=== PATIENT | male | born 1950 | race Caucasian/White ===

== ENCOUNTER 2018-10-04 13:05 | Inpatient (IN) | payer MEDICARE, OTHER, SELFPAY ==
[2018-10-04 13:18] VITALS: BP 129/78; PULSE 70; RESP 18; TEMP 36.4; O2SAT 97; BMI 30.9
[2018-10-04] MEDS: oxyCODONE 5 MG Tablet PO ×3 (14:32→23:51)
--- NOTE | 2018-10-04 14:48 | CON.PCM_ITS ---
Problem List (1) Closed right hip fracture Status: Acute (2) Hypertension Status: Chronic Reason for Consult Date of Consultation: 10/04/18 Reason for Consultation: Acute rehab after right hip fracture status post ORIF History of Present Illness: The patient is a 67 year old M with history of hypertension and back pain and history of fall is being admitted in acute rehab after closed right hip surgery status post right ORIF with IM nailing on 09/28 2018. The patient has history of hypertension and was taking losartan?HCTZ 50-12.5 mg 1 tablet daily at home but his blood pressure was low during hospital stay and medication was held. Patient also has mild constipation and small bowel movement yesterday. Patient had by and enlarge uneventful postoperative course except low blood pressure as mentioned above. Right hip is dressing has bloodstained. Patient was seen by orthopedic surgeon DR. MAC [facility] where surgery was done yesterday and was told to keep the dressing for 1 week even though it was blood stained. [] Past Medical History Past Medical History (Chronic Problems): Chronic Problems (Last Reviewed 09/11/18 @ 12:04 by Latha Hardy) Hypertension (Chronic) Medical History: Medical History (Last Reviewed 09/11/18 @ 12:04 by Latha Hardy) Back pain M54.9 Hayfever J30.1 HTN (hypertension) I10 Allergies No Known Allergies Allergy (Verified 09/11/18 12:03) Home Medications: Ambulatory Orders Medication Instructions Recorded Ascorbic Acid [C-1000] 1,000 mg PO DAILY 10/04/18 Cholecalciferol (VIT D3) [Vitamin 1,000 unit PO DAILY 10/04/18 D] Losartan/Hydrochlorothiazide 1 each PO DAILY 10/04/18 [Losartan-Hctz 50-12.5 mg Tab] Oxycodone [Oxyir] 5 - 10 mg PO Q4H PRN PRN 10/04/18 Smoking Status: Current every day smoker - *Family History Paternal History Items: No pertinent history Review of Systems Constitutional: Denies: Chills, Fever, Weight Change HEENT: Denies: Head Aches, Sinus Congestion, Sinus Drainage Cardiovascular: Denies: Chest Pain, Palpitations Respiratory: Denies: Cough, Shortness of breath at rest, Sputum production Gastrointestinal: Denies: Abdominal Pain, Nausea, Vomiting Genitourinary: Denies: Dysuria Musculoskeletal: Reports: Joint Pain, - - Right hip ORIF. Denies: Joint Tenderness Skin: Denies: Rash, Wounds Neurological: Reports: Balance problems, Incoordination. Denies: Focal weakness, Numbness, Tingling Psychiatric: Denies: Anxiety, Depression, Homicidal Ideations, Suicidal Ideations Hematologic/ Lymphatic: Denies: Easy Bruising, Easy Bleeding Patient Problems: Active and Suspected Problems (Last Reviewed 09/11/18 @ 12:04 by Latha Hardy) Closed right hip fracture (Acute) - Physical Exam General: Alert, Oriented x3, Cooperative HEENT: Atraumatic, PERRLA, EOMI, Normocephalic Neck: Supple, No JVD, Negative Carotid Bruits Lungs: Clear to auscultation, Normal air movement, No rhonchi, No wheeze, No rales Cardiovascular: Regular rate, Regular Rhythm, Normal S1, Normal S2, No murmurs Abdomen: Bowel Sounds Present, Soft, Non Tender, Non-Distended Extremities: No edema, Capillary Refill Less than 3 Seconds Skin: Ulcer/ Wound - Right ORIF surgical wound covered with dressing. Dry bloody stain is present, Rash Present - Mild bruise present at the operative site right hip Musculoskeletal: Arthritic Changes, Tenderness - Mild expected tenderness at the operative site on deep palpation Neurological: Cranial nerves II-XII grossly intact Psych/Mental Status: Normal Affect, Appropriate Vital Signs Temp Pulse Resp BP Pulse Ox 97.6 F L 70 18 129/78 H 97 10/04/18 13:18 10/04/18 13:18 10/04/18 13:18 10/04/18 13:18 10/04/18 13:18 Oxygen Delivery Method Room Air Weight: 209 lb 8 oz Body Mass Index (BMI) 30.9 Assessment/Plan All Active Problems (Last Reviewed 09/11/18 @ 12:04 by Latha Hardy) Closed right hip fracture (Acute) Acute bronchitis (Acute) The patient is a 67 year old M with history of hypertension and back pain and history of fall is being admitted in acute rehab after closed right hip surgery status post right ORIF with IM nailing on 09/28 2018. The patient has history of hypertension and was taking losartan?HCTZ 50-12.5 mg 1 tablet daily at home but his blood pressure was low during hospital stay and medication was held. Patient also has mild constipation and small bowel movement yesterday. Right hip is dressing has bloodstained. Patient was seen by orthopedic surgeon DR. MAC [facility] where surgery was done yesterday and was told to keep the dressing for 1 week even though it was blood stained. 1. Right hip closed fracture status post ORIF done at [facility]: PT and OT. Pain control as needed. Patient was discharged on OxyIR. 2. Hypertension: Patient losartan HCTZ 50?12.5 mg once daily. Hold it if systolic blood pressure is less than 120 mmHg. 3. Mild constipation: On MiraLAX and senna S as needed. DVT prophylaxis: Active ambulation. Code Visit Inpatient E&M: 98616 Init Hosp L2
--- NOTE | 2018-10-04 15:48 | PCM.HP.COS ---
<Pepito Angelo - Last Filed: 10/05/18 13:37> History of Present Illness The patient is a 67 year old M [] Past Medical History Past Medical History (Chronic Problems): Chronic Problems (Last Reviewed 09/11/18 @ 12:04 by Latha Hardy) Hypertension (Chronic) Medical History: Medical History (Last Reviewed 09/11/18 @ 12:04 by Latha Hardy) Back pain M54.9 Hayfever J30.1 HTN (hypertension) I10 Allergies No Known Allergies Allergy (Verified 09/11/18 12:03) Home Medications: Ambulatory Orders Medication Instructions Recorded Ascorbic Acid [C-1000] 1,000 mg PO DAILY 10/04/18 Cholecalciferol (VIT D3) [Vitamin 1,000 unit PO DAILY 10/04/18 D] Losartan/Hydrochlorothiazide 1 each PO DAILY 10/04/18 [Losartan-Hctz 50-12.5 mg Tab] Oxycodone [Oxyir] 5 - 10 mg PO Q4H PRN PRN 10/04/18 Patient Problems: Active and Suspected Problems (Last Reviewed 09/11/18 @ 12:04 by Latha Hardy) Closed right hip fracture (Acute) - Physical Exam Vital Signs Temp Pulse Resp BP Pulse Ox 36.6 C 63 12 108/60 94 10/05/18 07:10 10/05/18 09:49 10/05/18 06:39 10/05/18 09:49 10/05/18 06:39 Oxygen Flow Rate (L/min) 3 Oxygen Delivery Method Nasal Cannula Weight: 95 kg Body Mass Index (BMI) 30.9 Intake and Output for Last 24 Hours 10/03/18 10/04/18 10/05/18 23:59 23:59 23:59 Intake Total 240 / 240 400 / 400 Output Total 350 / 350 450 / 450 Balance -110 / -110 -50 / -50 Laboratory Tests Past 24 Hrs 10/05/18 10/05/18 10/05/18 06:24 06:24 06:24 WBC 8.8 RBC 3.47 L Hgb 10.2 L Hct 30.7 L MCV 88.5 MCH 29.4 MCHC 33.2 RDW 12.4 RDW Differential 40.3 Plt Count 187 MPV 9.2 Sodium 139 Potassium 4.1 Chloride 104 Carbon Dioxide 28.0 Anion Gap 7 BUN 28 H Creatinine 1.11 Estim Creat Clear Calc 66.35 Est GFR (MDRD) Af Amer 85 Est GFR (MDRD) Non-Af 71 BUN/Creatinine Ratio 25.2 H Glucose 110 H Calcium 8.1 L Phosphorus 3.0 Magnesium 2.3 Troponin I < 0.015 10/05/18 10/05/18 09:05 12:55 WBC RBC Hgb Hct MCV MCH MCHC RDW RDW Differential Plt Count MPV Sodium Potassium Chloride Carbon Dioxide Anion Gap BUN Creatinine Estim Creat Clear Calc Est GFR (MDRD) Af Amer Est GFR (MDRD) Non-Af BUN/Creatinine Ratio Glucose Calcium Phosphorus Magnesium Troponin I < 0.015 Pending Assessment/Plan All Active Problems (Last Reviewed 09/11/18 @ 12:04 by Latha Hardy) Closed right hip fracture (Acute) Acute bronchitis (Acute) Patient interviewed and examined. Agree with nurse practitioner notes. He appears to have suffered a right hip fracture which then subsequently led to a fall. He is now status post ORIF. He reports constipation but no other complaints. Describe what sounds like REM sleep behavior disorder as well although at this point he does not feel that this is a major issue and does not want this treated will monitor. Plan as above. <JuanCamila hoang - Last Filed: 10/05/18 15:37> History of Present Illness Date of Admission: 10/04/18 Chief Complaint: ORIF Right Hip The patient is a 67 year old right handed male, who was admitted to the rehab unit for rehabilitation after suffering a Mechanical fall from standing. He has a PMH of Hypertension and is on Losartan-HCTZ at home. He under went an ORIF of the right hip with IM nailing by Dr. Terry at [facility] on 09/28/18, postoperative course was uneventful except for low blood pressure during his hospital stay, his BP medication was held. On admission here, his blood pressure is 129/78. Weight bearing status is as tolerated with full range of motion, quad isometrics but no straight leg raises or active abduction. He lives with his girlfriend in a single story home with 3 steps to get into the house. He was previously completely functionally independent and is admitted to the rehab unit in order to restore his previous level of functional independence. Past Medical History Medical History: Medical History (Last Reviewed 09/11/18 @ 12:04 by Ltaha Hardy) Back pain M54.9 Hayfever J30.1 HTN (hypertension) I10 Allergies No Known Allergies Allergy (Verified 09/11/18 12:03) Surgical History: cataract, - - Cyst removed from gum-oral Lives: Spouse/ Significant Other Smoking Status: Current every day smoker Tobacco Use: Cigars, Chew Alcohol: Occasional Drugs: None - *Family History Paternal History Items: No pertinent history Review of Systems Constitutional: Denies: Chills, Fever, Weight Change HEENT: Denies: Head Aches, Sinus Congestion, Sinus Drainage Cardiovascular: Denies: Chest Pain, Palpitations Respiratory: Denies: Cough, Shortness of breath at rest, Sputum production Gastrointestinal: Denies: Abdominal Pain, Nausea, Vomiting Genitourinary: Denies: Dysuria Musculoskeletal: Denies: Joint Pain, Joint Tenderness Skin: Denies: Rash, Wounds Neurological: Denies: Numbness, Tingling, Focal weakness Psychiatric: Denies: Anxiety, Depression, Homicidal Ideations, Suicidal Ideations Hematologic/ Lymphatic: Denies: Easy Bruising, Easy Bleeding VTE Information - Inpt Only VTE Present on Admission: No VTE Mechan Device Prophylaxis: SCD's, Knee High ULICES Hose VTE Pharm Prophylaxis ordered?: Yes - Physical Exam General: Alert, Oriented x3, Cooperative HEENT: Atraumatic, PERRLA, EOMI, Normocephalic Neck: Supple, No JVD, Negative Carotid Bruits Lungs: Clear to auscultation, Normal air movement Cardiovascular: Regular rate, No murmurs Abdomen: Bowel Sounds Present, Soft, Non Tender Extremities: No edema, Capillary Refill Less than 3 Seconds, - - Right hip incision - optifoam Skin: No rashes, No breakdown Musculoskeletal: No Tenderness to Palpation of Joints or Extremities Neurological: Cranial nerves II-XII grossly intact Psych/Mental Status: Normal Affect, Appropriate, Alert and oriented to time, place, person, mood and affect Vital Signs Temp Pulse Resp BP Pulse Ox 97.6 F L 70 18 129/78 H 97 10/04/18 13:18 10/04/18 13:18 10/04/18 13:18 10/04/18 13:18 10/04/18 13:18 Oxygen Delivery Method Room Air Weight: 95.028 kg Body Mass Index (BMI) 30.9 Active Medications Acetaminophen (Tylenol) 1,000 mg PO TID [facility] Ascorbic Acid (Vitamin C) 1,000 mg PO DAILY [facility] Stop: 11/03/18 08:01 Bisacodyl (Dulcolax) 10 mg RECTAL .PRN X 1 PRN PRN Reason: Constipation Cholecalciferol (Vitamin D) 1,000 unit PO DAILY [facility] Hydrochlorothiazide (Hydrochlorothiazide) 12.5 mg PO DAILY [facility] Losartan Potassium (Cozaar) 50 mg PO DAILY [facility] Magnesium Hydroxide (Milk Of Magnesia) 30 ml PO .PRN X 1 PRN PRN Reason: Constipation Oxycodone HCl (Oxyir) 5 - 10 mg PO Q4H PRN PRN PRN Reason: PAIN Last Admin: 10/04/18 14:32 Dose: 10 mg Polyethylene Glycol (Miralax) 17 gm PO BID [facility] Senna/Docusate Sodium (Senokot-S, Angela-Colace) 2 tablet PO BID [facility] Assessment/Plan Debility status post Right ORIF with IM nailing. Goal of rehab is episcopalian of prior level of functional independence. Plan: - Physical therapy for gait and balance - Occupational Therapy for ADLs - Speech therapy - As needed analgesics - Bowel protocol - DVT prophylaxis: SCDs, ASA 81 mg BID x i month, per Orthopedics team, - Hypertension: Stable with good control, continue home dose of Losartan - HCTZ - Post op anemia, (did not require blood transfusion) - resolved Hgb on discharge from [facility] was 11.6. - B/L TKA Incision site C/D/I, => healing nicely, steri strips are beginning to fall off, no redness or warmth noted around incision area. - Tobacco dependence counseled on cessation, offered nicotine patch for tobacco cravings, patient refused - NICOLE with CR 1.5 - has resolved, continue to monitor renal panel - Hematuria - recheck urine on admission - Weight bearing status => WBAT with full range of motion, quad isometrics but no straight leg raises or active abduction - Wound care => leave dressing intact, may shower, may remove optifoam dressing in 7 - 10 days, leave prineo tape stripe for 2-3 weeks. - Incision site => The Dressing has small amount of bloody drainage, there is slight edema around the incision, with ecchymosis along the thigh and back of knee - Follow up appointment with Dr. Lima in 2-3 weeks, call to make an appointment
--- NOTE | 2018-10-04 16:07 | HP.PCM.COS_ITS ---
<Pepito Angelo - Last Filed: 10/05/18 13:37> History of Present Illness The patient is a 67 year old M [] Past Medical History Past Medical History (Chronic Problems): Chronic Problems (Last Reviewed 09/11/18 @ 12:04 by Latha Hardy) Hypertension (Chronic) Medical History: Medical History (Last Reviewed 09/11/18 @ 12:04 by Latha Hardy) Back pain M54.9 Hayfever J30.1 HTN (hypertension) I10 Allergies No Known Allergies Allergy (Verified 09/11/18 12:03) Home Medications: Ambulatory Orders Medication Instructions Recorded Ascorbic Acid [C-1000] 1,000 mg PO DAILY 10/04/18 Cholecalciferol (VIT D3) [Vitamin 1,000 unit PO DAILY 10/04/18 D] Losartan/Hydrochlorothiazide 1 each PO DAILY 10/04/18 [Losartan-Hctz 50-12.5 mg Tab] Oxycodone [Oxyir] 5 - 10 mg PO Q4H PRN PRN 10/04/18 Patient Problems: Active and Suspected Problems (Last Reviewed 09/11/18 @ 12:04 by Latha Hardy) Closed right hip fracture (Acute) - Physical Exam Vital Signs Temp Pulse Resp BP Pulse Ox 36.6 C 63 12 108/60 94 10/05/18 07:10 10/05/18 09:49 10/05/18 06:39 10/05/18 09:49 10/05/18 06:39 Oxygen Flow Rate (L/min) 3 Oxygen Delivery Method Nasal Cannula Weight: 95 kg Body Mass Index (BMI) 30.9 Intake and Output for Last 24 Hours 10/03/18 10/04/18 10/05/18 23:59 23:59 23:59 Intake Total 240 / 240 400 / 400 Output Total 350 / 350 450 / 450 Balance -110 / -110 -50 / -50 Laboratory Tests Past 24 Hrs 10/05/18 10/05/18 10/05/18 06:24 06:24 06:24 WBC 8.8 RBC 3.47 L Hgb 10.2 L Hct 30.7 L MCV 88.5 MCH 29.4 MCHC 33.2 RDW 12.4 RDW Differential 40.3 Plt Count 187 MPV 9.2 Sodium 139 Potassium 4.1 Chloride 104 Carbon Dioxide 28.0 Anion Gap 7 BUN 28 H Creatinine 1.11 Estim Creat Clear Calc 66.35 Est GFR (MDRD) Af Amer 85 Est GFR (MDRD) Non-Af 71 BUN/Creatinine Ratio 25.2 H Glucose 110 H Calcium 8.1 L Phosphorus 3.0 Magnesium 2.3 Troponin I < 0.015 10/05/18 10/05/18 09:05 12:55 WBC RBC Hgb Hct MCV MCH MCHC RDW RDW Differential Plt Count MPV Sodium Potassium Chloride Carbon Dioxide Anion Gap BUN Creatinine Estim Creat Clear Calc Est GFR (MDRD) Af Amer Est GFR (MDRD) Non-Af BUN/Creatinine Ratio Glucose Calcium Phosphorus Magnesium Troponin I < 0.015 Pending Assessment/Plan All Active Problems (Last Reviewed 09/11/18 @ 12:04 by Latha Hardy) Closed right hip fracture (Acute) Acute bronchitis (Acute) Patient interviewed and examined. Agree with nurse practitioner notes. He appears to have suffered a right hip fracture which then subsequently led to a fall. He is now status post ORIF. He reports constipation but no other complaints. Describe what sounds like REM sleep behavior disorder as well although at this point he does not feel that this is a major issue and does not want this treated will monitor. Plan as above. <JuanCamila hoang - Last Filed: 10/05/18 15:37> History of Present Illness Date of Admission: 10/04/18 Chief Complaint: ORIF Right Hip The patient is a 67 year old right handed male, who was admitted to the rehab unit for rehabilitation after suffering a Mechanical fall from standing. He has a PMH of Hypertension and is on Losartan-HCTZ at home. He under went an ORIF of the right hip with IM nailing by Dr. Terry at [facility] on 09/28/18, postoperative course was uneventful except for low blood pressure during his hospital stay, his BP medication was held. On admission here, his blood pressure is 129/78. Weight bearing status is as tolerated with full range of motion, quad isometrics but no straight leg raises or active abduction. He lives with his girlfriend in a single story home with 3 steps to get into the house. He was previously completely functionally independent and is admitted to the rehab unit in order to restore his previous level of functional independence. Past Medical History Medical History: Medical History (Last Reviewed 09/11/18 @ 12:04 by Latha Hardy) Back pain M54.9 Hayfever J30.1 HTN (hypertension) I10 Allergies No Known Allergies Allergy (Verified 09/11/18 12:03) Surgical History: cataract, - - Cyst removed from gum-oral Lives: Spouse/ Significant Other Smoking Status: Current every day smoker Tobacco Use: Cigars, Chew Alcohol: Occasional Drugs: None - *Family History Paternal History Items: No pertinent history Review of Systems Constitutional: Denies: Chills, Fever, Weight Change HEENT: Denies: Head Aches, Sinus Congestion, Sinus Drainage Cardiovascular: Denies: Chest Pain, Palpitations Respiratory: Denies: Cough, Shortness of breath at rest, Sputum production Gastrointestinal: Denies: Abdominal Pain, Nausea, Vomiting Genitourinary: Denies: Dysuria Musculoskeletal: Denies: Joint Pain, Joint Tenderness Skin: Denies: Rash, Wounds Neurological: Denies: Numbness, Tingling, Focal weakness Psychiatric: Denies: Anxiety, Depression, Homicidal Ideations, Suicidal Ideations Hematologic/ Lymphatic: Denies: Easy Bruising, Easy Bleeding VTE Information - Inpt Only VTE Present on Admission: No VTE Mechan Device Prophylaxis: SCD's, Knee High ULICES Hose VTE Pharm Prophylaxis ordered?: Yes - Physical Exam General: Alert, Oriented x3, Cooperative HEENT: Atraumatic, PERRLA, EOMI, Normocephalic Neck: Supple, No JVD, Negative Carotid Bruits Lungs: Clear to auscultation, Normal air movement Cardiovascular: Regular rate, No murmurs Abdomen: Bowel Sounds Present, Soft, Non Tender Extremities: No edema, Capillary Refill Less than 3 Seconds, - - Right hip incision - optifoam Skin: No rashes, No breakdown Musculoskeletal: No Tenderness to Palpation of Joints or Extremities Neurological: Cranial nerves II-XII grossly intact Psych/Mental Status: Normal Affect, Appropriate, Alert and oriented to time, place, person, mood and affect Vital Signs Temp Pulse Resp BP Pulse Ox 97.6 F L 70 18 129/78 H 97 10/04/18 13:18 10/04/18 13:18 10/04/18 13:18 10/04/18 13:18 10/04/18 13:18 Oxygen Delivery Method Room Air Weight: 95.028 kg Body Mass Index (BMI) 30.9 Active Medications Acetaminophen (Tylenol) 1,000 mg PO TID [facility] Ascorbic Acid (Vitamin C) 1,000 mg PO DAILY [facility]ir[facility] (Ecotrin) [facility] Stop: 11/03/18 08:01 Bisacodyl (Dulcolax) 10 mg RECTAL .PRN X 1 PRN PRN Reason: Constipation Cholecalciferol (Vitamin D) 1,000 unit PO DAILY [facility] Hydrochlorothiazide (Hydrochlorothiazide) 12.5 mg PO DAILY [facility] Losartan Potassium (Cozaar) 50 mg PO DAILY [facility] Magnesium Hydroxide (Milk Of Magnesia) 30 ml PO .PRN X 1 PRN PRN Reason: Constipation Oxycodone HCl (Oxyir) 5 - 10 mg PO Q4H PRN PRN PRN Reason: PAIN Last Admin: 10/04/18 14:32 Dose: 10 mg Polyethylene Glycol (Miralax) 17 gm PO BID [facility] Senna/Docusate Sodium (Senokot-S, Angela-Colace) 2 tablet PO BID [facility] Assessment/Plan Debility status post Right ORIF with IM nailing. Goal of rehab is sabianist of prior level of functional independence. Plan: - Physical therapy for gait and balance - Occupational Therapy for ADLs - Speech therapy - As needed analgesics - Bowel protocol - DVT prophylaxis: SCDs, ASA 81 mg BID x i month, per Orthopedics team, - Hypertension: Stable with good control, continue home dose of Losartan - HCTZ - Post op anemia, (did not require blood transfusion) - resolved Hgb on discharge from [facility] was 11.6. - B/L TKA Incision site C/D/I, => healing nicely, steri strips are beginning to fall off, no redness or warmth noted around incision area. - Tobacco dependence counseled on cessation, offered nicotine patch for tobacco cravings, patient refused - NICOLE with CR 1.5 - has resolved, continue to monitor renal panel - Hematuria - recheck urine on admission - Weight bearing status => WBAT with full range of motion, quad isometrics but no straight leg raises or active abduction - Wound care => leave dressing intact, may shower, may remove optifoam dressing in 7 - 10 days, leave prineo tape stripe for 2-3 weeks. - Incision site => The Dressing has small amount of bloody drainage, there is slight edema around the incision, with ecchymosis along the thigh and back of knee - Follow up appointment with Dr. iLma in 2-3 weeks, call to make an appointment
[2018-10-04] MEDS: Aspirin E.C. 81 MG Tablet PO (16:55)
[2018-10-04 19:37] VITALS: BP 131/65; PULSE 85; RESP 16; TEMP 36.6; O2SAT 97
[2018-10-04] MEDS: Acetaminophen 500 MG Tablet 1000 MG PO (21:58)
[2018-10-04] MEDS: Senna/Docusate Sodium 1 Tablet 2 TABLET PO (21:59)
[2018-10-04] MEDS: Polyethylene Glycol 3350 17 GM PACKET PO (21:59)
[2018-10-05] VITALS (7 sets, daily range): BP systolic 88–115; BP diastolic 50–62; PULSE 63–74; RESP 12–16; TEMP 36.4–36.6; O2SAT 91–97
[2018-10-05] MEDS: Acetaminophen 500 MG Tablet 1000 MG PO ×3 (05:00→21:06)
--- NOTE | 2018-10-05 06:02 | NURSING ---
PT REPORTS TO HAVE DISCOMFORT UNDER L BREAST AFTER RETURNING TO RECLINER AFTER SHOWER. DENIES NAUSEA, SHORTNESS OF BREATH. SKIN WARM AND DRY. VITAL SIGNS OBTAINED AND PT PLACED ON O2 PER N/C FOR PULSE OX OF 91% ON ROOM AIR. PAIN LASTS FEW MINUTES AND THEN IS GONE.
--- NOTE | 2018-10-05 06:10 | NURSING ---
PAGE PLACED TO HOSPITALIST PER [facility] GEAR TECHNICIAN.
--- NOTE | 2018-10-05 06:15 | NURSING ---
DR JOHNSON NOTIFIED OF PT'S BRIEF EPISODE OF L BREAST PAIN, CURRENT VITAL SIGNS. ORDERS GIVEN. TROPONIN #1 DRAWN PER LAB.
--- NOTE | 2018-10-05 06:17 | EKG12_ITS ---
Test Reason : CP Blood Pressure : / mmHG Vent. Rate : 066 BPM Atrial Rate : 066 BPM P-R Int : 180 ms QRS Dur : 100 ms QT Int : 414 ms P-R-T Axes : 024 005 027 degrees QTc Int : 434 ms Normal sinus rhythm Normal ECG No previous ECGs available Confirmed by VILMA ROCA, ANGELINE ([id number]), city editor ELIAZAR CUEVA ([id number] on 10/07/2018 2:14:32 PM Referred By: Pepito Angelo Confirmed By:ANGELINE ESPARZA MD
--- NOTE | 2018-10-05 06:28 | NURSING ---
EKG IN PROGRESS. PT REMAINS PAIN FREE.
--- NOTE | 2018-10-05 06:40 | NURSING ---
DR ANGEL NAVARRO NOTIFIED OF EKG RESULTS WHICH READ NORMAL. PT REMAINS PAIN FREE TO CHEST. OCC. LOOSE COUGH NOTED, PT STATES HE COUGHED UP A SMALL AMT OF YELLOW SPUTUM.
[2018-10-05 06:43] LABS: BUN 28 mg/dL (7-18); BUN/Creat Ratio 25.2 RATIO (10-20); Calcium,Total 8.1 mg/dL (8.5-10.1); Chloride 104 mmol/L (98-107); Creatinine, Serum 1.11 mg/dL (0.70-1.30); EST Glomerular Filtration Rate 71 mL/min (>60); Est Glom Filt Rate - Afr Amer 85 mL/min (>60); Estimated Creatinine Clearance 66.35 ml/min; Glucose 110 mg/dL (74-106); Magnesium 2.3 mg/dL (1.6-2.6); Potassium 4.1 mmol/L (3.5-5.1); Sodium Level 139 mmol/L (136-145)
[2018-10-05 06:44] LABS: Anion Gap 7 (5-15)
[2018-10-05 06:49] LABS: Hematocrit 30.7 % (40-54); Hemoglobin 10.2 g/dl (13.0-16.5); Mean Corp Hgb Conc 33.2 g/gl (32-36); Mean Corpuscular Hgb 29.4 pg (27.0-32.0); Mean Corpuscular Volume 88.5 fL (80-94); Mean Platelet Vol. 9.2 fl (6.2-12.0); Platelet Count 187 K/mm3 (150-450); RBC Distribution Width CV 12.4 % (11.6-14.6); RBC Distribution Width SD 40.3 fl (35.1-43.9); Red Blood Count 3.47 M/mm3 (4.6-6.2); White Blood Count 8.8 K/mm3 (4.4-11.0)
[2018-10-05 06:58] LABS: Scan Indicated on CBC? Y/N NO
[2018-10-05] MEDS: oxyCODONE 5 MG Tablet PO ×3 (08:42→19:32)
--- NOTE | 2018-10-05 09:15 | PCM.PN.NEU ---
Patient Problems: Active and Suspected Problems (Last Reviewed 09/11/18 @ 12:04 by Latha Hardy) Closed right hip fracture (Acute) Subjective: Patient seen and examined. During the night the staff stated the patient was screaming during his sleep. Patient does not recall this happening, it has happen in the pass according to the patient at least 2 other times, in the last 4 years, and once in the pass few weeks prior to his falling and hurting his hip. He also experienced some mild chest pain this morning, an EKG was done and showed a regular rate, and rhythm with no abnormal wave forms. Set of 3 Troponin was <0.015. pain has since resolved. - Physical Exam General: Alert, Oriented x3, Cooperative HEENT: Atraumatic, PERRLA, EOMI, Normocephalic Neck: Supple, No JVD, Negative Carotid Bruits Lungs: Clear to auscultation, Normal air movement Cardiovascular: Regular rate, No murmurs Abdomen: Bowel Sounds Present, Soft, Non Tender Extremities: No edema, Capillary Refill Less than 3 Seconds Skin: No rashes, No breakdown Musculoskeletal: No Tenderness to Palpation of Joints or Extremities Neurological: Cranial nerves II-XII grossly intact Psych/Mental Status: Alert and oriented to time, place, person, mood and affect Vital Signs Temp Pulse Resp BP Pulse Ox 97.8 F 74 12 99/60 94 10/05/18 07:10 10/05/18 06:39 10/05/18 06:39 10/05/18 07:10 10/05/18 06:39 Oxygen Flow Rate (L/min) 3 Oxygen Delivery Method Nasal Cannula Weight: 95.028 kg Body Mass Index (BMI) 30.9 Intake and Output for Last 24 Hours 10/03/18 10/04/18 10/05/18 23:59 23:59 23:59 Intake Total 240 / 240 400 / 400 Output Total 350 / 350 450 / 450 Balance -110 / -110 -50 / -50 Laboratory Tests Past 24 Hrs 10/05/18 10/05/18 10/05/18 06:24 06:24 06:24 WBC 8.8 RBC 3.47 L Hgb 10.2 L Hct 30.7 L MCV 88.5 MCH 29.4 MCHC 33.2 RDW 12.4 RDW Differential 40.3 Plt Count 187 MPV 9.2 Sodium 139 Potassium 4.1 Chloride 104 Carbon Dioxide 28.0 Anion Gap 7 BUN 28 H Creatinine 1.11 Estim Creat Clear Calc 66.35 Est GFR (MDRD) Af Amer 85 Est GFR (MDRD) Non-Af 71 BUN/Creatinine Ratio 25.2 H Glucose 110 H Calcium 8.1 L Phosphorus 3.0 Magnesium 2.3 Troponin I < 0.015 10/05/18 09:05 WBC RBC Hgb Hct MCV MCH MCHC RDW RDW Differential Plt Count MPV Sodium Potassium Chloride Carbon Dioxide Anion Gap BUN Creatinine Estim Creat Clear Calc Est GFR (MDRD) Af Amer Est GFR (MDRD) Non-Af BUN/Creatinine Ratio Glucose Calcium Phosphorus Magnesium Troponin I Pending Active Medications Acetaminophen (Tylenol) 1,000 mg PO TID [facility] Last Admin: 10/05/18 05:00 Dose: 1,000 mg Ascorbic Acid (Vitamin C) 1,000 mg PO DAILY [facility] Stop: 11/03/18 08:01 Last Admin: 10/04/18 16:55 Dose: 81 mg Bisacodyl (Dulcolax) 10 mg RECTAL .PRN X 1 PRN PRN Reason: Constipation Cholecalciferol (Vitamin D) 1,000 unit PO DAILY [facility] Hydrochlorothiazide (Hydrochlorothiazide) 12.5 mg PO DAILY [facility] Influenza Virus Vaccine Quadrival (Fluarix/Fluzone) 0.5 ml IM .ONCE ONE Stop: 10/05/18 10:01 Losartan Potassium (Cozaar) 50 mg PO DAILY [facility] Magnesium Hydroxide (Milk Of Magnesia) 30 ml PO .PRN X 1 PRN PRN Reason: Constipation Oxycodone HCl (Oxyir) 5 - 10 mg PO Q4H PRN PRN PRN Reason: PAIN Last Admin: 10/05/18 08:42 Dose: 10 mg Polyethylene Glycol (Miralax) 17 gm PO BID [facility] Last Admin: 10/04/18 21:59 Dose: 17 gm Senna/Docusate Sodium (Senokot-S, Angela-Colace) 2 tablet PO BID [facility] Last Admin: 10/04/18 21:59 Dose: 2 tablet Medical Necessity - Tobacco Use Smoking Status: Current every day smoker Tobacco Use: Cigars, Chew Assessment/Plan All Active Problems (Last Reviewed 09/11/18 @ 12:04 by Latha Hardy) Closed right hip fracture (Acute) Acute bronchitis (Acute) Debility status post Right ORIF with IM nailing. Goal of rehab is confucianist of prior level of functional independence. Plan: - Physical therapy for gait and balance - Occupational Therapy for ADLs - Speech therapy - As needed analgesics - Bowel protocol - DVT prophylaxis: SCDs, ASA 81 mg BID x i month, per Orthopedics team, - Hypertension: Stable with good control, continue home dose of Losartan - HCTZ - Post op anemia, (did not require blood transfusion) - resolved Hgb on discharge from [facility] was 11.6. - B/L TKA Incision site C/D/I, => healing nicely, steri strips are beginning to fall off, no redness or warmth noted around incision area. - Tobacco dependence counseled on cessation, offered nicotine patch for tobacco cravings, patient refused - NICOLE with CR 1.5 - has resolved, continue to monitor renal panel - Hematuria - recheck urine on admission - Weight bearing status => WBAT with full range of motion, quad isometrics but no straight leg raises or active abduction - Wound care => leave dressing intact, may shower, may remove optifoam dressing in 7 - 10 days, leave prineo tape stripe for 2-3 weeks. - Incision site => The Dressing has small amount of bloody drainage, there is slight edema around the incision, with ecchymosis along the thigh and back of knee - Follow up appointment with Dr. Lima in 2-3 weeks, call to make an appointment - Acute chest pain - Negative Troponin x 3 and EKG with a regular rate and rhythm, with no abnormal wave form
[2018-10-05] MEDS: Polyethylene Glycol 3350 17 GM PACKET PO ×2 (09:52→21:05)
[2018-10-05] MEDS: Ascorbic Acid 500 MG Tablet 1000 MG PO (09:52)
[2018-10-05] MEDS: Senna/Docusate Sodium 1 Tablet 2 TABLET PO ×2 (09:52→21:05)
[2018-10-05] MEDS: Aspirin E.C. 81 MG Tablet PO ×2 (09:54→17:17)
--- NOTE | 2018-10-05 13:39 | REHABEVAL_ITS ---
Admission Information Status Changes from Prescreening?: No changes Identified Actual Problem List:: Falls, Skin Intergrity, Pain, ALteration in Cmfrt, Bowel, Constipation, Alteration in Sleep, Mobility Impaired, Self Care Deficit, BP, Hypertension, Ineffect.D/C Plan r/t Psy Potential Problem List:: DVT, Bleeding, Infection, UTI, Aspiration, Falls, Skin Integrity, Depression Risk of Complications DVT: LMWH, ULICES Hose, Sequential Compression Device Bleeding: Monitor Lab Values, Nursing to Teach Precautions for anti-coagulation therapy., Wound, if applicable, to be assessed every shift., Stroke patients assessed for lethargy or change in status. Infection: Clinical Staff to Monitor for S/S of infection:, S/S of infection include fever, redness, warmth, etc. Urinary Tract Infection: Monitor for frequency, burning, discomfort, or incontinence., Nursing will obtain urine sample for urinalysis and C&S when ordered. Aspiration: Clinical staff will monitor for coughing, drooling, congestion., Speech will evaluate swallowing and dsyphasia., Nursing will monitor patient swallowing during meals. Falls: Patient will be evaluated for Fall Precautions, Patient will be placed on Fall Precautions as indicated per protocol. Skin Breakdown: Nursing will assess skin daily using assessment tool., Nursing will place on Skin Breakdown Precautions as indicated. Pain: Clinical staff will assess patient's pain level per protocol., Medications will be given, if needed, and the pain level reassessed., Other methods: Massage, distraction, decrease stimulus, etc. used PRN. Plan of Care Patient requires physician specializing in physical medicine and rehab oversight to provide close medical supervision of rehab issues including: Pain Management, Sleep Problems, Bowel and Bladder, Medical and co-morbidity Management, DVT prophylaxis, Rehabilitation Leadership, Coordination of treatment team Patient needs Physical Therapy: For a minimum of 1 hour, At least 5 out of 7 days Patient needs Physical Therapy to improve:: Mobility, Mobility, Mobility, Strengthening, Transfers, Stretching, ROM, Endurance, Stairs, Gait, Balance Patient needs Occupational Therapy: For a minimum of 1 hour, At least 5 out of 7 days Patient needs Occupational Therapy to improve ADL's incl.: Eating, Grooming, Bathing, Dressing, Toileting, Toilet transfers, Community Reintegration, Higher functioning activities, Household tasks, Adaptive Equipment, Splinting, Other activities as determined Patient requires 31/05 Rehabilitation Nursing for: Pain Issues, Identifying and preventing risk factors, Monitoring and reporting current medical conditions, Assisting with ambulation, transfer, and all ADL's, Teaching patients about disease process and medications, Family teaching, Providing safe environment, Bowel and Bladder Issues, Skin integrity, Medication Management Patient needs Ob/Gyn Physician/ Case Management for: Discharge Planning, Arranging Home Equipment or Services, Family Interventions Patient needs Dietary and Nutrition Services for: Adequate Nutrition, Nutritional Supplements, Nutritional Education Goals Patient will remain: free from falls, or injury at time of discharge. Patient will perform bed mobility at: MOD I level of assist. Patient will complete transfers from bed to chair at: MOD I level of assist. Patient will ambulate: 100 feet, with MOD I assist, with LRD Patient will complete upper body dressing at: MOD I level of assist. Patient will complete lower body dressing at: MOD I level of assist. Patient will complete toileting at: MOD I level of assist. Patient will perform bathing at: MOD I level of assist. Patient will complete grooming at: MOD I level of assist. Patient will complete home management skills at: MOD I level of assist. Patient will achieve: 12 stairs, at MOD I assist Patient will have pain level of: of 3 or less Patient's skin will: remain intact, free from infection. Patient will receive: adequate nutrition. Discharge Planning Pt Prognosis for Sig. Practical Improv. w/in Reasonable Time: Good Anticipated D/C Destination: Home with Outpt Therapy Was Preadmission Assessment Accurate?: Yes
[2018-10-05 15:04] LABS: Bacteria 0 SEEN /hpf (None Seen); Mucous, Urine 0 SEEN /hpf (<or=2+); Squamous Epithelial Cells - UA 0 SEEN /hpf (0-5)
[2018-10-05 15:14] LABS: Color, Urine Yellow (Yellow); Glucose, Dipstick Normal (Normal); Ketone-Dipstick Negative (Negative); Leukocyte Esterase-Dipstick Negative /ul (Negative); Nitrite-Dipstick Negative (Negative); Occult Blood-Urine 150 /ul (Negative); Protein-Dipstick Negative (Negative); Urine Bilirubin Dipstick Negative (Negative); Urine Clarity Clear (Clear); Urine Urobilinogen Normal (Normal)
--- NOTE | 2018-10-05 15:21 | NURSING ---
removed old bloody dressing, cleaned area with NS and reapplied abd pad to monitor for any new drainage. Pt tolerated well.
[2018-10-05 15:27] LABS: Red Blood Cells-Urine 0-5 SEEN /hpf (0-5); White Blood Cells 0-5 SEEN /hpf (0-5)
--- NOTE | 2018-10-05 16:18 | CHAPLAIN ---
Type of Pastoral Visit _x__ Initial Visit ___ Follow-up Visit ___ On-call Visit ___ General Patient Visit ___ Spiritual Assessment ___ Family Conference ___ Bereavement ___ Rapid Response ___ Code Blue ___ Other (describe below) Pastoral Care Referral From _x__ Patient ___ Family ___ Nurse ___ Physician ___ Automatic Bow Maker Machine Tender ___ Social Services Counselor ___ Other (describe below) Sacrament/Intervention ___ Active listening ___ Anointing ___ Lutheran ___ Bereavement ___ Communion ___ Mirian exploration ___ ___ Life review ___ Prayer ___ Reconciliation ___ Sacrament of Sick _x__ Supportive presence ___ Wedding ___ Other (describe below) Pastoral Comments this was a brief encounter as patient had a number of visitors; pt did give viscose department worker his first impressions of the care he is receiving and said that he is very pleased; pt would welcome a further visit at another time
--- NOTE | 2018-10-05 20:58 | NURSING ---
this nurse explained to pt that we could not use home medication of calcium, magnesium and zinc combo since we have all of those medications in our pharmacy here. pt states he does not need to take the medication while here. med was only for his skin and healing of scrapes and it does not need to be added to his mar at this time.
--- NOTE | 2018-10-05 21:12 | NURSING ---
warm prune juice given per pt request for bowels.
--- NOTE | 2018-10-06 01:12 | NURSING ---
Reviewed and agree with STATE AUDITOR documentation and FIMs charting.
[2018-10-06] MEDS: oxyCODONE 5 MG Tablet PO ×4 (03:15→17:27)
[2018-10-06 06:25] VITALS: O2SAT 94
[2018-10-06] MEDS: Acetaminophen 500 MG Tablet 1000 MG PO ×3 (06:25→22:22)
[2018-10-06 06:48] VITALS: BP 114/61; PULSE 94; RESP 18; TEMP 36.4; O2SAT 94
[2018-10-06] MEDS: Polyethylene Glycol 3350 17 GM PACKET PO ×2 (08:07→22:22)
[2018-10-06] MEDS: Senna/Docusate Sodium 1 Tablet 2 TABLET PO ×2 (08:09→22:22)
[2018-10-06] MEDS: Ascorbic Acid 500 MG Tablet 1000 MG PO (08:10)
[2018-10-06] MEDS: Aspirin E.C. 81 MG Tablet PO ×2 (08:10→17:24)
--- NOTE | 2018-10-06 11:22 | PN.NEURO_ITS ---
Patient Problems: Active and Suspected Problems (Last Reviewed 09/11/18 @ 12:04 by Latha Hardy) Closed right hip fracture (Acute) Subjective: Patient seen and examined. Having increased pain, start low dose Fentanyl patch. He is tolerating therapy. No issues with sleep last night. Tolerating regular diet. Denies any shortness of breath or chest pains. - Physical Exam General: Alert, Oriented x3, Cooperative HEENT: Atraumatic, PERRLA, EOMI, Normocephalic Neck: Supple, No JVD, Negative Carotid Bruits Lungs: Clear to auscultation, Normal air movement Cardiovascular: Regular rate, No murmurs Abdomen: Bowel Sounds Present, Soft, Non Tender Extremities: No edema, Capillary Refill Less than 3 Seconds Skin: No rashes, No breakdown Musculoskeletal: No Tenderness to Palpation of Joints or Extremities Neurological: Cranial nerves II-XII grossly intact Psych/Mental Status: Normal Affect, Appropriate, Alert and oriented to time, place, person, mood and affect Vital Signs Temp Pulse Resp BP Pulse Ox 97.6 F L 94 18 114/61 94 10/06/18 06:48 10/06/18 06:48 10/06/18 06:48 10/06/18 06:48 10/06/18 06:48 Oxygen Flow Rate (L/min) 3 Oxygen Delivery Method Room Air Weight: 95 kg Body Mass Index (BMI) 30.9 Intake and Output for Last 24 Hours 10/04/18 10/05/18 10/06/18 23:59 23:59 23:59 Intake Total 240 / 240 400 / 400 480 / 480 Output Total 350 / 350 775 / 775 Balance -110 / -110 -375 / -375 480 / 480 Laboratory Tests Past 24 Hrs 10/05/18 10/05/18 12:55 14:40 Troponin I < 0.015 Urine Color Yellow Urine Clarity Clear Urine pH 5.0 Ur Specific [place] 1.020 Urine Protein Negative Urine Glucose (UA) Normal Urine Ketones Negative Urine Occult Blood 150 H Urine Nitrite Negative Urine Bilirubin Negative Urine Urobilinogen Normal Ur Leukocyte Esterase Negative Urine RBC 0-5 SEEN Urine WBC 0-5 SEEN Ur Squamous Epith Cells 0 SEEN Urine Bacteria 0 SEEN Urine Mucus 0 SEEN Active Medications Acetaminophen (Tylenol) 1,000 mg PO TID [facility] Last Admin: 10/06/18 06:25 Dose: 1,000 mg Ascorbic Acid (Vitamin C) 1,000 mg PO DAILY [facility] Last Admin: 10/06/18 08:10 Dose: 1,000 mg [facility] Stop: 11/03/18 08:01 Last Admin: 10/06/18 08:10 Dose: 81 mg Bacitracin (Bacitracin Ointment) 1 applic TOPICAL BID PRN; Protocol PRN Reason: If blister break apply Bisacodyl (Dulcolax) 10 mg RECTAL .PRN X 1 PRN PRN Reason: Constipation Cholecalciferol (Vitamin D) 1,000 unit PO DAILY [facility] Last Admin: 10/06/18 08:10 Dose: 1,000 unit Hydrochlorothiazide (Hydrochlorothiazide) 12.5 mg PO DAILY [facility] Last Admin: 10/06/18 08:21 Dose: Not Given Losartan Potassium (Cozaar) 50 mg PO DAILY [facility] Last Admin: 10/06/18 08:21 Dose: Not Given Magnesium Hydroxide (Milk Of Magnesia) 30 ml PO .PRN X 1 PRN PRN Reason: Constipation Oxycodone HCl (Oxyir) 5 - 10 mg PO Q4H PRN PRN PRN Reason: PAIN Last Admin: 10/06/18 07:11 Dose: 10 mg Polyethylene Glycol (Miralax) 17 gm PO BID [facility] Last Admin: 10/06/18 08:07 Dose: 17 gm Senna/Docusate Sodium (Senokot-S, Angela-Colace) 2 tablet PO BID [facility] Last Admin: 10/06/18 08:09 Dose: 2 tablet Medical Necessity - Tobacco Use Smoking Status: Current every day smoker Tobacco Use: Cigars, Chew Assessment/Plan All Active Problems (Last Reviewed 09/11/18 @ 12:04 by Latha Hardy) Closed right hip fracture (Acute) Acute bronchitis (Acute) Debility status post Right ORIF with IM nailing. Goal of rehab is synagogue of prior level of functional independence. Plan: - Physical therapy for gait and balance - Occupational Therapy for ADLs - Speech therapy - As needed analgesics - Bowel protocol - DVT prophylaxis: SCDs, ASA 81 mg BID x i month, per Orthopedics team, - Hypertension: Stable with good control, continue home dose of Losartan - HCTZ - Post op anemia, (did not require blood transfusion) - resolved Hgb on discharge from [facility] was 11.6. - B/L TKA Incision site C/D/I, => healing nicely, steri strips are beginning to fall off, no redness or warmth noted around incision area. - Tobacco dependence counseled on cessation, offered nicotine patch for tobacco cravings, patient refused - NICOLE with CR 1.5 - has resolved, continue to monitor renal panel - Hematuria - recheck urine on admission - Weight bearing status => WBAT with full range of motion, quad isometrics but no straight leg raises or active abduction - Wound care => leave dressing intact, may shower, may remove optifoam dressing in 7 - 10 days, leave prineo tape stripe for 2-3 weeks. - Incision site => The Dressing has small amount of bloody drainage, there is slight edema around the incision, with ecchymosis along the thigh and back of knee - Follow up appointment with Dr. Lima in 2-3 weeks, call to make an appointment - Acute chest pain - Negative Troponin x 3 and EKG with a regular rate and rhythm, with no abnormal wave form
--- NOTE | 2018-10-06 16:34 | CHAPLAIN ---
Type of Pastoral Visit _x__ Initial Visit ___ Follow-up Visit ___ On-call Visit ___ General Patient Visit ___ Spiritual Assessment ___ Family Conference ___ Bereavement ___ Rapid Response ___ Code Blue ___ Other (describe below) Pastoral Care Referral From _x__ Patient ___ Family ___ Nurse ___ Physician ___ Drawing In Machine Tender Helper ___ Director Of Business Systems ___ Other (describe below) Sacrament/Intervention _x__ Active listening ___ Anointing ___ Cheondoism ___ Bereavement ___ Communion ___ Mirian exploration ___ ___ Life review ___ Prayer ___ Reconciliation ___ Sacrament of Sick _x__ Supportive presence ___ Wedding ___ Other (describe below) Pastoral Comments
[2018-10-06 21:14] VITALS: BP 129/67; PULSE 82; RESP 16; TEMP 36.7; O2SAT 97
[2018-10-06 22:00] VITALS: PULSE 82; RESP 16; O2SAT 97
--- NOTE | 2018-10-07 02:48 | NURSING ---
Reviewed and agree with ELECTRICAL AND INSTRUMENT TECHNICIAN documentation and FIMS charting.
[2018-10-07] MEDS: Acetaminophen 500 MG Tablet 1000 MG PO ×3 (05:32→20:29)
[2018-10-07 06:56] VITALS: BP 120/70; PULSE 72; RESP 18; TEMP 36.4; O2SAT 93
[2018-10-07 07:00] VITALS: BP 120/70; PULSE 72; RESP 18; TEMP 36.4; O2SAT 93
[2018-10-07] MEDS: Aspirin E.C. 81 MG Tablet PO (08:34)
[2018-10-07] MEDS: oxyCODONE 5 MG Tablet PO ×4 (08:35→22:55)
[2018-10-07 11:20] VITALS: BP 119/72; PULSE 69
[2018-10-07] MEDS: Polyethylene Glycol 3350 17 GM PACKET PO ×2 (11:21→20:28)
[2018-10-07] MEDS: Ascorbic Acid 500 MG Tablet 1000 MG PO (11:21)
[2018-10-07] MEDS: Senna/Docusate Sodium 1 Tablet 2 TABLET PO ×2 (11:21→20:28)
[2018-10-07] MEDS: BACITRACIN 15 GM Tube 1 APPLIC TOPICAL ×2 (11:26→20:30)
--- NOTE | 2018-10-07 11:58 | VDLE_ITS ---
Reason For Study: LEG SWELLING RIGHT LEFT GSV is normal. GSV is normal. CFV is compressible, spontaneous, phasic, CFV is compressible, spontaneous, phasic, competent and demonstrates normal competent, and demonstrates normal augmentation. augmentation. FV is compressible, spontaneous, phasic, FV is compressible, spontaneous, phasic, competent and demonstrates normal competent and demonstrates normal augmentation. augmentation. Acute deep vein thrombosis is noted in the POP V is compressible, spontaneous, phasic, right popliteal vein. competent and demonstrates normal Acute deep vein thrombosis is noted in the augmentation. right peroneal vein. T/P Trunk is compressible. Acute deep vein thrombosis is noted in the PTV is compressible. right posterior tibial vein. LT PerV is compressible. Acute deep vein thrombosis noted in the Acute deep vein thrombosis noted in the Gastroc veins. Gastroc veins. Procedure Exam performed portable in patient room. A preliminary report was called and/or faxed to RU nurse. <> Interpretation Summary Acute deep vein thrombosis is noted in the right popliteal vein. Acute deep vein thrombosis is noted in the right tibio-peroneal trunk. Acute deep vein thrombosis is noted in the right peroneal vein. Acute deep vein thrombosis is noted in the right posterior tibial vein. Acute deep vein thrombosis is noted in the right gastrocnemius vein. The right common femoral vein and femoral vein are patent, compressible, and competent. Acute deep vein thrombosis is noted in the left gastrocnemius vein. The remainder of the left lower extremity deep venous system is patent and compressible. The proximal left lower extremity deep venous system is competent. The great saphenous veins are patent and compressible bilaterally. Ordering Physician: Martín Cagle Referring Physician: Pepito Angelo Performed By: Lisa Fernandes RVT
--- NOTE | 2018-10-07 11:59 | PCM.PROGNOTE ---
Patient Problems: Active and Suspected Problems (Last Reviewed 09/11/18 @ 12:04 by Latha Hardy) Closed right hip fracture (Acute) Subjective: Chief complaint: Follow-up of the consultation for medical management after admission to inpatient rehab. Patient seen and examined. No acute events overnight. Nursing staff reports that he has been having increasing bilateral leg swelling, more on the right leg. Patient reported mild right calf pain upon ambulation. Right hip pain is well managed and controlled. He does have 2 large blisters with serous fluid on the right foot. He denies chest pain or shortness of breath. His vital signs are stable. - Physical Exam General: Alert, Oriented x3, Cooperative, No apparent distress HEENT: Atraumatic, PERRLA, EOMI, Normocephalic Oral: Moist Mucosa, No Gingival or Mucosal Lesions/ Ulcerations Neck: Supple, No JVD, Negative Carotid Bruits, Trachea Midline, Thyroid Normal Size and Texture Lungs: Clear to auscultation, No rhonchi, No wheeze, No rales, Diminished Cardiovascular: Regular rate, Regular Rhythm, Normal S1, Normal S2, PMI Normal Abdomen: Bowel Sounds Present, Soft, Non Tender, Non-Distended, No Hepato-splenomegaly Extremities: No clubbing, No cyanosis, Edema - ++ Edema. 2 blisters on the right foot. Skin: No rashes, No breakdown Lymphatic: No Cervical, Supraclavicular, or Inguinal Adenopathy Neurological: Cranial nerves II-XII grossly intact, Motor Exam 5/5 strength throughout Psych/Mental Status: Normal Affect, Appropriate Vital Signs Temp Pulse Resp BP Pulse Ox 97.6 F L 69 18 119/72 93 10/07/18 07:00 10/07/18 11:20 10/07/18 07:00 10/07/18 11:20 10/07/18 07:00 Oxygen Flow Rate (L/min) 3 Oxygen Delivery Method Room Air Weight: 209 lb 7.026 oz Body Mass Index (BMI) 30.9 Intake and Output for Last 24 Hours 10/05/18 10/06/18 10/07/18 23:59 23:59 23:59 Intake Total 400 / 400 840 / 840 360 / 360 Output Total 775 / 775 Balance -375 / -375 840 / 840 360 / 360 Medical Necessity - Tobacco Use Smoking Status: Current every day smoker Tobacco Use: Cigars, Chew Assessment/Plan All Active Problems (Last Reviewed 09/11/18 @ 12:04 by Latha Hardy) Closed right hip fracture (Acute) This is a 67 years old male patient admitted to inpatient rehab unit after he suffered a closed right hip fracture due to mechanical fall and I am seeing this patient for follow-up after consultation for medical management. #1 acute traumatic closed right hip fracture: Status post open reduction internal fixation. Right hip pain is well managed. Patient is doing well with physical therapy. His vital signs are stable. His routine blood work from October 05, 2018 reviewed, was remarkable for hemoglobin of 10.2 g/dL, otherwise normal. He is on fentanyl patch and OxyIR as needed for pain. Plan to continue PT OT according to rehab team. #2 anemia: With unknown baseline hemoglobin. Probably due to blood loss during surgery. Hemoglobin is 10.2 g/dL. No evidence of active bleeding. No indication for transfusion. He is asymptomatic. #3 bilateral leg swelling: Both legs are swollen, more on the right leg. Acute DVT is in the differential diagnosis. Patient was on HCTZ because held for the last week. Plan: Resume HCTZ, bilateral venous Doppler of both legs. #4 hypertension: Blood pressure stable, will resume HCTZ, continue losartan, change holding parameters to if systolic blood pressure less than 100. #5 DVT prophylaxis: He is on aspirin twice daily. This note was generated with [employer] dictation software. It may contain incorrect words, spelling, and punctuation that were not noted in checking the note before signing. Code Visit Inpatient E&M: 27288 Subs Hosp L2
[2018-10-07] MEDS: hydroCHLOROthiazide 12.5mg 12.5 MG PO (12:22)
--- NOTE | 2018-10-07 16:06 | CHAPLAIN ---
patient was sleeping but talked with his fiancee; pt had requested address of local agency and I gave information to the francinee;
[2018-10-07] MEDS: Enoxaparin 100 MG/ML Syringe 90 MG SC (16:26)
[2018-10-07 20:23] VITALS: BP 124/64; PULSE 70; RESP 16; TEMP 36.8; O2SAT 98
[2018-10-07] MEDS: APIXABAN 5 MG TABLET 10 MG PO (20:27)
--- NOTE | 2018-10-07 23:22 | NURSING ---
dressing to R foot changed x2 this pm. ABD noted to have moderate to large amount of serous drainage. cleansed and new dressing applied. pt tolerated well. PRN bacitracin used.
--- NOTE | 2018-10-08 05:26 | NURSING ---
Reviewed and agree with LPNs fims and handoff
[2018-10-08] MEDS: Acetaminophen 500 MG Tablet 1000 MG PO ×3 (06:37→20:19)
[2018-10-08 06:38] VITALS: O2SAT 98
[2018-10-08 07:00] VITALS: PULSE 93; RESP 18; TEMP 36.8; O2SAT 94
[2018-10-08] MEDS: oxyCODONE 5 MG Tablet PO ×2 (08:08→12:49)
[2018-10-08] MEDS: Polyethylene Glycol 3350 17 GM PACKET PO ×2 (08:08→20:19)
[2018-10-08] MEDS: Ascorbic Acid 500 MG Tablet 1000 MG PO (08:09)
[2018-10-08] MEDS: APIXABAN 5 MG TABLET 10 MG PO ×2 (08:10→20:19)
[2018-10-08] MEDS: Senna/Docusate Sodium 1 Tablet 2 TABLET PO ×2 (08:11→20:19)
[2018-10-08] MEDS: BACITRACIN 15 GM Tube 1 APPLIC TOPICAL (08:33)
[2018-10-08 10:55] VITALS: BP 113/73; PULSE 69
[2018-10-08] MEDS: hydroCHLOROthiazide 12.5mg 12.5 MG PO (10:58)
[2018-10-08 20:37] VITALS: BP 138/77; PULSE 76; RESP 18; TEMP 36.7; O2SAT 95
--- NOTE | 2018-10-08 20:50 | NURSING ---
upon doing hs assessment, this nurse noted redness to medial aspect of pts right chung and redness noted medial to rt hip incision. skin was warm to the touch. increased edema noted to rt leg over the past 2 days. less edema noted at this hs. edema graded at 2+. pt states his skin feels tight and he is going back and forth between hot and cold. temp taken again at this time. oral temp noted to be 98.5 degrees. will continue to monitor for signs and symptoms of infection.
--- NOTE | 2018-10-08 21:00 | NURSING ---
FIM score of 6 Modified Independent given with comment of uses urinal, staff to empty. FIM meant to be 5 Supervision/Set Up with the comment of uses urinal, staff to empty.
[2018-10-09] MEDS: oxyCODONE 5 MG Tablet PO ×3 (02:56→17:58)
--- NOTE | 2018-10-09 04:08 | NURSING ---
Reviewed and agree with LPNs fims and handoff
[2018-10-09] MEDS: Acetaminophen 500 MG Tablet 1000 MG PO ×3 (05:56→21:53)
[2018-10-09 07:59] VITALS: BP 118/67; PULSE 75; RESP 16; TEMP 36.8; O2SAT 95
[2018-10-09] MEDS: Senna/Docusate Sodium 1 Tablet 2 TABLET PO (08:50)
[2018-10-09] MEDS: Ascorbic Acid 500 MG Tablet 1000 MG PO (08:50)
[2018-10-09] MEDS: hydroCHLOROthiazide 12.5mg 12.5 MG PO (08:50)
[2018-10-09] MEDS: APIXABAN 5 MG TABLET 10 MG PO ×2 (08:50→21:59)
--- NOTE | 2018-10-09 12:07 | NURSING ---
Staff walked pt 1 lap in hallway, pt tolerated well
[2018-10-09 21:50] VITALS: PULSE 70; RESP 16; O2SAT 93
[2018-10-09 22:00] VITALS: BP 118/79; PULSE 70; RESP 18; TEMP 36.9; O2SAT 93
[2018-10-10] MEDS: oxyCODONE 5 MG Tablet PO ×5 (00:04→23:06)
--- NOTE | 2018-10-10 03:30 | NURSING ---
Reviewed and agree with LPNs fims and handoff
[2018-10-10] MEDS: Acetaminophen 500 MG Tablet 1000 MG PO ×3 (05:36→22:47)
[2018-10-10 08:49] VITALS: BP 102/58; PULSE 71; RESP 18; TEMP 36.8; O2SAT 94
--- NOTE | 2018-10-10 12:10 | CASEMGMT ---
Team meeting held today with pt and significant other present. Pt is continuing to progress in therapy. No d/c date set at this time. Pt made aware that Medicare has approved 16 days with d/c on or before 10/19/18. Pt expresses understanding. Will continue with treatment plan at this time and reteam next week. ZION Hirsch
[2018-10-10] MEDS: APIXABAN 5 MG TABLET 10 MG PO ×2 (12:22→22:47)
[2018-10-10] MEDS: Ascorbic Acid 500 MG Tablet 1000 MG PO (12:22)
[2018-10-10] MEDS: Pantoprazole Sodium 20 MG Tablet PO (12:24)
[2018-10-10] MEDS: Furosemide 20 MG Tablet PO (12:25)
--- NOTE | 2018-10-10 14:29 | PCM.PN.NEU ---
Patient Problems: Active and Suspected Problems (Last Reviewed 09/11/18 @ 12:04 by Latha Hardy) Closed right hip fracture (Acute) Subjective: Staffed in team meeting. Family is at bedside, questions answered. With Physical therapy, he is contact guard for transfers, to get in and out of the bed he is minimal assist to moderate assist. He has gone up 3 steps using 2 hand rails, with a light hand to assist him. He has walked greater [id number] feet using a walker. With Occupational therapy he is able to do his own personal care, he is stand by assist for going into the bath room and a light hand for getting into the shower. He does need help with putting his socks on his feet 2/2 swelling in his feet. With Nursing, blood pressure has been low and his BP medication has been held for the last week causing retention of fluid, will start on low dose of Lasix and change hold parameters on BP meds to hold for less than 90 SBP. Doppler of bilateral lower extremity showed extents DVTs, started on Eliquis 10mg BID x 7 days then 5mg BID for the next 3 to 6 months, consult Hematology, Vascular surgery and obtain anticoagulation studies. Will re-team again next week if he is still in the unit. - Physical Exam General: Alert, Oriented x3, Cooperative HEENT: Atraumatic, PERRLA, EOMI, Normocephalic Neck: Supple, No JVD, Negative Carotid Bruits Lungs: Clear to auscultation, Normal air movement Cardiovascular: Regular rate, No murmurs Abdomen: Bowel Sounds Present, Soft, Non Tender Extremities: No edema, Capillary Refill Less than 3 Seconds Skin: No rashes, No breakdown Musculoskeletal: No Tenderness to Palpation of Joints or Extremities Neurological: Cranial nerves II-XII grossly intact Psych/Mental Status: Normal Affect, Appropriate, Alert and oriented to time, place, person, mood and affect Vital Signs Temp Pulse Resp BP Pulse Ox 98.2 F 71 18 102/58 L 94 10/10/18 08:49 10/10/18 08:49 10/10/18 08:49 10/10/18 08:49 10/10/18 08:49 Oxygen Flow Rate (L/min) 3 Oxygen Delivery Method Room Air Weight: 95 kg Body Mass Index (BMI) 30.9 Intake and Output for Last 24 Hours 10/08/18 10/09/18 10/10/18 23:59 23:59 23:59 Intake Total 720 / 720 240 / 240 720 / 720 Balance 720 / 720 240 / 240 720 / 720 Laboratory Tests Past 24 Hrs 10/10/18 10:00 Factor VIII Activity Pending von Willebrand Comment Pending Intrinsic Factor Ab Pending Factor II DNA Analysis Pending Active Medications Acetaminophen (Tylenol) 1,000 mg PO TID [facility] Last Admin: 10/10/18 05:36 Dose: 1,000 mg Apixaban (Eliquis) 10 mg PO BID [facility] Stop: 10/14/18 22:01 Last Admin: 10/10/18 12:22 Dose: 10 mg Apixaban (Eliquis) 5 mg PO BID [facility] Ascorbic Acid (Vitamin C) 1,000 mg PO DAILY [facility] Last Admin: 10/10/18 12:22 Dose: 1,000 mg Bacitracin (Bacitracin Ointment) 1 applic TOPICAL BID PRN; Protocol PRN Reason: If blister break apply Last Admin: 10/08/18 08:33 Dose: 1 applicatio Bisacodyl (Dulcolax) 10 mg RECTAL .PRN X 1 PRN PRN Reason: Constipation Calcium Carbonate (Tums) 1,000 mg PO Q4H PRN PRN PRN Reason: Gas Cholecalciferol (Vitamin D) 1,000 unit PO DAILY [facility] Last Admin: 10/10/18 12:22 Dose: 1,000 unit Fentanyl (Duragesic Patch) 12 mcg TRANSDERM. Q3D [facility] Last Admin: 10/09/18 13:06 Dose: 12 mcg Furosemide (Lasix) 20 mg PO DAILY [facility] Last Admin: 10/10/18 12:25 Dose: 20 mg Magnesium Hydroxide (Milk Of Magnesia) 30 ml PO .PRN X 1 PRN PRN Reason: Constipation Oxycodone HCl (Oxyir) 5 - 10 mg PO Q4H PRN PRN PRN Reason: PAIN Last Admin: 10/10/18 09:53 Dose: 10 mg Pantoprazole Sodium (Protonix) 20 mg PO DAILY [facility] Last Admin: 10/10/18 12:24 Dose: 20 mg Polyethylene Glycol (Miralax) 17 gm PO BID [facility] Last Admin: 10/10/18 12:23 Dose: Not Given Senna/Docusate Sodium (Senokot-S, Angela-Colace) 2 tablet PO BID [facility] Last Admin: 10/10/18 12:23 Dose: Not Given Medical Necessity - Tobacco Use Smoking Status: Current every day smoker Tobacco Use: Cigars, Chew Assessment/Plan All Active Problems (Last Reviewed 09/11/18 @ 12:04 by Latha Hardy) Closed right hip fracture (Acute) Debility status post Right ORIF with IM nailing. Goal of rehab is anabaptism of prior level of functional independence. Plan: - Physical therapy for gait and balance - Occupational Therapy for ADLs - Speech therapy - As needed analgesics - Bowel protocol - DVT prophylaxis: SCDs, ASA 81 mg BID x i month, per Orthopedics team, - Hypertension: Stable with good control, continue home dose of Losartan - HCTZ - Post op anemia, (did not require blood transfusion) - resolved Hgb on discharge from [facility] was 11.6. - B/L TKA Incision site C/D/I, => healing nicely, steri strips are beginning to fall off, no redness or warmth noted around incision area. - Tobacco dependence counseled on cessation, offered nicotine patch for tobacco cravings, patient refused - NICOLE with CR 1.5 - has resolved, continue to monitor renal panel - Hematuria - recheck urine on admission - Weight bearing status => WBAT with full range of motion, quad isometrics but no straight leg raises or active abduction - Wound care => leave dressing intact, may shower, may remove opti-foam dressing in 7 - 10 days, leave prineo tape stripe for 2-3 weeks. - Incision site => The Dressing has small amount of bloody drainage, there is slight edema around the incision, with ecchymosis along the thigh and back of knee - Follow up appointment with Dr. Lima in 2-3 weeks, call to make an appointment - Acute chest pain - Negative Troponin x 3 and EKG with a regular rate and rhythm, with no abnormal wave form - B/L Doppler of lower extremity show multiple DVTs started on Eliquis dvt dosing. - Consult out to Vascular surgery, Hematology and obtain anticoagulation studies. - Start Lasix 20mg, hold HCTZ for the next three days, will re-evaluate edema and re-start HCTZ.
[2018-10-10 14:36] LABS: Bacteria 0 SEEN /hpf (None Seen); Mucous, Urine 0 SEEN /hpf (<or=2+); Squamous Epithelial Cells - UA 0 SEEN /hpf (0-5)
--- NOTE | 2018-10-10 14:37 | PN.NEURO_ITS ---
Patient Problems: Active and Suspected Problems (Last Reviewed 09/11/18 @ 12:04 by Latha Hardy) Closed right hip fracture (Acute) Subjective: Staffed in team meeting. Family is at bedside, questions answered. With Physical therapy, he is contact guard for transfers, to get in and out of the bed he is minimal assist to moderate assist. He has gone up 3 steps using 2 hand rails, with a light hand to assist him. He has walked greater [id number] feet using a walker. With Occupational therapy he is able to do his own personal care, he is stand by assist for going into the bath room and a light hand for getting into the shower. He does need help with putting his socks on his feet 2/2 swelling in his feet. With Nursing, blood pressure has been low and his BP medication has been held for the last week causing retention of fluid, will start on low dose of Lasix and change hold parameters on BP meds to hold for less than 90 SBP. Doppler of bilateral lower extremity showed extents DVTs, started on Eliquis 10mg BID x 7 days then 5mg BID for the next 3 to 6 months, consult Hematology, Vascular surgery and obtain anticoagulation studies. Will re-team again next week if he is still in the unit. - Physical Exam General: Alert, Oriented x3, Cooperative HEENT: Atraumatic, PERRLA, EOMI, Normocephalic Neck: Supple, No JVD, Negative Carotid Bruits Lungs: Clear to auscultation, Normal air movement Cardiovascular: Regular rate, No murmurs Abdomen: Bowel Sounds Present, Soft, Non Tender Extremities: No edema, Capillary Refill Less than 3 Seconds Skin: No rashes, No breakdown Musculoskeletal: No Tenderness to Palpation of Joints or Extremities Neurological: Cranial nerves II-XII grossly intact Psych/Mental Status: Normal Affect, Appropriate, Alert and oriented to time, place, person, mood and affect Vital Signs Temp Pulse Resp BP Pulse Ox 98.2 F 71 18 102/58 L 94 10/10/18 08:49 10/10/18 08:49 10/10/18 08:49 10/10/18 08:49 10/10/18 08:49 Oxygen Flow Rate (L/min) 3 Oxygen Delivery Method Room Air Weight: 95 kg Body Mass Index (BMI) 30.9 Intake and Output for Last 24 Hours 10/08/18 10/09/18 10/10/18 23:59 23:59 23:59 Intake Total 720 / 720 240 / 240 720 / 720 Balance 720 / 720 240 / 240 720 / 720 Laboratory Tests Past 24 Hrs 10/10/18 10:00 Factor VIII Activity Pending von Willebrand Comment Pending Intrinsic Factor Ab Pending Factor II DNA Analysis Pending Active Medications Acetaminophen (Tylenol) 1,000 mg PO TID [facility] Last Admin: 10/10/18 05:36 Dose: 1,000 mg Apixaban (Eliquis) 10 mg PO BID [facility] Stop: 10/14/18 22:01 Last Admin: 10/10/18 12:22 Dose: 10 mg Apixaban (Eliquis) 5 mg PO BID [facility] Ascorbic Acid (Vitamin C) 1,000 mg PO DAILY [facility] Last Admin: 10/10/18 12:22 Dose: 1,000 mg Bacitracin (Bacitracin Ointment) 1 applic TOPICAL BID PRN; Protocol PRN Reason: If blister break apply Last Admin: 10/08/18 08:33 Dose: 1 applicatio Bisacodyl (Dulcolax) 10 mg RECTAL .PRN X 1 PRN PRN Reason: Constipation Calcium Carbonate (Tums) 1,000 mg PO Q4H PRN PRN PRN Reason: Gas Cholecalciferol (Vitamin D) 1,000 unit PO DAILY [facility] Last Admin: 10/10/18 12:22 Dose: 1,000 unit Fentanyl (Duragesic Patch) 12 mcg TRANSDERM. Q3D [facility] Last Admin: 10/09/18 13:06 Dose: 12 mcg Furosemide (Lasix) 20 mg PO DAILY [facility] Last Admin: 10/10/18 12:25 Dose: 20 mg Magnesium Hydroxide (Milk Of Magnesia) 30 ml PO .PRN X 1 PRN PRN Reason: Constipation Oxycodone HCl (Oxyir) 5 - 10 mg PO Q4H PRN PRN PRN Reason: PAIN Last Admin: 10/10/18 09:53 Dose: 10 mg Pantoprazole Sodium (Protonix) 20 mg PO DAILY [facility] Last Admin: 10/10/18 12:24 Dose: 20 mg Polyethylene Glycol (Miralax) 17 gm PO BID [facility] Last Admin: 10/10/18 12:23 Dose: Not Given Senna/Docusate Sodium (Senokot-S, Angela-Colace) 2 tablet PO BID [facility] Last Admin: 10/10/18 12:23 Dose: Not Given Medical Necessity - Tobacco Use Smoking Status: Current every day smoker Tobacco Use: Cigars, Chew Assessment/Plan All Active Problems (Last Reviewed 09/11/18 @ 12:04 by Latha Hardy) Closed right hip fracture (Acute) Debility status post Right ORIF with IM nailing. Goal of rehab is gnosticist of prior level of functional independence. Plan: - Physical therapy for gait and balance - Occupational Therapy for ADLs - Speech therapy - As needed analgesics - Bowel protocol - DVT prophylaxis: SCDs, ASA 81 mg BID x i month, per Orthopedics team, - Hypertension: Stable with good control, continue home dose of Losartan - HCTZ - Post op anemia, (did not require blood transfusion) - resolved Hgb on discharge from [facility] was 11.6. - B/L TKA Incision site C/D/I, => healing nicely, steri strips are beginning to fall off, no redness or warmth noted around incision area. - Tobacco dependence counseled on cessation, offered nicotine patch for tobacco cravings, patient refused - NICOLE with CR 1.5 - has resolved, continue to monitor renal panel - Hematuria - recheck urine on admission - Weight bearing status => WBAT with full range of motion, quad isometrics but no straight leg raises or active abduction - Wound care => leave dressing intact, may shower, may remove opti-foam dressing in 7 - 10 days, leave prineo tape stripe for 2-3 weeks. - Incision site => The Dressing has small amount of bloody drainage, there is slight edema around the incision, with ecchymosis along the thigh and back of knee - Follow up appointment with Dr. Lima in 2-3 weeks, call to make an appointment - Acute chest pain - Negative Troponin x 3 and EKG with a regular rate and rhythm, with no abnormal wave form - B/L Doppler of lower extremity show multiple DVTs started on Eliquis dvt dosing. - Consult out to Vascular surgery, Hematology and obtain anticoagulation studies. - Start Lasix 20mg, hold HCTZ for the next three days, will re-evaluate edema and re-start HCTZ.
[2018-10-10 14:38] LABS: Color, Urine Yellow (Yellow); Glucose, Dipstick Normal (Normal); Ketone-Dipstick Negative (Negative); Leukocyte Esterase-Dipstick Negative /ul (Negative); Nitrite-Dipstick Negative (Negative); Occult Blood-Urine 50 /ul (Negative); Protein-Dipstick Negative (Negative); Specific Gravity, Urine 1.015 (1.002-1.030); Urine Bilirubin Dipstick Negative (Negative); Urine Clarity Clear (Clear); Urine Urobilinogen 1 mg/dl (Normal)
[2018-10-10 14:48] LABS: Red Blood Cells-Urine 0-5 SEEN /hpf (0-5); White Blood Cells 0-5 SEEN /hpf (0-5)
--- NOTE | 2018-10-10 16:46 | CON.PCM_ITS ---
Subjective Date of Service:: 10/10/18 Chief Complaint: Bilateral DVTs History of Present Illness: Mr. Lennox Mayes is a 67 year old man with a PMH positive for colon polyps, seasonal allergies and hypertension, who experienced what he describes as a spontaneous right hip fracture. Subsequently he underwent right hip ORIF on 09/29/18 at an outside facility. Patient does not believe he received prophylactic Lovenox. Developed BLE edema, R>L and dopplers obtained 10/07/18 at [facility] which revealed DVT within the left gastroc vein and several DVTs in the RLE up to the level of the popliteal vein. It appears he received 1 dose of Lovenox on 10/07/18 and began Eliquis today. States all of his routine screenings are up to date. H/o colon polyps, undergoes cscope every [address] Valle. Per patient self report, he is due in 2019. He specifically denies CP, SOB, any changes in his bowel habits, abd pain, melena/hematochezia. Upon further assessment, shares he has received Kenolog injections every 6-8 weeks for the last 6 years in the management of his seasonal allergies. Never underwent bone density exam. Smokes 2 cigars/day x 30+ years. No family history of hematologic disorders or malignancies, although father with history positive for colon polyps as well. Past Medical History: Chronic Problems (Last Reviewed 09/11/18 @ 12:04 by Latha Hardy) Hypertension (Chronic) Past Medical/Surgical History: Past Medical History - Most Recent Inpatient Visit Past Medical History Start: 10/04/18 13:18 Text: Status: Complete Freq: ONCE Protocol: Document 10/04/18 13:18 BL (Rec: 10/04/18 16:47 [id number]) BMI Required to complete PMH What is Patient's BMI 30.9 Past Medical History Unable History Recalled No Query Text:Pt Unable/Family Not Present Neurologic Medical History Hx Stroke/TIA No Hx Dementia/Alzheimer's No Hx Parkinson's Disease No Hx Seizures No Hx Multiple Sclerosis No Hx Migraines No Cardiac Medical History VTE Present on Admission No Hx of Deep Vein Thrombosis/VTE/PE No Hx Hypertension Yes Hx Chest Pain/Angina No Hx Heart Attack No Hx Cardiac Surgery/Stents/Etc. No Hx Heart Failure No Hx Pacemaker/AICD No Hx Irregular Heartbeat and/or Afib No Hx Anticoagulant Therapy Yes Query Text:(Coumadin, Aspirin, Plavix, Xarelto, etc.) Hx Pain in Legs when Walking/Leg Cramps No Respiratory Medical History Hx COPD No Hx Emphysema No Smoking Status Current every day smoker Tobacco Use Cigars Chew Hx Tobacco Use in last 12 months Yes Sent to [facility] Yes Hx of Pipe Smoking No Hx of Cigar Smoking Yes Hx Sleep Apnea No Do you snore loudly (louder than talking No or can be heard through closed doors)? Do you often feel tired/ fatigued/ No sleepy during daytime? Has anyone observed you stop breathing No during sleep? STOP Results Negative GI Medical History Hx Ulcer No Hx Hepatitis No Hx Cirrhosis No Hx GI Bleed No Hx Unplanned Weight Loss No Genitourinary Medical History Indwelling Catheter in Place on Arrival/ No Admission Hx Renal Disease No Hx Dialysis No Musculoskeletal History Hx Arthritis No Hx Rheumatoid Arthritis No Endocrine Medical History Hx Diabetes No Hx Thyroid Disease No Hematologic Medical History Hx of Blood Transfusion No Hx of Transfusion in last 3 Months No Ever experience any problems with No transfusion(s)? Hx of Preganancy in last 3 Months N/A Nurse Filling Out Transfusion & BLINHOSS Questions: Date: 10/04/18 Time: 16:46 Psycho/Social Medical History Hx Depression No Hx Anxiety No Hx Behavior Disorder No Hx Alcohol Use No Hx Substance Use No Other Medical History Hx Blood Disorders No Hx Anemia No Hx Cancer No Hx Drug Resistant Organism No Wound/Pressure Injury Present on Arrival No /Admission Query Text:If yes, chart assessment in Shift/Clinical Findings Central Line/PICC/VAD Present on Arrival No /Admission Antibiotics within last 7 days? No Methicillin Resistant Staphylococcus aureus Screening Active MRSA No Past Medical History (Last Reviewed 09/11/18 @ 12:04 by Latha Hardy) Back pain (Acute) Hayfever (Acute) HTN (hypertension) (Chronic) Paternal Family History: No pertinent history - Social History Lives: Spouse/ Significant Other Smoking Status: Current every day smoker Tobacco Use: Cigars, Chew Alcohol: Occasional Drugs: None Allergies/Adverse Reactions: Allergy/AdvReac Type Severity Reaction Status Date / Time No Known Allergies Allergy Verified 09/11/18 12:03 Review of Systems Constitutional:: Denies: Fever, Sweats, Weight loss, Appetite change, Chills Cardiovascular:: Denies: Chest pain, Palpitations, Dyspnea on exertion, Orthopnea, PND, Shortness of breath Respiratory: Denies: Cough, Hemoptysis, Shortness of Breath, Wheezing Gastrointestinal:: Denies: Abdominal pain, Nausea, Vomiting, Diarrhea, Constipation, Melena, Hematochezia, Hemorrhoids, Gas/bloating Genitourinary: Denies: Dysuria, Hematuria, 15, Flank pain Musculoskeletal:: Denies: Back pain, Myalgia, Arthralgia Skin: Denies: Rash, Skin Changes, Wounds Neurological:: Denies: Headache, Dizziness, Visual changes, Tinnitus, Hearing loss Psychiatric: Denies: Anxiety, Depression, Homicidal Ideations, Suicidal Ideations Vital Signs Height 5 ft 9 in Weight: 209 lb 7.026 oz Weight in Pounds 209.4 lbs Pulse Ox 94 Temperature 98.2 F Pulse Rate 71 Respiratory Rate 18 Blood Pressure 102/58 Blood Pressure Position Sitting - Physical Exam General: Alert, Oriented x3, No apparent distress HEENT: Atraumatic, Normocephalic Oropharynx:: Negative for: Dry mucosa, Ulcerated lesions Neck:: Supple, Trachea midline. Negative for: JVD, bilateral Cardiac:: Regular rate, Regular rhythm, Normal S1, Normal S2. Negative for: Murmur Lungs: Clear to auscultation, Excusion symmetrical. Negative for: Rhonchi, Wheezes Abdomen:: Bowel sounds x 4, Soft, Non-tender, Non-distended. Negative for: Hepatosplenomegaly Extremities:: Edema - pitting BLE, R>L, tender to palpation, feet wrapped with gauze. Negative for: Cyanosis Neurological: Neuro grossly intact Skin:: Negative for: Lesions, Rash, Petechiae, Ecchymosis Psychiatric:: Appropriate affect, Euthymic Lymphatics:: Negative for: Cervical lymphadenopathy, Supraclavicular lymphadenopathy, Axillary lymphadenopathy Laboratory Data: Laboratory Tests 10/10/18 Range/Units 13:00 Urine Color Yellow (Yellow) Urine Clarity Clear (Clear) Urine pH 6.0 (5.0 - 8.0) Ur Specific [place] 1.015 (1.002-1.030) Urine Protein Negative (Negative) mg/dl Urine Glucose (UA) Normal (Normal) mg/dl Urine Ketones Negative (Negative) mg/dl Urine Occult Blood 50 H (Negative) /ul Urine Nitrite Negative (Negative) Urine Bilirubin Negative (Negative) mg/dL Urine Urobilinogen 1 H (Normal) mg/dl Ur Leukocyte Esterase Negative (Negative) /ul Urine RBC 0-5 SEEN (0-5) /hpf Urine WBC 0-5 SEEN (0-5) /hpf Ur Squamous Epith Cells 0 SEEN (0-5) /hpf Urine Bacteria 0 SEEN (None Seen) /hpf Urine Mucus 0 SEEN (<or=2+) /hpf Assessment and Plan 67 year old man with PMH positive for hypertension, colon polyps and seasonal allergies admitted to rehabilitation s/p right hip ORIF subsequent to spontaneous fracture. Found to have bilateral DVTs. 1. Bilateral DVTs- clearly provoked in the context of immediate post operative period, right hip fx repair. Began Eliquis today per primary team. It appears PT/PTT, CBC, Factor VIII and von Willebrand has already been drawn. Advise to continue DOAC, Eliquis for a minimum duration of 3 months. 2. Colon polyps- Strongly advised him to maintain close follow up with Dr. Valle for colonoscopies as recommended. 3. Anemia- as evidenced by Hgb 10.2 a result of recent blood loss associated with joint surgery. Asymptomatic. Would not add PO iron at this time, given his c/o severe constipation. 4. Tobacco use- Counseled against. Is disinterested in quitting at the present time. Does not meet criteria for lung ca screening CT. Follow up with Dr. Valenzuela at [facility] upon discharge. Leslie Gaitan, LISANDRA, DAIRY PROCESSING EQUIPMENT OPERATOR, AOCNP Medications: Prescriptions This Visit Medication Instructions Recorded Ascorbic Acid [C-1000] 1,000 mg PO DAILY 10/04/18 Cholecalciferol (VIT D3) [Vitamin 1,000 unit PO DAILY 10/04/18 D] Losartan/Hydrochlorothiazide 1 each PO DAILY 10/04/18 [Losartan-Hctz 50-12.5 mg Tab] Oxycodone [Oxyir] 5 - 10 mg PO Q4H PRN PRN 10/04/18 Medications Added to Medication List This Visit Category Date Time Status Apixaban [Eliquis] Med 10/14/18 22:00 Active 5 mg PO BID Calcium Carbonate [Tums] Med 10/10/18 10:24 Active 1,000 mg PO Q4H PRN PRN Furosemide [Lasix] Med 10/11/18 10:00 Active 20 mg PO DAILY Pantoprazole Sodium [Protonix] Med 10/10/18 11:00 Active 20 mg PO DAILY Primary Care Provider: Shun Estrella Referring Provider: Pepito Angelo MD - Problem List (1) DVT, bilateral lower limbs Status: Acute Qualifiers: Affected thrombotic vein of extremity: popliteal Chronicity: acute Qualified Code(s): I82.433 - Acute embolism and thrombosis of popliteal vein, bilateral (2) Anemia Status: Acute Qualifiers: Other causes of anemia: acute posthemorrhagic
[2018-10-10 19:16] VITALS: BP 132/68; PULSE 71; RESP 18; TEMP 36.6; O2SAT 94
[2018-10-10 22:00] VITALS: PULSE 71; RESP 16; O2SAT 94
--- NOTE | 2018-10-10 23:14 | NURSING ---
clinical findings completed at 2200, pt denied any pain at this time, but stated that he doesn't understand what was going on and that he felt odd, but could not describe what felt odd or elaborate the on the feeling. pt requested to ambulate in the room and reported that his pain increased with ambulation. pt refused stool softners and was given his tylenol and eliquis as ordered and pt kept on asking staff what he was taking, what were the pink pills and what were the white pills. pt encouraged to use the polar care for pain and help with the swelling and pt was agreeable for this. pt later called out for oxyir to be given d/t his pain was a 5 out 10 on pain scale and when pt questioned why he was only given one , staff explained that when rating his pain a 5 that he was only to receive one oxyir according to the pain scale on the order. pt had just received 2 tylenol es that is ordered routinely.
[2018-10-11] MEDS: BACITRACIN 15 GM Tube 1 APPLIC TOPICAL ×2 (02:59→19:03)
[2018-10-11] MEDS: Acetaminophen 500 MG Tablet 1000 MG PO ×3 (05:47→22:23)
--- NOTE | 2018-10-11 06:18 | NURSING ---
agree w fish and game warden's handoff
[2018-10-11 07:35] VITALS: BP 124/65; PULSE 64; RESP 16; TEMP 36.6; O2SAT 98
[2018-10-11] MEDS: Pantoprazole Sodium 20 MG Tablet PO (08:16)
[2018-10-11] MEDS: Ascorbic Acid 500 MG Tablet 1000 MG PO (08:16)
[2018-10-11] MEDS: Senna/Docusate Sodium 1 Tablet 2 TABLET PO ×2 (08:16→22:23)
[2018-10-11] MEDS: Furosemide 20 MG Tablet PO (08:16)
[2018-10-11] MEDS: APIXABAN 5 MG TABLET 10 MG PO ×2 (08:17→22:23)
[2018-10-11] MEDS: oxyCODONE 5 MG Tablet PO ×3 (08:17→18:19)
--- NOTE | 2018-10-11 08:58 | PCM.PN.NEU ---
Patient Problems: Active and Suspected Problems (Last Reviewed 09/11/18 @ 12:04 by Latha Hardy) DVT, bilateral lower limbs (Acute) Anemia (Acute) Closed right hip fracture (Acute) Subjective: Patient seen and examined. No new complaints, tolerating therapy. States he slept good last night. No issues with GI/. - Physical Exam General: Alert, Oriented x3, Cooperative HEENT: Atraumatic, PERRLA, EOMI, Normocephalic Neck: Supple, No JVD, Negative Carotid Bruits Lungs: Clear to auscultation, Normal air movement Cardiovascular: Regular rate, No murmurs Abdomen: Bowel Sounds Present, Soft, Non Tender Extremities: No edema, Capillary Refill Less than 3 Seconds Skin: No rashes, No breakdown Musculoskeletal: No Tenderness to Palpation of Joints or Extremities Neurological: Cranial nerves II-XII grossly intact Psych/Mental Status: Normal Affect, Appropriate, Alert and oriented to time, place, person, mood and affect Vital Signs Temp Pulse Resp BP Pulse Ox 97.8 F 64 16 124/65 H 98 10/11/18 07:35 10/11/18 07:35 10/11/18 07:35 10/11/18 07:35 10/11/18 07:35 Oxygen Flow Rate (L/min) 3 Oxygen Delivery Method Room Air Weight: 95 kg Body Mass Index (BMI) 30.9 Intake and Output for Last 24 Hours 10/09/18 10/10/18 10/11/18 23:59 23:59 23:59 Intake Total 240 / 240 720 / 720 240 / 240 Output Total 200 / 200 Balance 240 / 240 520 / 520 240 / 240 Laboratory Tests Past 24 Hrs 10/10/18 10/10/18 10:00 13:00 Factor VIII Activity Pending von Willebrand Comment Pending Urine Color Yellow Urine Clarity Clear Urine pH 6.0 Ur Specific [place] 1.015 Urine Protein Negative Urine Glucose (UA) Normal Urine Ketones Negative Urine Occult Blood 50 H Urine Nitrite Negative Urine Bilirubin Negative Urine Urobilinogen 1 H Ur Leukocyte Esterase Negative Urine RBC 0-5 SEEN Urine WBC 0-5 SEEN Ur Squamous Epith Cells 0 SEEN Urine Bacteria 0 SEEN Urine Mucus 0 SEEN Intrinsic Factor Ab Pending Factor II DNA Analysis Pending Active Medications Acetaminophen (Tylenol) 1,000 mg PO TID LION Last Admin: 10/11/18 05:47 Dose: 1,000 mg Apixaban (Eliquis) 10 mg PO BID REPLACED BY [facility] Stop: 10/14/18 22:01 Last Admin: 10/11/18 08:17 Dose: 10 mg Apixaban (Eliquis) 5 mg PO BID REPLACED BY [facility] Ascorbic Acid (Vitamin C) 1,000 mg PO DAILY REPLACED BY [facility] Last Admin: 10/11/18 08:16 Dose: 1,000 mg Bacitracin (Bacitracin Ointment) 1 applic TOPICAL BID PRN; Protocol PRN Reason: If blister break apply Last Admin: 10/11/18 02:59 Dose: 1 applicatio Bisacodyl (Dulcolax) 10 mg RECTAL .PRN X 1 PRN PRN Reason: Constipation Calcium Carbonate (Tums) 1,000 mg PO Q4H PRN PRN PRN Reason: Gas Cholecalciferol (Vitamin D) 1,000 unit PO DAILY REPLACED BY [facility] Last Admin: 10/11/18 08:16 Dose: 1,000 unit Fentanyl (Duragesic Patch) 12 mcg TRANSDERM. Q3D REPLACED BY [facility] Last Admin: 10/09/18 13:06 Dose: 12 mcg Furosemide (Lasix) 20 mg PO DAILY REPLACED BY [facility] Last Admin: 10/11/18 08:16 Dose: 20 mg Magnesium Hydroxide (Milk Of Magnesia) 30 ml PO .PRN X 1 PRN PRN Reason: Constipation Oxycodone HCl (Oxyir) 5 - 10 mg PO Q4H PRN PRN PRN Reason: PAIN Last Admin: 10/11/18 08:17 Dose: 10 mg Pantoprazole Sodium (Protonix) 20 mg PO DAILY REPLACED BY [facility] Last Admin: 10/11/18 08:16 Dose: 20 mg Polyethylene Glycol (Miralax) 17 gm PO BID REPLACED BY [facility] Last Admin: 10/11/18 08:19 Dose: Not Given Senna/Docusate Sodium (Senokot-S, Angela-Colace) 2 tablet PO BID REPLACED BY [facility] Last Admin: 10/11/18 08:16 Dose: 2 tablet Medical Necessity - Tobacco Use Smoking Status: Current every day smoker Tobacco Use: Cigars, Chew Assessment/Plan All Active Problems (Last Reviewed 09/11/18 @ 12:04 by Latha Hardy) DVT, bilateral lower limbs (Acute) Anemia (Acute) Closed right hip fracture (Acute) Debility status post Right ORIF with IM nailing. Goal of rehab is church of prior level of functional independence. Plan: - Physical therapy for gait and balance - Occupational Therapy for ADLs - Speech therapy - As needed analgesics - Bowel protocol - DVT prophylaxis: SCDs, ASA 81 mg BID x i month, per Orthopedics team, - Hypertension: Stable with good control, continue home dose of Losartan - HCTZ - Post op anemia, (did not require blood transfusion) - resolved Hgb on discharge from [facility] was 11.6. - B/L TKA Incision site C/D/I, => healing nicely, steri strips are beginning to fall off, no redness or warmth noted around incision area. - Tobacco dependence counseled on cessation, offered nicotine patch for tobacco cravings, patient refused - NIOCLE with CR 1.5 - has resolved, continue to monitor renal panel - Hematuria - recheck urine on admission - Weight bearing status => WBAT with full range of motion, quad isometrics but no straight leg raises or active abduction - Wound care => leave dressing intact, may shower, may remove opti-foam dressing in 7 - 10 days, leave prineo tape stripe for 2-3 weeks. - Incision site => The Dressing has small amount of bloody drainage, there is slight edema around the incision, with ecchymosis along the thigh and back of knee - Follow up appointment with Dr. Lima in 2-3 weeks, call to make an appointment - Acute chest pain - Negative Troponin x 3 and EKG with a regular rate and rhythm, with no abnormal wave form - B/L Doppler of lower extremity show multiple DVTs started on Eliquis dvt dosing. - Consult out to Vascular surgery, Hematology and obtain anticoagulation studies. - Start Lasix 20mg, hold HCTZ for the next three days, will re-evaluate edema and re-start HCTZ.
--- NOTE | 2018-10-11 09:02 | PN.NEURO_ITS ---
Patient Problems: Active and Suspected Problems (Last Reviewed 09/11/18 @ 12:04 by Latha Hardy) DVT, bilateral lower limbs (Acute) Anemia (Acute) Closed right hip fracture (Acute) Subjective: Patient seen and examined. No new complaints, tolerating therapy. States he slept good last night. No issues with GI/. - Physical Exam General: Alert, Oriented x3, Cooperative HEENT: Atraumatic, PERRLA, EOMI, Normocephalic Neck: Supple, No JVD, Negative Carotid Bruits Lungs: Clear to auscultation, Normal air movement Cardiovascular: Regular rate, No murmurs Abdomen: Bowel Sounds Present, Soft, Non Tender Extremities: No edema, Capillary Refill Less than 3 Seconds Skin: No rashes, No breakdown Musculoskeletal: No Tenderness to Palpation of Joints or Extremities Neurological: Cranial nerves II-XII grossly intact Psych/Mental Status: Normal Affect, Appropriate, Alert and oriented to time, place, person, mood and affect Vital Signs Temp Pulse Resp BP Pulse Ox 97.8 F 64 16 124/65 H 98 10/11/18 07:35 10/11/18 07:35 10/11/18 07:35 10/11/18 07:35 10/11/18 07:35 Oxygen Flow Rate (L/min) 3 Oxygen Delivery Method Room Air Weight: 95 kg Body Mass Index (BMI) 30.9 Intake and Output for Last 24 Hours 10/09/18 10/10/18 10/11/18 23:59 23:59 23:59 Intake Total 240 / 240 720 / 720 240 / 240 Output Total 200 / 200 Balance 240 / 240 520 / 520 240 / 240 Laboratory Tests Past 24 Hrs 10/10/18 10/10/18 10:00 13:00 Factor VIII Activity Pending von Willebrand Comment Pending Urine Color Yellow Urine Clarity Clear Urine pH 6.0 Ur Specific [place] 1.015 Urine Protein Negative Urine Glucose (UA) Normal Urine Ketones Negative Urine Occult Blood 50 H Urine Nitrite Negative Urine Bilirubin Negative Urine Urobilinogen 1 H Ur Leukocyte Esterase Negative Urine RBC 0-5 SEEN Urine WBC 0-5 SEEN Ur Squamous Epith Cells 0 SEEN Urine Bacteria 0 SEEN Urine Mucus 0 SEEN Intrinsic Factor Ab Pending Factor II DNA Analysis Pending Active Medications Acetaminophen (Tylenol) 1,000 mg PO TID [facility] Last Admin: 10/11/18 05:47 Dose: 1,000 mg Apixaban (Eliquis) 10 mg PO BID [facility] Stop: 10/14/18 22:01 Last Admin: 10/11/18 08:17 Dose: 10 mg Apixaban (Eliquis) 5 mg PO BID [facility] Ascorbic Acid (Vitamin C) 1,000 mg PO DAILY [facility] Last Admin: 10/11/18 08:16 Dose: 1,000 mg Bacitracin (Bacitracin Ointment) 1 applic TOPICAL BID PRN; Protocol PRN Reason: If blister break apply Last Admin: 10/11/18 02:59 Dose: 1 applicatio Bisacodyl (Dulcolax) 10 mg RECTAL .PRN X 1 PRN PRN Reason: Constipation Calcium Carbonate (Tums) 1,000 mg PO Q4H PRN PRN PRN Reason: Gas Cholecalciferol (Vitamin D) 1,000 unit PO DAILY [facility] Last Admin: 10/11/18 08:16 Dose: 1,000 unit Fentanyl (Duragesic Patch) 12 mcg TRANSDERM. Q3D [facility] Last Admin: 10/09/18 13:06 Dose: 12 mcg Furosemide (Lasix) 20 mg PO DAILY [facility] Last Admin: 10/11/18 08:16 Dose: 20 mg Magnesium Hydroxide (Milk Of Magnesia) 30 ml PO .PRN X 1 PRN PRN Reason: Constipation Oxycodone HCl (Oxyir) 5 - 10 mg PO Q4H PRN PRN PRN Reason: PAIN Last Admin: 10/11/18 08:17 Dose: 10 mg Pantoprazole Sodium (Protonix) 20 mg PO DAILY [facility] Last Admin: 10/11/18 08:16 Dose: 20 mg Polyethylene Glycol (Miralax) 17 gm PO BID [facility] Last Admin: 10/11/18 08:19 Dose: Not Given Senna/Docusate Sodium (Senokot-S, Nagela-Colace) 2 tablet PO BID [facility] Last Admin: 10/11/18 08:16 Dose: 2 tablet Medical Necessity - Tobacco Use Smoking Status: Current every day smoker Tobacco Use: Cigars, Chew Assessment/Plan All Active Problems (Last Reviewed 09/11/18 @ 12:04 by Latha Hardy) DVT, bilateral lower limbs (Acute) Anemia (Acute) Closed right hip fracture (Acute) Debility status post Right ORIF with IM nailing. Goal of rehab is [facility] of prior level of functional independence. Plan: - Physical therapy for gait and balance - Occupational Therapy for ADLs - Speech therapy - As needed analgesics - Bowel protocol - DVT prophylaxis: SCDs, ASA 81 mg BID x i month, per Orthopedics team, - Hypertension: Stable with good control, continue home dose of Losartan - HCTZ - Post op anemia, (did not require blood transfusion) - resolved Hgb on d ischarge from [facility] was 11.6. - B/L TKA Incision site C/D/I, => healing nicely, steri strips are beginning to fall off, no redness or warmth noted around incision area. - Tobacco dependence counseled on cessation, offered nicotine patch for tobacco cravings, patient refused - NICOLE with CR 1.5 - has resolved, continue to monitor renal panel - Hematuria - recheck urine on admission - Weight bearing status => WBAT with full range of motion, quad isometrics but no straight leg raises or active abduction - Wound care => leave dressing intact, may shower, may remove opti-foam dressing in 7 - 10 days, leave prineo tape stripe for 2-3 weeks. - Incision site => The Dressing has small amount of bloody drainage, there is slight edema around the incision, with ecchymosis along the thigh and back of kn ee - Follow up appointment with Dr. Lima in 2-3 weeks, call to make an appointment - Acute chest pain - Negative Troponin x 3 and EKG with a regular rate and rhythm, with no abnormal wave form - B/L Doppler of lower extremity show multiple DVTs started on Eliquis dvt dosing. - Consult out to Vascular surgery, Hematology and obtain anticoagulation studies. - Start Lasix 20mg, hold HCTZ for the next three days, will re-evaluate edema and re-start HCTZ.
--- NOTE | 2018-10-11 15:27 | CM.ED ---
Social Work Note Made aware that pt does not have prescription coverage and will be discharges on an anti-coagulant. Educated to and provided information on the Medicare enrollment period and that this needed to be submitted by 10/24/18 for him to have Part D (Rx coverage). States that his significant other will be in this date. This justowriter operator left work number in the room for significant other to contact if she had further questions. No further needs identified at this time. Yamila Dean, HVAC LEAD, WOOD TECHNOLOGIST
--- NOTE | 2018-10-11 16:40 | PN_ITS ---
Patient Problems: Active and Suspected Problems (Last Reviewed 09/11/18 @ 12:04 by Latha Hardy) DVT, bilateral lower limbs (Acute) Anemia (Acute) Closed right hip fracture (Acute) Subjective: Patient with currently evaluate per Oncology/Hematology ongoing secondary to severity of BL LE clots following recent hip fracture as well as s/p evaluation per Vascular with no interventions aside anticoagulation planned. There are labs pending for anticoagulation work-up which was discussed with patient. He notes ongoing BL LE edema, worse RLE still, notes blisters to RLE anterior ankle and lateral ankle, recently anterior popped and has started to drain serous fluid. Also notes bed uncomfortable and slept in chair the evening prior. Patient denies fevers, chills, nausea, emesis, abdominal pain, chest pain or dyspnea. Objective: Physical Examination: General: awake, alert, oriented x 3 and cooperative, seated upright in bedside chair, in no apparent distress. Skin: normal color, turgor, no icterus, cyanosis except notable RLE mild redness and large anterior ankle and lateral blisters, fluid filled, anterior ankle blister draining, s/p hip fracture w/ repair. HEENT: AT/NC, EOMI, PERRLA, MMM. Lungs: CTA bilaterally, moderate effort, mild decrease BL bases, no rales, ronchi or wheezing. Heart: Regular rate and rhythm; no gallop, rub audible. Abdomen: soft, obese, NTTP, ND, normal BS. Extremities: no cyanosis, clubbing, BL LE pedal to distal chung 2-3+ edema. Neurological: patient awake, alert, oriented x 3; cognitive function intact; pupils equally reactive to light and accomodation; cranial nerves II-XII grossly normal, moving all 4 extremities, no focal deficits, strength improving, moderately to severely globally decreased. Psychiatric: affect appears normal, no acute evidence of depressive or anxiety feelings. Vitals/I&O's: Vital Signs Temp Pulse Resp BP Pulse Ox 97.8 F 64 16 124/65 H 98 10/11/18 07:35 10/11/18 07:35 10/11/18 07:35 10/11/18 07:35 10/11/18 07:35 Oxygen Flow Rate (L/min) 3 Oxygen Delivery Method Room Air Weight: 209 lb 7.026 oz Body Mass Index (BMI) 30.9 Intake and Output for Last 24 Hours 10/09/18 10/10/18 10/11/18 23:59 23:59 23:59 Intake Total 240 / 240 720 / 720 480 / 480 Output Total 200 / 200 Balance 240 / 240 520 / 520 480 / 480 Current Medications Acetaminophen (Tylenol) 1,000 mg PO TID [facility] Last Admin: 10/11/18 13:28 Dose: 1,000 mg Apixaban (Eliquis) 10 mg PO BID [facility] Stop: 10/14/18 22:01 Last Admin: 10/11/18 08:17 Dose: 10 mg Apixaban (Eliquis) 5 mg PO BID [facility] Ascorbic Acid (Vitamin C) 1,000 mg PO DAILY [facility] Last Admin: 10/11/18 08:16 Dose: 1,000 mg Bacitracin (Bacitracin Ointment) 1 applic TOPICAL BID PRN; Protocol PRN Reason: If blister break apply Last Admin: 10/11/18 02:59 Dose: 1 applicatio Bisacodyl (Dulcolax) 10 mg RECTAL .PRN X 1 PRN PRN Reason: Constipation Calcium Carbonate (Tums) 1,000 mg PO Q4H PRN PRN PRN Reason: Gas Cholecalciferol (Vitamin D) 1,000 unit PO DAILY [facility] Last Admin: 10/11/18 08:16 Dose: 1,000 unit Fentanyl (Duragesic Patch) 12 mcg TRANSDERM. Q3D [facility] Last Admin: 10/09/18 13:06 Dose: 12 mcg Furosemide (Lasix) 20 mg PO DAILY [facility] Last Admin: 10/11/18 08:16 Dose: 20 mg Magnesium Hydroxide (Milk Of Magnesia) 30 ml PO .PRN X 1 PRN PRN Reason: Constipation Oxycodone HCl (Oxyir) 5 - 10 mg PO Q4H PRN PRN PRN Reason: PAIN Last Admin: 10/11/18 12:48 Dose: 10 mg Pantoprazole Sodium (Protonix) 20 mg PO DAILY [facility] Last Admin: 10/11/18 08:16 Dose: 20 mg Polyethylene Glycol (Miralax) 17 gm PO BID [facility] Last Admin: 10/11/18 08:19 Dose: Not Given Senna/Docusate Sodium (Senokot-S, Angela-Colace) 2 tablet PO BID [facility] Last Admin: 10/11/18 08:16 Dose: 2 tablet Medical Necessity - Tobacco Use Smoking Status: Current every day smoker Tobacco Use: Cigars, Chew Assessment/Plan All Active Problems (Last Reviewed 09/11/18 @ 12:04 by Latha Hardy) DVT, bilateral lower limbs (Acute) Anemia (Acute) Closed right hip fracture (Acute) The patient is a 67 y/o M w/ PMHx: HTN, Anemia, Chronic Back Pain, Tobacco use, Obesity, recent mechanical fall w/ 09/28/18 R ORIF w/ IM nailing who presents to the [facility] Facility on 10/04/18 for ongoing PT, OT therapies. (1) Recent Acute R Hip Fracture s/p Mechanical Fall w/ Continued Site bleedin09/28/18 OSH ([facility]) R ORIF w/ IM nailing, fall precautions, ASA BID per Orthopedic surgery for chemoprophylaxis, PRN pain regimen, continued PT and OT therapies. Bowel regimen for constipation. Upon transition to [facility] Orthopedic surgery had requested continued dressing in place x 1 week, since removed. WBAT. Will need follow-up with Orthopedic surgery per their discretion. Ongoing incisional oozing since transition to Acute rehabilitation, given this Rehabilitation physician has requested Hem/Onc as well as Vascular Surgery evaluation which are pending. Pending factor VIII and von Willebrand studies. (2) BL LE DVT, Post-operatively: Following transition to Acute Rehab facility onset BL LE discomfort, edema, DVT w/ + BL LE DVT, started and continued on Eliquis, pending anticoagulation work-up. (3) BL LE Edema, complicated by #2 and recent #1 w/ RLE Anterior and Lateral Ankle Serous Filled Blisters: Rehab physician held HCTZ and dosed low dose lasix x 3 doses. Given presentation may consider also SARAH wrap addition and elevation given anticoagulation active. Additionally recommend Wound RN consultation to follow as rather large blisters present. (4) Recent NICOLE, Resolved: Noted prior Cr 1.5, 10/05/18 BUN/Cr 28/1.11. (5) Recent Hematuria: Unclear if possibly associated w/ dewitt catheter, admission UA w/ 150 occult blood and repeat improved, 50. Given tobacco usage history would benefit from Urology referral outpatient. (6) Recent Atypical Chest Pain: EKG unremarkable, cardiac enzyme x 3 normal, suspect non-cardiac. (7) Anemia, normocytic: Unclear if chronic but suspect likely, admission hemoglobin 10.2, coagulation studies including factor VIII and von Willebrand pending. (8) Hypertension: Continue home regimen including losartan, hydrochlorothiazide, PRN hydralazine. (9) Tobacco Abuse: Encouraged cessation, inpatient consultation per RT, NR if desired. (10) DVT Prophylaxis: SCDs, ASA 81 mg BID x 1 month per Orthopedic surgery recommendation. Code Visit Inpatient E&M: 71338 Subs Hosp L2
[2018-10-11 19:17] VITALS: BP 117/67; PULSE 76; RESP 18; TEMP 36.6; O2SAT 98
[2018-10-11 21:50] VITALS: PULSE 76; RESP 18; O2SAT 98
--- NOTE | 2018-10-12 00:12 | NURSING ---
2300 staff completed changing dressing on pt foot d/t blister draining to the outter ankle on the rt. blister to the the top of the foot was also changed as well with no drainage noted , the blister is noted to be partially filled with serous fluid . pt asked earlier if he could have pain medication and tylenol had been given staff didn't realize the time and stated let me check and was able to given the oxyir, staff questions pt if he would like to have it and pt stated not right now but i do i will call you. after changing dressing to pt foot pt reports that his pain has increased and again pt offered pain medication and pt declined again stating that he would wait
[2018-10-12] MEDS: oxyCODONE 5 MG Tablet PO ×5 (03:40→23:28)
[2018-10-12] MEDS: Acetaminophen 500 MG Tablet 1000 MG PO ×3 (05:23→23:30)
--- NOTE | 2018-10-12 07:30 | NURSING ---
agree with scale agent's handoff
[2018-10-12] MEDS: APIXABAN 5 MG TABLET 10 MG PO ×2 (07:58→23:29)
[2018-10-12] MEDS: Pantoprazole Sodium 20 MG Tablet PO (07:58)
[2018-10-12] MEDS: Ascorbic Acid 500 MG Tablet 1000 MG PO (07:58)
[2018-10-12] MEDS: Furosemide 20 MG Tablet PO (07:58)
[2018-10-12] MEDS: Senna/Docusate Sodium 1 Tablet 2 TABLET PO ×2 (07:59→23:29)
[2018-10-12 09:18] VITALS: BP 141/78; PULSE 77; RESP 18; TEMP 36.6; O2SAT 95
--- NOTE | 2018-10-12 11:33 | PCM.CONS.GEN ---
Problem List (1) DVT, bilateral lower limbs Status: Acute Qualifiers: Affected thrombotic vein of extremity: popliteal Chronicity: acute Qualified Code(s): I82.433 - Acute embolism and thrombosis of popliteal vein, bilateral Reason for Consult Date of Consultation: 10/12/18 History of Present Illness: The patient is a 67 year old M that had fallen in September 29, 2018 had ORIF. He had some increasing swelling postoperatively was at [facility] and did an ultrasound that showed DVT of the right leg from the popliteal through the posterior tibial, peroneal and into the gastroc. Left leg had a DVT of the gastroc. No prior DVT. Patient is up-to-date on all his screening. Does smoke cigars daily. He has significant swelling in the right leg from the injury in the DVT. He has an Hiram wrap on the leg currently. He eventually will need long-term knee-high 20-30 mmHg compression stockings. He has been started on Eliquis at this point. Vascular surgery consulted for the DVT. [] Past Medical History Past Medical History (Chronic Problems): Chronic Problems (Last Reviewed 10/12/18 @ 11:35 by Carson Cm MD) Hypertension (Chronic) Medical History: Medical History (Last Reviewed 10/12/18 @ 11:35 by Carson Cm MD) Back pain M54.9 Hayfever J30.1 HTN (hypertension) I10 Allergies No Known Allergies Allergy (Verified 09/11/18 12:03) Home Medications: Ambulatory Orders Medication Instructions Recorded Ascorbic Acid [C-1000] 1,000 mg PO DAILY 10/04/18 Cholecalciferol (VIT D3) [Vitamin 1,000 unit PO DAILY 10/04/18 D] Losartan/Hydrochlorothiazide 1 each PO DAILY 10/04/18 [Losartan-Hctz 50-12.5 mg Tab] Oxycodone [Oxyir] 5 - 10 mg PO Q4H PRN PRN 10/04/18 Surgical History: cataract, - - Cyst removed from gum-oral Lives: Spouse/ Significant Other Smoking Status: Current every day smoker Tobacco Use: Cigars, Chew Alcohol: Occasional Drugs: None - *Family History Paternal History Items: No pertinent history Review of Systems Constitutional: Denies: Chills, Fever, Weight Change HEENT: Reports: Difficulty Hearing Cardiovascular: Denies: Chest Pain, Palpitations Respiratory: Denies: Cough, Shortness of breath at rest, Sputum production Gastrointestinal: Denies: Abdominal Pain, Nausea, Vomiting Genitourinary: Denies: Dysuria Musculoskeletal: Reports: Joint Pain, Joint Tenderness, - - Still some pain in right leg from the surgery also Skin: Reports: Rash, Wounds - Patient did have some blistering of the right leg that is improving. Patient Problems: Active and Suspected Problems (Last Reviewed 10/12/18 @ 11:35 by Carson Cm MD) DVT, bilateral lower limbs (Acute) Anemia (Acute) Closed right hip fracture (Acute) - Physical Exam General: Alert, Oriented x3, No apparent distress HEENT: PERRLA, EOMI Oral: Moist Mucosa Neck: Supple, No JVD Lungs: Clear to auscultation Cardiovascular: Regular rate Abdomen: Soft, Non Tender, Non-Distended Extremities: Edema - Right leg more edematous than the left. Hiram wrap is in place. Vital Signs Temp Pulse Resp BP Pulse Ox 97.8 F 77 18 141/78 H 95 10/12/18 09:18 10/12/18 09:18 10/12/18 09:18 10/12/18 09:18 10/12/18 09:18 Oxygen Flow Rate (L/min) 3 Oxygen Delivery Method Room Air Weight: 212 lb 8.41 oz Body Mass Index (BMI) 30.9 Intake and Output for Last 24 Hours 10/10/18 10/11/18 10/12/18 23:59 23:59 23:59 Intake Total 720 / 720 480 / 480 Output Total 200 / 200 Balance 520 / 520 480 / 480 Assessment/Plan All Active Problems (Last Reviewed 10/12/18 @ 11:35 by Carson Cm MD) DVT, bilateral lower limbs (Acute) Anemia (Acute) Closed right hip fracture (Acute) Patient with postoperative DVT left gastroc and the right popliteal and calf veins. DVT. He is currently on Eliquis. He has Hiram wrap for now. He eventually will need bilateral knee-high compression stockings. Continue to increase his rehab as able. We will see him back in 3-4 months with repeat venous ultrasound.
--- NOTE | 2018-10-12 12:12 | PCM.PN.NEU ---
Patient Problems: Active and Suspected Problems (Last Reviewed 10/12/18 @ 11:35 by Carson Cm MD) DVT, bilateral lower limbs (Acute) Anemia (Acute) Closed right hip fracture (Acute) Subjective: Patient seen and examined. No new complaints. The swelling in his legs have improved, the second blister on his right right has burst. He is Tolerating therapy, and has gained in strength and endurance. No issues with GI/. - Physical Exam General: Alert, Oriented x3, Cooperative HEENT: Atraumatic, PERRLA, EOMI, Normocephalic Neck: Supple, No JVD, Negative Carotid Bruits Lungs: Clear to auscultation, Normal air movement Cardiovascular: Regular rate, No murmurs Abdomen: Bowel Sounds Present, Soft, Non Tender Extremities: No edema, Capillary Refill Less than 3 Seconds Skin: No rashes, No breakdown Musculoskeletal: No Tenderness to Palpation of Joints or Extremities Neurological: Cranial nerves II-XII grossly intact Psych/Mental Status: Normal Affect, Appropriate, Alert and oriented to time, place, person, mood and affect Vital Signs Temp Pulse Resp BP Pulse Ox 97.8 F 77 18 141/78 H 95 10/12/18 09:18 10/12/18 09:18 10/12/18 09:18 10/12/18 09:18 10/12/18 09:18 Oxygen Flow Rate (L/min) 3 Oxygen Delivery Method Room Air Weight: 96.4 kg Body Mass Index (BMI) 30.9 Intake and Output for Last 24 Hours 10/10/18 10/11/18 10/12/18 23:59 23:59 23:59 Intake Total 720 / 720 480 / 480 Output Total 200 / 200 Balance 520 / 520 480 / 480 Active Medications Acetaminophen (Tylenol) 1,000 mg PO TID [facility] Last Admin: 10/12/18 05:23 Dose: 1,000 mg Apixaban (Eliquis) 10 mg PO BID [facility] Stop: 10/14/18 22:01 Last Admin: 10/12/18 07:58 Dose: 10 mg Apixaban (Eliquis) 5 mg PO BID [facility] Ascorbic Acid (Vitamin C) 1,000 mg PO DAILY [facility] Last Admin: 10/12/18 07:58 Dose: 1,000 mg Bacitracin (Bacitracin Ointment) 1 applic TOPICAL BID PRN; Protocol PRN Reason: If blister break apply Last Admin: 10/11/18 19:03 Dose: 1 applicatio Bisacodyl (Dulcolax) 10 mg RECTAL .PRN X 1 PRN PRN Reason: Constipation Calcium Carbonate (Tums) 1,000 mg PO Q4H PRN PRN PRN Reason: Gas Cholecalciferol (Vitamin D) 1,000 unit PO DAILY [facility] Last Admin: 10/12/18 07:58 Dose: 1,000 unit Fentanyl (Duragesic Patch) 12 mcg TRANSDERM. Q3D [facility] Last Admin: 10/09/18 13:06 Dose: 12 mcg Furosemide (Lasix) 20 mg PO DAILY [facility] Last Admin: 10/12/18 07:58 Dose: 20 mg Magnesium Hydroxide (Milk Of Magnesia) 30 ml PO .PRN X 1 PRN PRN Reason: Constipation Oxycodone HCl (Oxyir) 5 - 10 mg PO Q4H PRN PRN PRN Reason: PAIN Last Admin: 10/12/18 08:02 Dose: 10 mg Pantoprazole Sodium (Protonix) 20 mg PO DAILY [facility] Last Admin: 10/12/18 07:58 Dose: 20 mg Polyethylene Glycol (Miralax) 17 gm PO BID [facility] Last Admin: 10/12/18 08:03 Dose: Not Given Senna/Docusate Sodium (Senokot-S, Angela-Colace) 2 tablet PO BID [facility] Last Admin: 10/12/18 07:59 Dose: 1 tablet Medical Necessity - Tobacco Use Smoking Status: Current every day smoker Tobacco Use: Cigars, Chew Assessment/Plan All Active Problems (Last Reviewed 10/12/18 @ 11:35 by Carson Cm MD) DVT, bilateral lower limbs (Acute) Anemia (Acute) Closed right hip fracture (Acute) Debility status post Right ORIF with IM nailing. Goal of rehab is muslim of prior level of functional independence. Plan: - Physical therapy for gait and balance - Occupational Therapy for ADLs - Speech therapy - As needed analgesics - Bowel protocol - DVT prophylaxis: SCDs, ASA 81 mg BID x i month, per Orthopedics team, - Hypertension: Stable with good control, continue home dose of Losartan - HCTZ - Post op anemia, (did not require blood transfusion) - resolved Hgb on discharge from [facility] was 11.6. - B/L TKA Incision site C/D/I, => healing nicely, steri strips are beginning to fall off, no redness or warmth noted around incision area. - Tobacco dependence counseled on cessation, offered nicotine patch for tobacco cravings, patient refused - NICOLE with CR 1.5 - has resolved, continue to monitor renal panel - Hematuria - recheck urine on admission - Weight bearing status => WBAT with full range of motion, quad isometrics but no straight leg raises or active abduction - Wound care => leave dressing intact, may shower, may remove opti-foam dressing in 7 - 10 days, leave prineo tape stripe for 2-3 weeks. - Incision site => The Dressing has small amount of bloody drainage, there is slight edema around the incision, with ecchymosis along the thigh and back of knee - Follow up appointment with Dr. Lima in 2-3 weeks, call to make an appointment - Acute chest pain - Negative Troponin x 3 and EKG with a regular rate and rhythm, with no abnormal wave form - B/L Doppler of lower extremity show multiple DVTs started on Eliquis dvt dosing. - Consult out to Vascular surgery, Hematology and obtain anticoagulation studies. - Start Lasix 20mg, hold HCTZ for the next three days, will re-evaluate edema and re-start HCTZ. - Hematology has seen patient would like to follow up in 3 to 4 months with a repeated B/L Venous Ultra Sound study, prior to appointment. Will schedule appointment prior to discharge home.
--- NOTE | 2018-10-12 12:19 | PN.NEURO_ITS ---
Patient Problems: Active and Suspected Problems (Last Reviewed 10/12/18 @ 11:35 by Carson Cm MD) DVT, bilateral lower limbs (Acute) Anemia (Acute) Closed right hip fracture (Acute) Subjective: Patient seen and examined. No new complaints. The swelling in his legs have improved, the second blister on his right right has burst. He is Tolerating therapy, and has gained in strength and endurance. No issues with GI/. - Physical Exam General: Alert, Oriented x3, Cooperative HEENT: Atraumatic, PERRLA, EOMI, Normocephalic Neck: Supple, No JVD, Negative Carotid Bruits Lungs: Clear to auscultation, Normal air movement Cardiovascular: Regular rate, No murmurs Abdomen: Bowel Sounds Present, Soft, Non Tender Extremities: No edema, Capillary Refill Less than 3 Seconds Skin: No rashes, No breakdown Musculoskeletal: No Tenderness to Palpation of Joints or Extremities Neurological: Cranial nerves II-XII grossly intact Psych/Mental Status: Normal Affect, Appropriate, Alert and oriented to time, place, person, mood and affect Vital Signs Temp Pulse Resp BP Pulse Ox 97.8 F 77 18 141/78 H 95 10/12/18 09:18 10/12/18 09:18 10/12/18 09:18 10/12/18 09:18 10/12/18 09:18 Oxygen Flow Rate (L/min) 3 Oxygen Delivery Method Room Air Weight: 96.4 kg Body Mass Index (BMI) 30.9 Intake and Output for Last 24 Hours 10/10/18 10/11/18 10/12/18 23:59 23:59 23:59 Intake Total 720 / 720 480 / 480 Output Total 200 / 200 Balance 520 / 520 480 / 480 Active Medications Acetaminophen (Tylenol) 1,000 mg PO TID [facility] Last Admin: 10/12/18 05:23 Dose: 1,000 mg Apixaban (Eliquis) 10 mg PO BID [facility] Stop: 10/14/18 22:01 Last Admin: 10/12/18 07:58 Dose: 10 mg Apixaban (Eliquis) 5 mg PO BID [facility] Ascorbic Acid (Vitamin C) 1,000 mg PO DAILY [facility] Last Admin: 10/12/18 07:58 Dose: 1,000 mg Bacitracin (Bacitracin Ointment) 1 applic TOPICAL BID PRN; Protocol PRN Reason: If blister break apply Last Admin: 10/11/18 19:03 Dose: 1 applicatio Bisacodyl (Dulcolax) 10 mg RECTAL .PRN X 1 PRN PRN Reason: Constipation Calcium Carbonate (Tums) 1,000 mg PO Q4H PRN PRN PRN Reason: Gas Cholecalciferol (Vitamin D) 1,000 unit PO DAILY [facility] Last Admin: 10/12/18 07:58 Dose: 1,000 unit Fentanyl (Duragesic Patch) 12 mcg TRANSDERM. Q3D [facility] Last Admin: 10/09/18 13:06 Dose: 12 mcg Furosemide (Lasix) 20 mg PO DAILY [facility] Last Admin: 10/12/18 07:58 Dose: 20 mg Magnesium Hydroxide (Milk Of Magnesia) 30 ml PO .PRN X 1 PRN PRN Reason: Constipation Oxycodone HCl (Oxyir) 5 - 10 mg PO Q4H PRN PRN PRN Reason: PAIN Last Admin: 10/12/18 08:02 Dose: 10 mg Pantoprazole Sodium (Protonix) 20 mg PO DAILY [facility] Last Admin: 10/12/18 07:58 Dose: 20 mg Polyethylene Glycol (Miralax) 17 gm PO BID [facility] Last Admin: 10/12/18 08:03 Dose: Not Given Senna/Docusate Sodium (Senokot-S, Angela-Colace) 2 tablet PO BID [facility] Last Admin: 10/12/18 07:59 Dose: 1 tablet Medical Necessity - Tobacco Use Smoking Status: Current every day smoker Tobacco Use: Cigars, Chew Assessment/Plan All Active Problems (Last Reviewed 10/12/18 @ 11:35 by Carson Cm MD) DVT, bilateral lower limbs (Acute) Anemia (Acute) Closed right hip fracture (Acute) Debility status post Right ORIF with IM nailing. Goal of rehab is druze of prior level of functional independence. Plan: - Physical therapy for gait and balance - Occupational Therapy for ADLs - Speech therapy - As needed analgesics - Bowel protocol - DVT prophylaxis: SCDs, ASA 81 mg BID x i month, per Orthopedics team, - Hypertension: Stable with good control, continue home dose of Losartan - HCTZ - Post op anemia, (did not require blood transfusion) - resolved Hgb on discharge from [facility] was 11.6. - B/L TKA Incision site C/D/I, => healing nicely, steri strips are beginning to fall off, no redness or warmth noted around incision area. - Tobacco dependence counseled on cessation, offered nicotine patch for tobacco cravings, patient refused - NICOLE with CR 1.5 - has resolved, continue to monitor renal panel - Hematuria - recheck urine on admission - Weight bearing status => WBAT with full range of motion, quad isometrics but no straight leg raises or active abduction - Wound care => leave dressing intact, may shower, may remove opti-foam dressing in 7 - 10 days, leave prineo tape stripe for 2-3 weeks. - Incision site => The Dressing has small amount of bloody drainage, there is slight edema around the incision, with ecchymosis along the thigh and back of knee - Follow up appointment with Dr. Lima in 2-3 weeks, call to make an appointment - Acute chest pain - Negative Troponin x 3 and EKG with a regular rate and rhythm, with no abnormal wave form - B/L Doppler of lower extremity show multiple DVTs started on Eliquis dvt dosing. - Consult out to Vascular surgery, Hematology and obtain anticoagulation studies. - Start Lasix 20mg, hold HCTZ for the next three days, will re-evaluate edema and re-start HCTZ. - Hematology has seen patient would like to follow up in 3 to 4 months with a repeated B/L Venous Ultra Sound study, prior to appointment. Will schedule appointment prior to discharge home.
[2018-10-12] MEDS: BACITRACIN 15 GM Tube 1 APPLIC TOPICAL (18:32)
[2018-10-12 22:00] VITALS: BP 128/67; PULSE 72; RESP 18; TEMP 36.6; O2SAT 96
--- NOTE | 2018-10-13 04:28 | NURSING ---
REVIEWED AND AGREE WITH MANAGER TRANSITION FIM AND HANDOFF CHARTING.
[2018-10-13] MEDS: Acetaminophen 500 MG Tablet 1000 MG PO ×3 (05:57→21:15)
[2018-10-13] MEDS: oxyCODONE 5 MG Tablet PO ×3 (05:57→19:33)
[2018-10-13 08:13] VITALS: BP 105/62; PULSE 69; RESP 16; TEMP 36.9; O2SAT 95
[2018-10-13] MEDS: APIXABAN 5 MG TABLET 10 MG PO ×2 (08:13→21:15)
[2018-10-13] MEDS: Pantoprazole Sodium 20 MG Tablet PO (08:13)
[2018-10-13] MEDS: Furosemide 20 MG Tablet PO (08:13)
[2018-10-13] MEDS: Ascorbic Acid 500 MG Tablet 1000 MG PO (08:14)
[2018-10-13] MEDS: Senna/Docusate Sodium 1 Tablet 2 TABLET PO (08:14)
--- NOTE | 2018-10-13 10:43 | NURSING ---
0800- pt up in chair and asking for shower. reported feeling pretty good rt now pain a 2 rachel to come for eval on blisters.
--- NOTE | 2018-10-13 10:44 | NURSING ---
Angelina- sybil to assist with shower as part of therapy today. rachel here to assess blisters rt heel and foot
--- NOTE | 2018-10-13 11:54 | NURSING ---
wound photo: right dorsal foot
--- NOTE | 2018-10-13 11:55 | NURSING ---
wound photo: right lateral foot/ankle
--- NOTE | 2018-10-13 12:55 | PCM.PN.NEU ---
Patient Problems: Active and Suspected Problems (Last Reviewed 10/12/18 @ 11:35 by Carson Cm MD) DVT, bilateral lower limbs (Acute) Anemia (Acute) Closed right hip fracture (Acute) Subjective: Patient seen and examined. No new complaints, tolerating therapy. The blisters on his right dorsal foot and lateral foot/ankle was drained by the wound care nurse, then cover with adaptic. He denies any shortness of breath or chest pains. He is on Eliquis for Acute DVTs. No issues with GI/. - Physical Exam General: Alert, Oriented x3, Cooperative HEENT: Atraumatic, PERRLA, EOMI, Normocephalic Neck: Supple, No JVD, Negative Carotid Bruits Lungs: Clear to auscultation, Normal air movement Cardiovascular: Regular rate, No murmurs Abdomen: Bowel Sounds Present, Soft, Non Tender Extremities: No edema, Capillary Refill Less than 3 Seconds Skin: No rashes, No breakdown Musculoskeletal: No Tenderness to Palpation of Joints or Extremities Neurological: Cranial nerves II-XII grossly intact Psych/Mental Status: Normal Affect, Appropriate, Alert and oriented to time, place, person, mood and affect Vital Signs Temp Pulse Resp BP Pulse Ox 98.4 F 69 16 105/62 95 10/13/18 08:13 10/13/18 08:13 10/13/18 08:13 10/13/18 08:13 10/13/18 08:13 Oxygen Flow Rate (L/min) 3 Oxygen Delivery Method Room Air Weight: 96.4 kg Body Mass Index (BMI) 30.9 Intake and Output for Last 24 Hours 10/11/18 10/12/18 10/13/18 23:59 23:59 23:59 Intake Total 480 / 480 480 / 480 Balance 480 / 480 480 / 480 Active Medications Acetaminophen (Tylenol) 1,000 mg PO TID [facility] Last Admin: 10/13/18 05:57 Dose: 1,000 mg Apixaban (Eliquis) 10 mg PO BID [facility] Stop: 10/14/18 22:01 Last Admin: 10/13/18 08:13 Dose: 10 mg Apixaban (Eliquis) 5 mg PO BID [facility] Ascorbic Acid (Vitamin C) 1,000 mg PO DAILY [facility] Last Admin: 10/13/18 08:14 Dose: 1,000 mg Bisacodyl (Dulcolax) 10 mg RECTAL .PRN X 1 PRN PRN Reason: Constipation Calcium Carbonate (Tums) 1,000 mg PO Q4H PRN PRN PRN Reason: Gas Cholecalciferol (Vitamin D) 1,000 unit PO DAILY [facility] Last Admin: 10/13/18 08:14 Dose: 1,000 unit Fentanyl (Duragesic Patch) 12 mcg TRANSDERM. Q3D [facility] Last Admin: 10/12/18 13:20 Dose: 12 mcg Furosemide (Lasix) 20 mg PO DAILY [facility] Last Admin: 10/13/18 08:13 Dose: 20 mg Magnesium Hydroxide (Milk Of Magnesia) 30 ml PO .PRN X 1 PRN PRN Reason: Constipation Nutritional Formula (Sebastian - [place] Flavor) 1 packet PO BIDCM [facility] Last Admin: 10/13/18 08:12 Dose: 1 packet Oxycodone HCl (Oxyir) 5 - 10 mg PO Q4H PRN PRN PRN Reason: PAIN Last Admin: 10/13/18 11:02 Dose: 10 mg Pantoprazole Sodium (Protonix) 20 mg PO DAILY [facility] Last Admin: 10/13/18 08:13 Dose: 20 mg Polyethylene Glycol (Miralax) 17 gm PO BID [facility] Last Admin: 10/13/18 08:15 Dose: Not Given Senna/Docusate Sodium (Senokot-S, Angela-Colace) 2 tablet PO BID [facility] Last Admin: 10/13/18 08:14 Dose: 2 tablet Medical Necessity - Tobacco Use Smoking Status: Current every day smoker Tobacco Use: Cigars, Chew Assessment/Plan All Active Problems (Last Reviewed 10/12/18 @ 11:35 by Carson Cm MD) DVT, bilateral lower limbs (Acute) Anemia (Acute) Closed right hip fracture (Acute) Debility status post Right ORIF with IM nailing. Goal of rehab is hoahaoism of prior level of functional independence. Plan: - Physical therapy for gait and balance - Occupational Therapy for ADLs - Speech therapy - As needed analgesics - Bowel protocol - DVT prophylaxis: SCDs, ASA 81 mg BID x i month, per Orthopedics team, - Hypertension: Stable with good control, continue home dose of Losartan - HCTZ - Post op anemia, (did not require blood transfusion) - resolved Hgb on discharge from [facility] was 11.6. - B/L TKA Incision site C/D/I, => healing nicely, steri strips are beginning to fall off, no redness or warmth noted around incision area. - Tobacco dependence counseled on cessation, offered nicotine patch for tobacco cravings, patient refused - NICOLE with CR 1.5 - has resolved, continue to monitor renal panel - Hematuria - recheck urine on admission - Weight bearing status => WBAT with full range of motion, quad isometrics but no straight leg raises or active abduction - Wound care => leave dressing intact, may shower, may remove opti-foam dressing in 7 - 10 days, leave prineo tape stripe for 2-3 weeks. - Incision site => The Dressing has small amount of bloody drainage, there is slight edema around the incision, with ecchymosis along the thigh and back of knee - Follow up appointment with Dr. Lima in 2-3 weeks, call to make an appointment - Acute chest pain - Negative Troponin x 3 and EKG with a regular rate and rhythm, with no abnormal wave form - B/L Doppler of lower extremity show multiple DVTs started on Eliquis dvt dosing. - Consult out to Vascular surgery, Hematology and obtain anticoagulation studies. - Start Lasix 20mg, hold HCTZ for the next three days, will re-evaluate edema and re-start HCTZ. - Hematology has seen patient would like to follow up in 3 to 4 months with a repeated B/L Venous Ultra Sound study, prior to appointment. Will schedule appointment prior to discharge home. - Blister on the right dorsal foot and lateral foot/ankle - Wound care nurse saw patient and drained both areas, and applied adaptic to site.
--- NOTE | 2018-10-13 13:00 | PN.NEURO_ITS ---
Patient Problems: Active and Suspected Problems (Last Reviewed 10/12/18 @ 11:35 by Carson Cm MD) DVT, bilateral lower limbs (Acute) Anemia (Acute) Closed right hip fracture (Acute) Subjective: Patient seen and examined. No new complaints, tolerating therapy. The blisters on his right dorsal foot and lateral foot/ankle was drained by the wound care nurse, then cover with adaptic. He denies any shortness of breath or chest pains. He is on Eliquis for Acute DVTs. No issues with GI/. - Physical Exam General: Alert, Oriented x3, Cooperative HEENT: Atraumatic, PERRLA, EOMI, Normocephalic Neck: Supple, No JVD, Negative Carotid Bruits Lungs: Clear to auscultation, Normal air movement Cardiovascular: Regular rate, No murmurs Abdomen: Bowel Sounds Present, Soft, Non Tender Extremities: No edema, Capillary Refill Less than 3 Seconds Skin: No rashes, No breakdown Musculoskeletal: No Tenderness to Palpation of Joints or Extremities Neurological: Cranial nerves II-XII grossly intact Psych/Mental Status: Normal Affect, Appropriate, Alert and oriented to time, place, person, mood and affect Vital Signs Temp Pulse Resp BP Pulse Ox 98.4 F 69 16 105/62 95 10/13/18 08:13 10/13/18 08:13 10/13/18 08:13 10/13/18 08:13 10/13/18 08:13 Oxygen Flow Rate (L/min) 3 Oxygen Delivery Method Room Air Weight: 96.4 kg Body Mass Index (BMI) 30.9 Intake and Output for Last 24 Hours 10/11/18 10/12/18 10/13/18 23:59 23:59 23:59 Intake Total 480 / 480 480 / 480 Balance 480 / 480 480 / 480 Active Medications Acetaminophen (Tylenol) 1,000 mg PO TID [facility] Last Admin: 10/13/18 05:57 Dose: 1,000 mg Apixaban (Eliquis) 10 mg PO BID [facility] Stop: 10/14/18 22:01 Last Admin: 10/13/18 08:13 Dose: 10 mg Apixaban (Eliquis) 5 mg PO BID [facility] Ascorbic Acid (Vitamin C) 1,000 mg PO DAILY [facility] Last Admin: 10/13/18 08:14 Dose: 1,000 mg Bisacodyl (Dulcolax) 10 mg RECTAL .PRN X 1 PRN PRN Reason: Constipation Calcium Carbonate (Tums) 1,000 mg PO Q4H PRN PRN PRN Reason: Gas Cholecalciferol (Vitamin D) 1,000 unit PO DAILY [facility] Last Admin: 10/13/18 08:14 Dose: 1,000 unit Fentanyl (Duragesic Patch) 12 mcg TRANSDERM. Q3D [facility] Last Admin: 10/12/18 13:20 Dose: 12 mcg Furosemide (Lasix) 20 mg PO DAILY [facility] Last Admin: 10/13/18 08:13 Dose: 20 mg Magnesium Hydroxide (Milk Of Magnesia) 30 ml PO .PRN X 1 PRN PRN Reason: Constipation Nutritional Formula (Sebastian - [place] Flavor) 1 packet PO BIDCM [facility] Last Admin: 10/13/18 08:12 Dose: 1 packet Oxycodone HCl (Oxyir) 5 - 10 mg PO Q4H PRN PRN PRN Reason: PAIN Last Admin: 10/13/18 11:02 Dose: 10 mg Pantoprazole Sodium (Protonix) 20 mg PO DAILY [facility] Last Admin: 10/13/18 08:13 Dose: 20 mg Polyethylene Glycol (Miralax) 17 gm PO BID [facility] Last Admin: 10/13/18 08:15 Dose: Not Given Senna/Docusate Sodium (Senokot-S, Angela-Colace) 2 tablet PO BID [facility] Last Admin: 10/13/18 08:14 Dose: 2 tablet Medical Necessity - Tobacco Use Smoking Status: Current every day smoker Tobacco Use: Cigars, Chew Assessment/Plan All Active Problems (Last Reviewed 10/12/18 @ 11:35 by Carson Cm MD) DVT, bilateral lower limbs (Acute) Anemia (Acute) Closed right hip fracture (Acute) Debility status post Right ORIF with IM nailing. Goal of rehab is pentecostal of prior level of functional independence. Plan: - Physical therapy for gait and balance - Occupational Therapy for ADLs - Speech therapy - As needed analgesics - Bowel protocol - DVT prophylaxis: SCDs, ASA 81 mg BID x i month, per Orthopedics team, - Hypertension: Stable with good control, continue home dose of Losartan - HCTZ - Post op anemia, (did not require blood transfusion) - resolved Hgb on discharge from [facility] was 11.6. - B/L TKA Incision site C/D/I, => healing nicely, steri strips are beginning to fall off, no redness or warmth noted around incision area. - Tobacco dependence counseled on cessation, offered nicotine patch for tobacco cravings, patient refused - NICOLE with CR 1.5 - has resolved, continue to monitor renal panel - Hematuria - recheck urine on admission - Weight bearing status => WBAT with full range of motion, quad isometrics but no straight leg raises or active abduction - Wound care => leave dressing intact, may shower, may remove opti-foam dressing in 7 - 10 days, leave prineo tape stripe for 2-3 weeks. - Incision site => The Dressing has small amount of bloody drainage, there is slight edema around the incision, with ecchymosis along the thigh and back of knee - Follow up appointment with Dr. Lima in 2-3 weeks, call to make an appointment - Acute chest pain - Negative Troponin x 3 and EKG with a regular rate and rhythm, with no abnormal wave form - B/L Doppler of lower extremity show multiple DVTs started on Eliquis dvt dosing. - Consult out to Vascular surgery, Hematology and obtain anticoagulation studies. - Start Lasix 20mg, hold HCTZ for the next three days, will re-evaluate edema and re-start HCTZ. - Hematology has seen patient would like to follow up in 3 to 4 months with a repeated B/L Venous Ultra Sound study, prior to appointment. Will schedule appointment prior to discharge home. - Blister on the right dorsal foot and lateral foot/ankle - Wound care nurse saw patient and drained both areas, and applied adaptic to site.
--- NOTE | 2018-10-13 16:05 | CHAPLAIN ---
Type of Pastoral Visit ___ Initial Visit _x__ Follow-up Visit ___ On-call Visit ___ General Patient Visit ___ Spiritual Assessment ___ Family Conference ___ Bereavement ___ Rapid Response ___ Code Blue ___ Other (describe below) Pastoral Care Referral From _x__ Patient ___ Family ___ Nurse ___ Physician ___ Certified Drug Counselor ___ Lab Rep ___ Other (describe below) Sacrament/Intervention _x__ Active listening ___ Anointing ___ Oriental Orthodox ___ Bereavement ___ Communion ___ Mirian exploration ___ ___ Life review ___ Prayer ___ Reconciliation ___ Sacrament of Sick ___ Supportive presence ___ Wedding ___ Other (describe below) Pastoral Comments
--- NOTE | 2018-10-13 19:30 | NURSING ---
Patient pleasant, up to bathroom x 1 assist via walker. Patient reported when he lifts his arm he has some pain to right pec muscle. Patient reported he overworked himself in therapy. Will monitor.
[2018-10-13] MEDS: Senna/Docusate Sodium 1 Tablet PO (19:33)
[2018-10-13 19:55] VITALS: BP 132/55; PULSE 70; RESP 17; TEMP 36.7; O2SAT 97
[2018-10-14] MEDS: oxyCODONE 5 MG Tablet PO ×4 (01:40→17:17)
[2018-10-14] MEDS: Acetaminophen 500 MG Tablet 1000 MG PO ×3 (06:18→21:01)
[2018-10-14 07:00] VITALS: BP 119/66; PULSE 60; RESP 17; TEMP 36.7; O2SAT 93
[2018-10-14] MEDS: Senna/Docusate Sodium 1 Tablet PO ×2 (07:53→21:01)
[2018-10-14] MEDS: Pantoprazole Sodium 20 MG Tablet PO (07:54)
[2018-10-14] MEDS: APIXABAN 5 MG TABLET 10 MG PO ×2 (07:56→21:01)
[2018-10-14] MEDS: Furosemide 20 MG Tablet PO (07:56)
[2018-10-14] MEDS: Ascorbic Acid 500 MG Tablet 1000 MG PO (07:57)
--- NOTE | 2018-10-14 11:34 | NURSING ---
pt drsg changed to rt leg and pt in good spirits. waiting to see from [facility] nurse if ok to follow up with pcp in 1 week for incision check since pt stated, i was only visiting when i had surgery at that hospital and have no plans of going back there. per dc sheet pt could follow up with local ortho
--- NOTE | 2018-10-14 14:50 | PCM.PN.HOSP ---
Patient Problems: Active and Suspected Problems (Last Reviewed 10/12/18 @ 11:35 by Carson Cm MD) DVT, bilateral lower limbs (Acute) Anemia (Acute) Closed right hip fracture (Acute) Subjective: Patient notes bilateral lower extremities improved since recent interventions with wound care drainage of bilateral blisters and Adaptic placement dressing care in addition to decreased bilateral lower extremity edema with snug Hiram wrap placement. Discussed plan of care to continue with bilateral snug Hiram wraps in addition to elevation preferentially above heart for continued improvement. Patient continues on temporary Lasix to assist with improvement. Patient denies fevers, chills, nausea, emesis, abdominal pain, chest pain or dyspnea. Objective: Physical Examination: General: awake, alert, oriented x 3 and cooperative, walking in the halls initially, seated upright, in no apparent distress. Skin: normal color, turgor, no icterus, cyanosis, s/p R ankle anterior and lateral blister drainage, some reaccumulation, adaptic, decreased edema but still notable, s/p hip fracture w/ repair. HEENT: AT/NC, EOMI, PERRLA, MMM. Lungs: CTA bilaterally, moderate effort, mild decrease BL bases, no rales, ronchi or wheezing. Heart: Regular rate and rhythm; no gallop, rub audible. Abdomen: soft, obese, NTTP, ND, normal BS. Extremities: no cyanosis, clubbing, BL LE pedal to distal chung edema improving, 2+ edema, see skin. Neurological: patient awake, alert, oriented x 3; cognitive function intact; pupils equally reactive to light and accomodation; cranial nerves II-XII grossly normal, moving all 4 extremities, no focal deficits, strength improving, moderately globally decreased. Psychiatric: affect appears normal, no acute evidence of depressive or anxiety feelings. Vitals/I&O's: Vital Signs Temp Pulse Resp BP Pulse Ox 98.0 F 60 17 119/66 93 10/14/18 07:00 10/14/18 07:00 10/14/18 07:00 10/14/18 07:00 10/14/18 07:00 Oxygen Flow Rate (L/min) 3 Oxygen Delivery Method Room Air Weight: 212 lb 8.41 oz Body Mass Index (BMI) 30.9 Intake and Output for Last 24 Hours 10/12/18 10/13/18 10/14/18 23:59 23:59 23:59 Intake Total 1080 / 1080 480 / 480 Balance 1080 / 1080 480 / 480 Current Medications Acetaminophen (Tylenol) 1,000 mg PO TID [facility] Last Admin: 10/14/18 13:15 Dose: 1,000 mg Apixaban (Eliquis) 10 mg PO BID [facility] Stop: 10/14/18 22:01 Last Admin: 10/14/18 07:56 Dose: 10 mg Apixaban (Eliquis) 5 mg PO BID [facility] Ascorbic Acid (Vitamin C) 1,000 mg PO DAILY [facility] Last Admin: 10/14/18 07:57 Dose: 1,000 mg Bisacodyl (Dulcolax) 10 mg RECTAL .PRN X 1 PRN PRN Reason: Constipation Calcium Carbonate (Tums) 1,000 mg PO Q4H PRN PRN PRN Reason: Gas Cholecalciferol (Vitamin D) 1,000 unit PO DAILY [facility] Last Admin: 10/14/18 07:57 Dose: 1,000 unit Fentanyl (Duragesic Patch) 12 mcg TRANSDERM. Q3D [facility] Last Admin: 10/12/18 13:20 Dose: 12 mcg Furosemide (Lasix) 20 mg PO DAILY [facility] Last Admin: 10/14/18 07:56 Dose: 20 mg Magnesium Hydroxide (Milk Of Magnesia) 30 ml PO .PRN X 1 PRN PRN Reason: Constipation Nutritional Formula ([facility]astian - [place] [facility]) [facility] Last Admin: 10/14/18 07:56 Dose: 1 packet Oxycodone HCl (Oxyir) 5 - 10 mg PO Q4H PRN PRN PRN Reason: PAIN Last Admin: 10/14/18 13:15 Dose: 5 mg Pantoprazole Sodium (Protonix) 20 mg PO DAILY [facility] Last Admin: 10/14/18 07:54 Dose: 20 mg Polyethylene Glycol (Miralax) 17 gm PO BID [facility] Last Admin: 10/14/18 07:51 Dose: Not Given Senna/Docusate Sodium (Senokot-S, Angela-Colace) 1 tablet PO BID [facility] Last Admin: 10/14/18 07:53 Dose: 1 tablet Medical Necessity - Tobacco Use Smoking Status: Current every day smoker Tobacco Use: Cigars, Chew Assessment/Plan All Active Problems (Last Reviewed 12/05/18 @ 11:35 by Carson Cm MD) DVT, bilateral lower limbs (Acute) Anemia (Acute) Closed right hip fracture (Acute) The patient is a 67 y/o M w/ PMHx: HTN, Anemia, Chronic Back Pain, Tobacco use, Obesity, recent mechanical fall w/ 09/28/18 R ORIF w/ IM nailing who presents to the [facility] Acute Rehabilitation Facility on 10/04/18 for ongoing PT, OT therapies. (1) Recent Acute R Hip Fracture s/p Mechanical Fall w/ Continued Site bleedin09/28/18 OSH ([facility]) R ORIF w/ IM nailing, fall precautions, ASA BID per Orthopedic surgery for chemoprophylaxis, PRN pain regimen, continued PT and OT therapies. Bowel regimen for constipation. Upon transition to [facility] Orthopedic surgery had requested continued dressing in place x 1 week, since removed. WBAT. Will need follow-up with Orthopedic surgery per their discretion. Ongoing incisional oozing since transition to Acute rehabilitation, given this Rehabilitation physician has requested Hem/Onc as well as Vascular Surgery evaluation which are pending. Pending factor VIII and von Willebrand studies. (2) BL LE DVT, Post-operatively: Following transition to Acute Rehab facility onset BL LE discomfort, edema, DVT w/ + BL LE DVT, started and continued on Eliquis, pending anticoagulation work-up. (3) BL LE Edema, complicated by #2 and recent #1 w/ RLE Anterior and Lateral Ankle Serous Filled Blisters: Rehab physician held HCTZ and dosed low dose lasix x 3 doses. Given presentation had added HIRAM wrap addition and elevation given anticoagulation active. Additionally, had recommend Wound RN consultation to follow as rather large blisters present with since last evaluation drainage of blisters and adaptic application. Given recent lasix usage, will obtain BMP in AM. (4) Recent NICOLE, Resolved: Noted prior Cr 1.5, 10/05/18 BUN/Cr 05/12.11. 10/15/18 BMP requested given recent lasix usage. (5) Recent Hematuria: Unclear if possibly associated w/ dewitt catheter, admission UA w/ 150 occult blood and repeat improved, 50. Given tobacco usage history would benefit from Urology referral outpatient. (6) Recent Atypical Chest Pain: EKG unremarkable, cardiac enzyme x 3 normal, suspect non-cardiac. (7) Anemia, normocytic: Unclear if chronic but suspect likely, admission hemoglobin 10.2, coagulation studies including factor VIII and von Willebrand pending. (8) Hypertension: Continue home regimen including losartan, hydrochlorothiazide, PRN hydralazine. (9) Tobacco Abuse: Encouraged cessation, inpatient consultation per RT, NR if desired. (10) DVT Prophylaxis: SCDs, ASA 81 mg BID x 1 month per Orthopedic surgery recommendation. Code Visit Inpatient E&M: 85346 Subs Hosp L2
--- NOTE | 2018-10-14 18:09 | NURSING ---
pt teaching given to pt that needs to have legs elevated as much as possible. pt choosing to stay in chair and legs up on pillows.
--- NOTE | 2018-10-14 18:51 | NURSING ---
pt standing up with walker finishing using urinal without calling for assistance. pt stated, shhh i had to go in a hurry and couldnt wait fiance in observing pt and had given him the walker. teaching given that under no circumstance could he do so without staff in room d/t janie. polar care to rt thigh/hip for pain. pt reporting that not comfortable to hip now since legs are elevated
[2018-10-14 20:51] VITALS: BP 136/75; PULSE 69; RESP 16; TEMP 36.6; O2SAT 99
[2018-10-15] MEDS: oxyCODONE 5 MG Tablet PO ×4 (00:32→19:57)
[2018-10-15] MEDS: Acetaminophen 500 MG Tablet 1000 MG PO ×3 (06:19→21:36)
--- NOTE | 2018-10-15 07:01 | NURSING ---
Blood sugar 67 this am - OJ given
[2018-10-15 07:16] LABS: Anion Gap 6 (5-15); BUN 30 mg/dL (7-18); Calcium,Total 8.8 mg/dL (8.5-10.1); Chloride 107 mmol/L (98-107); Creatinine, Serum 1.07 mg/dL (0.70-1.30); EST Glomerular Filtration Rate 74 mL/min (>60); Est Glom Filt Rate - Afr Amer 89 mL/min (>60); Estimated Creatinine Clearance 68.83 ml/min; Glucose 95 mg/dL (74-106); Potassium 4.4 mmol/L (3.5-5.1); Sodium Level 143 mmol/L (136-145)
[2018-10-15] MEDS: APIXABAN 5 MG TABLET PO ×2 (07:47→21:37)
[2018-10-15] MEDS: Senna/Docusate Sodium 1 Tablet PO ×2 (07:47→21:37)
[2018-10-15] MEDS: Furosemide 20 MG Tablet PO (07:47)
[2018-10-15] MEDS: Ascorbic Acid 500 MG Tablet 1000 MG PO (07:47)
[2018-10-15] MEDS: Pantoprazole Sodium 20 MG Tablet PO (07:47)
[2018-10-15 07:55] VITALS: BP 117/69; PULSE 64; RESP 16; TEMP 36.8; O2SAT 96
[2018-10-15 19:59] VITALS: BP 119/65; PULSE 67; RESP 16; TEMP 36.9; O2SAT 96
[2018-10-16] MEDS: oxyCODONE 5 MG Tablet PO ×3 (02:30→19:55)
[2018-10-16] MEDS: Acetaminophen 500 MG Tablet 1000 MG PO ×3 (06:49→22:59)
[2018-10-16] MEDS: Ascorbic Acid 500 MG Tablet 1000 MG PO (07:34)
[2018-10-16] MEDS: Senna/Docusate Sodium 1 Tablet PO ×2 (07:34→23:00)
[2018-10-16] MEDS: Pantoprazole Sodium 20 MG Tablet PO (07:35)
[2018-10-16] MEDS: Furosemide 20 MG Tablet PO (07:35)
[2018-10-16] MEDS: APIXABAN 5 MG TABLET PO ×2 (07:35→23:00)
[2018-10-16 07:39] VITALS: BP 117/69; PULSE 68; RESP 18; TEMP 36.6; O2SAT 95
[2018-10-16 19:40] VITALS: BP 125/67; PULSE 80; RESP 18; TEMP 36.5; O2SAT 97
[2018-10-17] MEDS: oxyCODONE 5 MG Tablet PO ×5 (02:40→23:04)
[2018-10-17] MEDS: Acetaminophen 500 MG Tablet 1000 MG PO ×3 (05:57→21:31)
[2018-10-17 07:50] VITALS: BP 123/72; PULSE 60; RESP 16; TEMP 36.6; O2SAT 96
[2018-10-17] MEDS: APIXABAN 5 MG TABLET PO ×2 (08:07→21:34)
[2018-10-17] MEDS: Furosemide 20 MG Tablet PO (08:07)
[2018-10-17] MEDS: Senna/Docusate Sodium 1 Tablet PO ×2 (08:08→21:33)
[2018-10-17] MEDS: Ascorbic Acid 500 MG Tablet 1000 MG PO (08:08)
[2018-10-17] MEDS: Pantoprazole Sodium 20 MG Tablet PO (08:08)
--- NOTE | 2018-10-17 10:00 | CASEMGMT ---
Team meeting held. Patient present as well as patient family. Patient to discharge on 10/19/18 to home with significant other. Patient reporting to need a walker at time of discharge. Patient does not have a preference of [employer], [employer] to be utilized. Physical therapy is recommending for patient to have continued services through outpatient services. Patient is agreeable to recommendation and requesting for outpatient physical therapy to be set up through [facility]. Patient significant other to provide transportation home for patient at time of discharge. Support given. Will continue to follow to facilitate further discharge planning (set up walker and P.T.). Proposed discharge date: 10/19/18 PLAN: Discharge to home with significant other. ROSS AmadoW, PROFESSIONAL PROGRAMMER ANALYST
[2018-10-17 12:06] LABS: Intrinsic Factor Ab 1.2 AU/mL (0.0-1.1)
[2018-10-17 14:32] LABS: Factor VIII Activity 279 % (57-163)
--- NOTE | 2018-10-17 16:41 | PCM.PN.NEU ---
Patient Problems: Active and Suspected Problems (Last Reviewed 10/12/18 @ 11:35 by Carson Cm MD) DVT, bilateral lower limbs (Acute) Anemia (Acute) Closed right hip fracture (Acute) Subjective: Staffed in team meeting. Family at bedside, questions answered. With Physical therapy, he is stand by assist to get in and out of bed. He is able to walk 185 feet with a walker at stand by assist. He has gone up and down 8 steps using two handrails with a light hand for support. With Occupational therapy, He is able to do all his own personal care, he does require some assistance with lower body such as washing his feet and putting on socks and tying his shoes. With Nursing, his pain is controlled, he is sleeping in the bedside recliner, patient wishes. The blister on his right foot, dressing was changed today and it is healing nicely. The plan is to make him MOD I today with discharge on Friday 10/19 to home with outpatient Physical therapy. - Physical Exam General: Alert, Oriented x3, Cooperative HEENT: Atraumatic, PERRLA, EOMI, Normocephalic Neck: Supple, No JVD, Negative Carotid Bruits Lungs: Clear to auscultation, Normal air movement Cardiovascular: Regular rate, No murmurs Abdomen: Bowel Sounds Present, Soft, Non Tender Extremities: No edema, Capillary Refill Less than 3 Seconds Skin: No rashes, No breakdown Musculoskeletal: No Tenderness to Palpation of Joints or Extremities Neurological: Cranial nerves II-XII grossly intact Psych/Mental Status: Normal Affect, Appropriate, Alert and oriented to time, place, person, mood and affect Vital Signs Temp Pulse Resp BP Pulse Ox 97.8 F 60 16 123/72 H 96 10/17/18 07:50 10/17/18 07:50 10/17/18 07:50 10/17/18 07:50 10/17/18 07:50 Oxygen Flow Rate (L/min) 3 Oxygen Delivery Method Room Air Weight: 96.4 kg Body Mass Index (BMI) 30.9 Intake and Output for Last 24 Hours 10/15/18 10/16/18 10/17/18 23:59 23:59 23:59 Intake Total 600 / 600 720 / 720 660 / 660 Output Total 400 / 400 Balance 600 / 600 720 / 720 260 / 260 Laboratory Tests Past 24 Hrs 10/10/18 10:00 Factor VIII Activity 279 H von Willebrand Comment 323 H Intrinsic Factor Ab 1.2 H Factor II DNA Analysis Comment Active Medications Acetaminophen (Tylenol) 1,000 mg PO TID [facility] Last Admin: 10/17/18 13:45 Dose: 1,000 mg Apixaban (Eliquis) 5 mg PO BID [facility] Last Admin: 10/17/18 08:07 Dose: 5 mg Ascorbic Acid (Vitamin C) 1,000 mg PO DAILY [facility] Last Admin: 10/17/18 08:08 Dose: 1,000 mg Bisacodyl (Dulcolax) 10 mg RECTAL .PRN X 1 PRN PRN Reason: Constipation Calcium Carbonate (Tums) 1,000 mg PO Q4H PRN PRN PRN Reason: Gas Cholecalciferol (Vitamin D) 1,000 unit PO DAILY [facility] Last Admin: 10/17/18 08:08 Dose: 1,000 unit Fentanyl (Duragesic Patch) 12 mcg TRANSDERM. Q3D [facility] Last Admin: 10/15/18 11:57 Dose: 12 mcg Hydrochlorothiazide () 12.5 mg PO DAILY [facility] Losartan Potassium (Cozaar) 50 mg PO DAILY [facility] Magnesium Hydroxide (Milk Of Magnesia) 30 ml PO .PRN X 1 PRN PRN Reason: Constipation Nutritional Formula (Sebastian - [place] Flavor) [facility] Last Admin: 10/17/18 16:02 Dose: 1 packet Oxycodone HCl (Oxyir) 5 - 10 mg PO Q4H PRN PRN PRN Reason: PAIN Last Admin: 10/17/18 16:01 Dose: 10 mg Pantoprazole Sodium (Protonix) 20 mg PO DAILY [facility] Last Admin: 10/17/18 08:08 Dose: 20 mg Polyethylene Glycol (Miralax) 17 gm PO BID [facility] Last Admin: 10/17/18 08:06 Dose: Not Given Senna/Docusate Sodium (Senokot-S, Angela-Colace) 1 tablet PO BID [facility] Last Admin: 10/17/18 08:08 Dose: 1 tablet Medical Necessity - Tobacco Use Smoking Status: Current every day smoker Tobacco Use: Cigars, Chew Assessment/Plan All Active Problems (Last Reviewed 10/12/18 @ 11:35 by Carson Cm MD) DVT, bilateral lower limbs (Acute) Anemia (Acute) Closed right hip fracture (Acute) Debility status post Right ORIF with IM nailing. Goal of rehab is episcopal of prior level of functional independence. Plan: - Physical therapy for gait and balance - Occupational Therapy for ADLs - Speech therapy - As needed analgesics - Bowel protocol - DVT prophylaxis: SCDs, ASA 81 mg BID x i month, per Orthopedics team, - Hypertension: Stable with good control, continue home dose of Losartan - HCTZ - Post op anemia, (did not require blood transfusion) - resolved Hgb on discharge from [facility] was 11.6. - B/L TKA Incision site C/D/I, => healing nicely, steri strips are beginning to fall off, no redness or warmth noted around incision area. - Tobacco dependence counseled on cessation, offered nicotine patch for tobacco cravings, patient refused - NICOLE with CR 1.5 - has resolved, continue to monitor renal panel - Hematuria - recheck urine on admission - Weight bearing status => WBAT with full range of motion, quad isometrics but no straight leg raises or active abduction - Wound care => leave dressing intact, may shower, may remove opti-foam dressing in 7 - 10 days, leave prineo tape stripe for 2-3 weeks. - Incision site => The Dressing has small amount of bloody drainage, there is slight edema around the incision, with ecchymosis along the thigh and back of knee - Follow up appointment with Dr. Lima in 2-3 weeks, call to make an appointment - Acute chest pain - Negative Troponin x 3 and EKG with a regular rate and rhythm, with no abnormal wave form - B/L Doppler of lower extremity show multiple DVTs started on Eliquis dvt dosing. - Consult out to Vascular surgery, Hematology and obtain anticoagulation studies. - Start Lasix 20mg, hold HCTZ for the next three days, will re-evaluate edema and re-start HCTZ. - Hematology has seen patient would like to follow up in 3 to 4 months with a repeated B/L Venous Ultra Sound study, prior to appointment. Will schedule appointment prior to discharge home. - Blister on the right dorsal foot and lateral foot/ankle - Wound care nurse saw patient and drained both areas, and applied adaptic to site. Willem nicely, dressing changed today. - The plan is to make MOD I today with discharge home on Wednesday with outpatient Physical therapy.
--- NOTE | 2018-10-17 16:50 | PN.NEURO_ITS ---
Patient Problems: Active and Suspected Problems (Last Reviewed 10/12/18 @ 11:35 by Carson Cm MD) DVT, bilateral lower limbs (Acute) Anemia (Acute) Closed right hip fracture (Acute) Subjective: Staffed in team meeting. Family at bedside, questions answered. With Physical therapy, he is stand by assist to get in and out of bed. He is able to walk 185 feet with a walker at stand by assist. He has gone up and down 8 steps using two handrails with a light hand for support. With Occupational therapy, He is able to do all his own personal care, he does require some assistance with lower body such as washing his feet and putting on socks and tying his shoes. With Nursing, his pain is controlled, he is sleeping in the bedside recliner, patient wishes. The blister on his right foot, dressing was changed today and it is healing nicely. The plan is to make him MOD I today with discharge on Friday 10/19 to home with outpatient Physical therapy. - Physical Exam General: Alert, Oriented x3, Cooperative HEENT: Atraumatic, PERRLA, EOMI, Normocephalic Neck: Supple, No JVD, Negative Carotid Bruits Lungs: Clear to auscultation, Normal air movement Cardiovascular: Regular rate, No murmurs Abdomen: Bowel Sounds Present, Soft, Non Tender Extremities: No edema, Capillary Refill Less than 3 Seconds Skin: No rashes, No breakdown Musculoskeletal: No Tenderness to Palpation of Joints or Extremities Neurological: Cranial nerves II-XII grossly intact Psych/Mental Status: Normal Affect, Appropriate, Alert and oriented to time, place, person, mood and affect Vital Signs Temp Pulse Resp BP Pulse Ox 97.8 F 60 16 123/72 H 96 10/17/18 07:50 10/17/18 07:50 10/17/18 07:50 10/17/18 07:50 10/17/18 07:50 Oxygen Flow Rate (L/min) 3 Oxygen Delivery Method Room Air Weight: 96.4 kg Body Mass Index (BMI) 30.9 Intake and Output for Last 24 Hours 10/15/18 10/16/18 10/17/18 23:59 23:59 23:59 Intake Total 600 / 600 720 / 720 660 / 660 Output Total 400 / 400 Balance 600 / 600 720 / 720 260 / 260 Laboratory Tests Past 24 Hrs 10/10/18 10:00 Factor VIII Activity 279 H von Willebrand Comment 323 H Intrinsic Factor Ab 1.2 H Factor II DNA Analysis Comment Active Medications Acetaminophen (Tylenol) 1,000 mg PO TID [facility] Last Admin: 10/17/18 13:45 Dose: 1,000 mg Apixaban (Eliquis) 5 mg PO BID [facility] Last Admin: 10/17/18 08:07 Dose: 5 mg Ascorbic Acid (Vitamin C) 1,000 mg PO DAILY [facility] Last Admin: 10/17/18 08:08 Dose: 1,000 mg Bisacodyl (Dulcolax) 10 mg RECTAL .PRN X 1 PRN PRN Reason: Constipation Calcium Carbonate (Tums) 1,000 mg PO Q4H PRN PRN PRN Reason: Gas Cholecalciferol (Vitamin D) 1,000 unit PO DAILY [facility] Last Admin: 10/17/18 08:08 Dose: 1,000 unit Fentanyl (Duragesic Patch) 12 mcg TRANSDERM. Q3D [facility] Last Admin: 10/15/18 11:57 Dose: 12 mcg Hydrochlorothiazide () 12.5 mg PO DAILY [facility] Losartan Potassium (Cozaar) 50 mg PO DAILY [facility] Magnesium Hydroxide (Milk Of Magnesia) 30 ml PO .PRN X 1 PRN PRN Reason: Constipation Nutritional Formula (Sebastian - [place] Flavor) [facility] Last Admin: 10/17/18 16:02 Dose: 1 packet Oxycodone HCl (Oxyir) 5 - 10 mg PO Q4H PRN PRN PRN Reason: PAIN Last Admin: 10/17/18 16:01 Dose: 10 mg Pantoprazole Sodium (Protonix) 20 mg PO DAILY [facility] Last Admin: 10/17/18 08:08 Dose: 20 mg Polyethylene Glycol (Miralax) 17 gm PO BID [facility] Last Admin: 10/17/18 08:06 Dose: Not Given Senna/Docusate Sodium (Senokot-S, Angela-Colace) 1 tablet PO BID [facility] Last Admin: 10/17/18 08:08 Dose: 1 tablet Medical Necessity - Tobacco Use Smoking Status: Current every day smoker Tobacco Use: Cigars, Chew Assessment/Plan All Active Problems (Last Reviewed 10/12/18 @ 11:35 by Carson Cm MD) DVT, bilateral lower limbs (Acute) Anemia (Acute) Closed right hip fracture (Acute) Debility status post Right ORIF with IM nailing. Goal of rehab is sabianism of prior level of functional independence. Plan: - Physical therapy for gait and balance - Occupational Therapy for ADLs - Speech therapy - As needed analgesics - Bowel protocol - DVT prophylaxis: SCDs, ASA 81 mg BID x i month, per Orthopedics team, - Hypertension: Stable with good control, continue home dose of Losartan - HCTZ - Post op anemia, (did not require blood transfusion) - resolved Hgb on discharge from [facility] was 11.6. - B/L TKA Incision site C/D/I, => healing nicely, steri strips are beginning to fall off, no redness or warmth noted around incision area. - Tobacco dependence counseled on cessation, offered nicotine patch for tobacco cravings, patient refused - NICOLE with CR 1.5 - has resolved, continue to monitor renal panel - Hematuria - recheck urine on admission - Weight bearing status => WBAT with full range of motion, quad isometrics but no straight leg raises or active abduction - Wound care => leave dressing intact, may shower, may remove opti-foam dressing in 7 - 10 days, leave prineo tape stripe for 2-3 weeks. - Incision site => The Dressing has small amount of bloody drainage, there is slight edema around the incision, with ecchymosis along the thigh and back of knee - Follow up appointment with Dr. Lima in 2-3 weeks, call to make an appointment - Acute chest pain - Negative Troponin x 3 and EKG with a regular rate and rhythm, with no abnormal wave form - B/L Doppler of lower extremity show multiple DVTs started on Eliquis dvt dosing. - Consult out to Vascular surgery, Hematology and obtain anticoagulation studies. - Start Lasix 20mg, hold HCTZ for the next three days, will re-evaluate edema and re-start HCTZ. - Hematology has seen patient would like to follow up in 3 to 4 months with a repeated B/L Venous Ultra Sound study, prior to appointment. Will schedule appointment prior to discharge home. - Blister on the right dorsal foot and lateral foot/ankle - Wound care nurse saw patient and drained both areas, and applied adaptic to site. Willem nicely, dressing changed today. - The plan is to make MOD I today with discharge home on Wednesday with outpatient Physical therapy.
[2018-10-17 19:36] VITALS: BP 125/66; PULSE 72; RESP 18; TEMP 36.9; O2SAT 99
[2018-10-18] MEDS: oxyCODONE 5 MG Tablet PO ×3 (04:00→12:54)
[2018-10-18] MEDS: Acetaminophen 500 MG Tablet 1000 MG PO ×3 (05:32→21:57)
[2018-10-18] MEDS: Senna/Docusate Sodium 1 Tablet PO ×2 (08:18→21:57)
[2018-10-18] MEDS: hydroCHLOROthiazide 12.5mg 12.5 MG PO (08:18)
[2018-10-18] MEDS: Pantoprazole Sodium 20 MG Tablet PO (08:18)
[2018-10-18] MEDS: Ascorbic Acid 500 MG Tablet 1000 MG PO (08:18)
[2018-10-18] MEDS: APIXABAN 5 MG TABLET PO ×2 (08:19→21:56)
[2018-10-18] MEDS: Losartan Potassium 50 MG Tablet PO (08:19)
[2018-10-18 08:23] VITALS: BP 130/74; PULSE 68; RESP 18; TEMP 36.4; O2SAT 97
--- NOTE | 2018-10-18 09:46 | CASEMGMT ---
Social Work Telephone call to gabriela Escobar requesting a return phone call in regards to outpatient physical therapy appointment for patient. Telephone call to Mirian Montesinos. This social services counselor making referral for front wheeled walker. Order faxed. [facility]amel to deliver walker to patient room prior to patient discharge. Proposed discharge date: 10/19/18 PLAN: Discharge to home with fiance. ROSS AmadoW, CENTRAL OFFICE FRAME WIRER
--- NOTE | 2018-10-18 11:34 | NURSING ---
wound photo: right dorsal foot
--- NOTE | 2018-10-18 11:35 | NURSING ---
wound photo: right lateral foot/ankle
--- NOTE | 2018-10-18 11:51 | PCM.PN.NEU ---
Patient Problems: Active and Suspected Problems (Last Reviewed 10/12/18 @ 11:35 by Carson Cm MD) DVT, bilateral lower limbs (Acute) Anemia (Acute) Closed right hip fracture (Acute) - Physical Exam General: Alert, Oriented x3, Cooperative HEENT: Atraumatic, PERRLA, EOMI, Normocephalic Neck: Supple, No JVD, Negative Carotid Bruits Lungs: Clear to auscultation, Normal air movement Cardiovascular: Regular rate, No murmurs Abdomen: Bowel Sounds Present, Soft, Non Tender Extremities: No edema, Capillary Refill Less than 3 Seconds Skin: No rashes, No breakdown Musculoskeletal: No Tenderness to Palpation of Joints or Extremities Neurological: Cranial nerves II-XII grossly intact Psych/Mental Status: Normal Affect, Appropriate, Alert and oriented to time, place, person, mood and affect Vital Signs Temp Pulse Resp BP Pulse Ox 97.5 F L 68 18 130/74 H 97 10/18/18 08:23 10/18/18 08:23 10/18/18 08:23 10/18/18 08:23 10/18/18 08:23 Oxygen Flow Rate (L/min) 3 Oxygen Delivery Method Room Air Weight: 96.4 kg Body Mass Index (BMI) 30.9 Intake and Output for Last 24 Hours 10/16/18 10/17/18 10/18/18 23:59 23:59 23:59 Intake Total 720 / 720 920 / 920 260 / 260 Output Total 400 / 400 Balance 720 / 720 520 / 520 260 / 260 Laboratory Tests Past 24 Hrs 10/10/18 10:00 Factor VIII Activity 279 H von Willebrand Comment 323 H Intrinsic Factor Ab 1.2 H Factor II DNA Analysis Comment Active Medications Acetaminophen (Tylenol) 1,000 mg PO TID [facility] Last Admin: 10/18/18 05:32 Dose: 1,000 mg Apixaban (Eliquis) 5 mg PO BID [facility] Last Admin: 10/18/18 08:19 Dose: 5 mg Ascorbic Acid (Vitamin C) 1,000 mg PO DAILY [facility] Last Admin: 10/18/18 08:18 Dose: 1,000 mg Bisacodyl (Dulcolax) 10 mg RECTAL .PRN X 1 PRN PRN Reason: Constipation Calcium Carbonate (Tums) 1,000 mg PO Q4H PRN PRN PRN Reason: Gas Cholecalciferol (Vitamin D) 1,000 unit PO DAILY [facility] Last Admin: 10/18/18 08:18 Dose: 1,000 unit Fentanyl (Duragesic Patch) 12 mcg TRANSDERM. Q3D [facility] Last Admin: 10/15/18 11:57 Dose: 12 mcg Hydrochlorothiazide () 12.5 mg PO DAILY [facility] Last Admin: 10/18/18 08:18 Dose: 12.5 mg Losartan Potassium (Cozaar) 50 mg PO DAILY [facility] Last Admin: 10/18/18 08:19 Dose: 50 mg Magnesium Hydroxide (Milk Of Magnesia) 30 ml PO .PRN X 1 PRN PRN Reason: Constipation Nutritional Formula (Sebastian - [place] Flavor) 1 packet PO BIDCM [facility] Last Admin: 10/18/18 08:19 Dose: 1 packet Oxycodone HCl (Oxyir) 5 - 10 mg PO Q4H PRN PRN PRN Reason: PAIN Last Admin: 10/18/18 08:32 Dose: 10 mg Pantoprazole Sodium (Protonix) 20 mg PO DAILY [facility] Last Admin: 10/18/18 08:18 Dose: 20 mg Polyethylene Glycol (Miralax) 17 gm PO BID [facility] Last Admin: 10/18/18 08:24 Dose: Not Given Senna/Docusate Sodium (Senokot-S, Angela-Colace) 1 tablet PO BID [facility] Last Admin: 10/18/18 08:18 Dose: 1 tablet Medical Necessity - Tobacco Use Smoking Status: Current every day smoker Tobacco Use: Cigars, Chew Assessment/Plan All Active Problems (Last Reviewed 10/12/18 @ 11:35 by Carson Cm MD) DVT, bilateral lower limbs (Acute) Anemia (Acute) Closed right hip fracture (Acute) Debility status post Right ORIF with IM nailing. Goal of rehab is jewish of prior level of functional independence. Plan: - Physical therapy for gait and balance - Occupational Therapy for ADLs - Speech therapy - As needed analgesics - Bowel protocol - DVT prophylaxis: SCDs, ASA 81 mg BID x i month, per Orthopedics team, - Hypertension: Stable with good control, continue home dose of Losartan - HCTZ - Post op anemia, (did not require blood transfusion) - resolved Hgb on discharge from [facility] was 11.6. - B/L TKA Incision site C/D/I, => healing nicely, steri strips are beginning to fall off, no redness or warmth noted around incision area. - Tobacco dependence counseled on cessation, offered nicotine patch for tobacco cravings, patient refused - NICOLE with CR 1.5 - has resolved, continue to monitor renal panel - Hematuria - recheck urine on admission - Weight bearing status => WBAT with full range of motion, quad isometrics but no straight leg raises or active abduction - Wound care => leave dressing intact, may shower, may remove opti-foam dressing in 7 - 10 days, leave prineo tape stripe for 2-3 weeks. - Incision site => The Dressing has small amount of bloody drainage, there is slight edema around the incision, with ecchymosis along the thigh and back of knee - Follow up appointment with Dr. Lima in 2-3 weeks, call to make an appointment - Acute chest pain - Negative Troponin x 3 and EKG with a regular rate and rhythm, with no abnormal wave form - B/L Doppler of lower extremity show multiple DVTs started on Eliquis dvt dosing. - Consult out to Vascular surgery, Hematology and obtain anticoagulation studies. - Start Lasix 20mg, hold HCTZ for the next three days, will re-evaluate edema and re-start HCTZ. - Hematology has seen patient would like to follow up in 3 to 4 months with a repeated B/L Venous Ultra Sound study, prior to appointment. Will schedule appointment prior to discharge home. - Blister on the right dorsal foot and lateral foot/ankle - Wound care nurse saw patient and drained both areas, and applied adaptic to site. Willem nicely, dressing changed today. - The plan is to make MOD I today with discharge home on Wednesday with outpatient Physical therapy.
--- NOTE | 2018-10-18 13:36 | PN_ITS ---
Patient Problems: Active and Suspected Problems (Last Reviewed 10/12/18 @ 11:35 by Carson Cm MD) DVT, bilateral lower limbs (Acute) Anemia (Acute) Closed right hip fracture (Acute) Subjective: Patient was seen and examined. Complains of a 12 pound weight gain since admission. Complains of occasional cough but no orthopnea or PND although he sleeps in the chair. Patient does not like sleeping in the bed. Has worsening bilateral leg edema, with increased tightness of his thighs. Denies any dizziness or palpitations or shortness of breath. Vitals/I&O's: Vital Signs Temp Pulse Resp BP Pulse Ox 97.5 F L 68 18 130/74 H 97 10/18/18 08:23 10/18/18 08:23 10/18/18 08:23 10/18/18 08:23 10/18/18 08:23 Oxygen Flow Rate (L/min) 3 Oxygen Delivery Method Room Air Weight: 96.4 kg Body Mass Index (BMI) 30.9 Intake and Output for Last 24 Hours 10/16/18 10/17/18 10/18/18 23:59 23:59 23:59 Intake Total 720 / 720 920 / 920 260 / 260 Output Total 400 / 400 Balance 720 / 720 520 / 520 260 / 260 General: Alert, Oriented x3, Cooperative, No apparent distress HEENT: Atraumatic, PERRLA, EOMI, Normocephalic Oral: Moist Mucosa Neck: Supple, No JVD, Negative Carotid Bruits Lungs: Clear to auscultation, Normal air movement Cardiovascular: Regular rate, Regular Rhythm, Normal S1, Normal S2, No murmurs Abdomen: Bowel Sounds Present, Soft, Non Tender, Non-Distended, No Hepato- splenomegaly Extremities: Edema - +2-3, pitting up to upper thighs and sacral region Skin: - - Healing right incisional wounds with scabs Musculoskeletal: No Tenderness to Palpation of Joints or Extremities Lymphatic: No Cervical, Supraclavicular, or Inguinal Adenopathy Neurological: Cranial nerves II-XII grossly intact, Neuro grossly intact Psych/Mental Status: Normal Affect, Appropriate Laboratory Results 10/10/18 10:00: Factor VIII Activity 279 H, von Willebrand Comment 323 H, Intrinsic Factor Ab 1.2 H, Factor II DNA Analysis Comment Current Medications Acetaminophen (Tylenol) 1,000 mg PO TID [facility] Last Admin: 10/18/18 05:32 Dose: 1,000 mg Apixaban (Eliquis) 5 mg PO BID [facility] Last Admin: 10/18/18 08:19 Dose: 5 mg Ascorbic Acid (Vitamin C) 1,000 mg PO DAILY [facility] Last Admin: 10/18/18 08:18 Dose: 1,000 mg Bisacodyl (Dulcolax) 10 mg RECTAL .PRN X 1 PRN PRN Reason: Constipation Calcium Carbonate (Tums) 1,000 mg PO Q4H PRN PRN PRN Reason: Gas Cholecalciferol (Vitamin D) 1,000 unit PO DAILY [facility] Last Admin: 10/18/18 08:18 Dose: 1,000 unit Fentanyl (Duragesic Patch) 12 mcg TRANSDERM. Q3D [facility] Last Admin: 10/18/18 12:53 Dose: 12 mcg Hydrochlorothiazide () 12.5 mg PO DAILY [facility] Last Admin: 10/18/18 08:18 Dose: 12.5 mg Losartan Potassium (Cozaar) 50 mg PO DAILY [facility] Last Admin: 10/18/18 08:19 Dose: 50 mg Magnesium Hydroxide (Milk Of Magnesia) 30 ml PO .PRN X 1 PRN PRN Reason: Constipation Nutritional Formula ([facility]ebastian - [place] Flavor) [facility] Last Admin: 10/18/18 08:19 Dose: 1 packet Oxycodone HCl (Oxyir) 5 - 10 mg PO Q4H PRN PRN PRN Reason: PAIN Last Admin: 10/18/18 12:54 Dose: 10 mg Pantoprazole Sodium (Protonix) 20 mg PO DAILY [facility] Last Admin: 10/18/18 08:18 Dose: 20 mg Polyethylene Glycol (Miralax) 17 gm PO BID [facility] Last Admin: 10/18/18 08:24 Dose: Not Given Senna/Docusate Sodium (Senokot-S, Angela-Colace) 1 tablet PO BID [facility] Last Admin: 10/18/18 08:18 Dose: 1 tablet Medical Necessity - Tobacco Use Smoking Status: Current every day smoker Tobacco Use: Cigars, Chew Assessment/Plan All Active Problems (Last Reviewed 10/12/18 @ 11:35 by Carson Cm MD) DVT, bilateral lower limbs (Acute) Anemia (Acute) Closed right hip fracture (Acute) 67-year-old male with past medical history of hypertension tobacco dependence, obesity, who was admitted to the inpatient rehab with debility status post mechanical fall with resultant fracture and status post right ORIF with intramedullary nailing. 1. Edema, generalised, likely secondary to acute CHF exacerbation, unclear EF as no ECHO in our system. Reported 12 pound weight gain from his normal 205. Patient currently 218 in weight. Reported 5 pound weight gain over the last 1 week Recent BMP shows creatinine 1.07, will get new BMP, start patient on Lasix 40 mg IV x1, hold hydrochlorothiazide, continue Lasix 20 mg IV twice daily, on discharge patient should be discharged on Lasix and CHF protocol and follow-up with his primary care doctor within 1-2 weeks with his daily weights. 2. Bilateral lower extremity DVT, postoperatively, on Eliquis 3. Recent acute right hip fracture status post mechanical fall, status post ORIF with intramedullary nailing, doing well with PT and OT 4. Recent NICOLE, resolved 5. Recent hematuria, none since admission 6. Hypertension, controlled, continue with losartan 7. Nicotine dependence, advised to quit 8. DVT prophylaxis -on Eliquis for treatment of acute bilateral DVTs Code Visit Inpatient E&M: 53319 Subs Hosp L2
--- NOTE | 2018-10-18 14:30 | CASEMGMT ---
Social Work Telephone call from [facility]. Outpatient physical therapy appointment set up for 10/27/18 @ 2:00pm. Order faxed. Appointment reminder provided to patient. Patient agreeable to appointment time and date. Patient voicing no further needs. Support given. Proposed discharge date: 10/19/18 PLAN: Discharge to home with significant other and outpatient physical therapy. ZION Amado, VENDING MACHINE ASSEMBLER
--- NOTE | 2018-10-18 15:01 | ECHOD_ITS ---
Reason For Study: DYSPNEA/SOB Procedure This was a 2D Doppler, Color Flow transthoracic echocardiogram. The study was technically difficult. Due to patient lying supine due to recent hip surgery. Left Ventricle Normal LV size. Left ventricular systolic function is normal. The estimated ejection fraction is 65 %. No evidence for diastolic dysfunction. No regional wall motion abnormalities noted. Right Ventricle Normal RV size. Normal systolic function. Atria Normal left atrium. Normal right atrium. No doppler evidence for ASD. Mitral Valve There is no mitral annular calcification. Normal mitral valve. Trivial mitral valve insufficiency. Tricuspid Valve Normal tricuspid valve. Trivial tricuspid valve insufficiency. Right ventricular systolic pressure estimated to be 27 mmHg. Aortic Valve The aortic valve is not well visualized. Pulmonic Valve The pulmonic valve is not well visualized. Great Vessels Normal sized aortic root. Pericardium/Pleural No pericardial effusion. MMode/2D Measurements & Calculations LVIDd: 4.5 cm IVSd: 1.2 cm Ao root diam: 3.4 cm LVIDs: 3.3 cm LVPWd: 1.2 cm RVDd: 3.6 cm FS: 28.2 % LAV(MOD-bp): 56.6 ml LA A4 area: 19.9 cm2 LA dimension(2D): 3.6 cm LAV(MOD-bp) Indexed: 26.7 ml/m2 LAV(MOD-sp2): 56.3 ml LAV(MOD-sp4): 56.6 ml RA A4 area: 14.2 cm2 Time Measurements MV dec time: 0.26 sec Doppler Measurements & Calculations MV E max seb: 115.1 cm/sec Lat Peak E' Seb: 13.5 cm/sec Med Peak E' Seb: 10.9 cm/sec MV A max seb: 109.2 cm/sec E/E' lat: 8.5 E/E' med: 10.5 MV E/A: 1.1 Ao V2 max: 162.6 cm/sec LV V1 max: 116.2 cm/sec TR max seb: 246.0 cm/sec Ao max P.6 mmHg LV V1 max P.4 mmHg TR max P.2 mmHg Interpretation Summary The study was technically difficult. Left ventricular systolic function is normal. The estimated ejection fraction is 65 %. Trivial mitral valve insufficiency. Trivial tricuspid valve insufficiency. Right ventricular systolic pressure estimated to be 27 mmHg. No evidence for diastolic dysfunction. Ordering Physician: Shilpi Nelson Referring Physician: Pepito Angelo Performed By: Randa Haile, ERLIN, RVT
[2018-10-18 15:59] LABS: Anion Gap 6 (5-15); BUN 28 mg/dL (7-18); BUN/Creat Ratio 24.3 RATIO (10-20); Calcium,Total 8.7 mg/dL (8.5-10.1); Chloride 104 mmol/L (98-107); Creatinine, Serum 1.15 mg/dL (0.70-1.30); EST Glomerular Filtration Rate 68 mL/min (>60); Est Glom Filt Rate - Afr Amer 82 mL/min (>60); Estimated Creatinine Clearance 64.04 ml/min; Glucose 113 mg/dL (74-106); Potassium 3.9 mmol/L (3.5-5.1); Sodium Level 139 mmol/L (136-145)
[2018-10-18] MEDS: Furosemide 40 MG/4 ML Vial IV (16:23)
[2018-10-18 19:37] VITALS: BP 103/61; PULSE 77; RESP 17; TEMP 36.8; O2SAT 96
[2018-10-19] MEDS: Acetaminophen 500 MG Tablet 1000 MG PO (05:07)
[2018-10-19 06:24] LABS: Anion Gap 8 (5-15); BUN 29 mg/dL (7-18); BUN/Creat Ratio 27.9 RATIO (10-20); Calcium,Total 8.9 mg/dL (8.5-10.1); Chloride 105 mmol/L (98-107); Creatinine, Serum 1.04 mg/dL (0.70-1.30); EST Glomerular Filtration Rate 76 mL/min (>60); Est Glom Filt Rate - Afr Amer 92 mL/min (>60); Estimated Creatinine Clearance 70.81 ml/min; Glucose 100 mg/dL (74-106); Potassium 3.8 mmol/L (3.5-5.1); Sodium Level 141 mmol/L (136-145)
[2018-10-19 08:53] VITALS: BP 106/64; PULSE 68; RESP 18; TEMP 36.6; O2SAT 94
[2018-10-19] MEDS: Ascorbic Acid 500 MG Tablet 1000 MG PO (09:12)
[2018-10-19] MEDS: Senna/Docusate Sodium 1 Tablet PO (09:12)
[2018-10-19] MEDS: Pantoprazole Sodium 20 MG Tablet PO (09:12)
[2018-10-19] MEDS: APIXABAN 5 MG TABLET PO (09:13)
[2018-10-19 09:21] LABS: AST(SGOT) 17 U/L (15-37); Alanine Aminotransfer ALT/SGPT 22 U/L (16-61); Albumin, Serum 2.9 g/dL (3.2-5.0); Alkaline Phosphatase 129 U/L (45-117); Globulin 3.2 g/dL (2.2-4.2); Protein, Total 6.1 g/dL (6.4-8.2)
--- NOTE | 2018-10-19 10:09 | DS.PCM_ITS ---
Rehab Discharge Summary DATE OF ADMISSION: 10/04/18 DATE OF DISCHARGE: 10/19/18 - Rehab Diagnosis Right Hip Fracture Patient Problems: Active and Suspected Problems (Last Reviewed 10/12/18 @ 11:35 by Carson Cm MD) DVT, bilateral lower limbs (Acute) Anemia (Acute) Closed right hip fracture (Acute) - Physical Exam General: Alert, Oriented x3, Cooperative HEENT: Atraumatic, PERRLA, EOMI, Normocephalic Neck: Supple, No JVD, Negative Carotid Bruits Lungs: Clear to auscultation, Normal air movement Cardiovascular: Regular rate, No murmurs Abdomen: Bowel Sounds Present, Soft, Non Tender Extremities: No edema, Capillary Refill Less than 3 Seconds Skin: No rashes, No breakdown Musculoskeletal: No Tenderness to Palpation of Joints or Extremities Neurological: Cranial nerves II-XII grossly intact Psych/Mental Status: Normal Affect, Appropriate, Alert and oriented to time, place, person, mood and affect Vital Signs Temp Pulse Resp BP Pulse Ox 98 F 68 18 106/64 94 10/19/18 08:53 10/19/18 08:53 10/19/18 08:53 10/19/18 08:53 10/19/18 08:53 Oxygen Flow Rate (L/min) 3 Oxygen Delivery Method Room Air Weight: 98.883 kg Body Mass Index (BMI) 30.9 Intake and Output for Last 24 Hours 10/17/18 10/18/18 10/19/18 23:59 23:59 23:59 Intake Total 920 / 920 500 / 500 Output Total 400 / 400 Balance 520 / 520 500 / 500 Laboratory Tests Past 24 Hrs 10/18/18 10/19/18 10/19/18 15:20 05:40 05:40 Sodium 139 141 Potassium 3.9 3.8 Chloride 104 105 Carbon Dioxide 29.0 28.0 Anion Gap 6 8 BUN 28 H 29 H Creatinine 1.15 1.04 Estim Creat Clear Calc 64.04 70.81 Est GFR (MDRD) Af Amer 82 92 Est GFR (MDRD) Non-Af 68 76 BUN/Creatinine Ratio 24.3 H 27.9 H Glucose 113 H 100 Calcium 8.7 8.9 Total Bilirubin 0.60 Direct Bilirubin 0.20 AST 17 ALT 22 Alkaline Phosphatase 129 H Total Protein 6.1 L Albumin 2.9 L Globulin 3.2 Active Medications Acetaminophen (Tylenol) 1,000 mg PO TID [facility] Last Admin: 10/19/18 05:07 Dose: 1,000 mg Apixaban (Eliquis) 5 mg PO BID [facility] Last Admin: 10/19/18 09:13 Dose: 5 mg Ascorbic Acid (Vitamin C) 1,000 mg PO DAILY [facility] Last Admin: 10/19/18 09:12 Dose: 1,000 mg Bisacodyl (Dulcolax) 10 mg RECTAL .PRN X 1 PRN PRN Reason: Constipation Calcium Carbonate (Tums) 1,000 mg PO Q4H PRN PRN PRN Reason: Gas Cholecalciferol (Vitamin D) 1,000 unit PO DAILY [facility] Last Admin: 10/19/18 09:12 Dose: 1,000 unit Fentanyl (Duragesic Patch) 12 mcg TRANSDERM. Q3D [facility] Last Admin: 10/18/18 12:53 Dose: 12 mcg Furosemide (Lasix) 20 mg PO BID@1000,1800 [facility] Losartan Potassium (Cozaar) 50 mg PO DAILY [facility] Last Admin: 10/19/18 09:10 Dose: Not Given Magnesium Hydroxide (Milk Of Magnesia) 30 ml PO .PRN X 1 PRN PRN Reason: Constipation Nutritional Formula (Sebastian - [place] Flavor) 1 packet PO BIDCM [facility] Last Admin: 10/19/18 09:12 Dose: 1 packet Oxycodone HCl (Oxyir) 5 - 10 mg PO Q4H PRN PRN PRN Reason: PAIN Last Admin: 10/18/18 12:54 Dose: 10 mg Pantoprazole Sodium (Protonix) 20 mg PO DAILY [facility] Last Admin: 10/19/18 09:12 Dose: 20 mg Polyethylene Glycol (Miralax) 17 gm PO BID [facility] Last Admin: 10/19/18 09:10 Dose: Not Given Potassium Chloride (K-Dur) [facility] Senna/Docusate Sodium (Senokot-S, Angela-Colace) 1 tablet PO BID [facility] Last Admin: 10/19/18 09:12 Dose: 1 tablet Discharge Diet: No Restrictions Discharge Activity: May Not Drive, May not drive while taking narcotic pain medications., May Shower, Use Walker, - - Do not Soak in a Tub Bath until cleared by surgeron Weight Bearing Status: Weight bearing as tolerated Keep extremity elevated above heart level: Right Leg Call your doctor if your incision/area has: Increased Pain/ Swelling, Increased Redness, Foul Smelling Discharge, Swelling at the incision site Call your doctor if you observe: Fever of 101 or Higher, Coldness, Increased Pain, Numbness or Tingling, Change in Color, Inability to urinate, Inability to have a bowel movement, Using more than one pad per hour, Shortness of breath, Dizziness, Fainting spells, Swelling in the ankles, Chest pain, Prolonged hiccoughing, Increased palpitations (irregular heartbeat), Calf discomfort, Uncontrolled pain Home Medications: Medications to take at Discharge Ascorbic Acid [C-1000] 1,000 mg PO DAILY 10/04/18 Cholecalciferol (VIT D3) [Vitamin D3] 1,000 unit PO DAILY 10/04/18 Apixaban [Eliquis] 5 mg PO BID #60 tablet 10/19/18 Furosemide [Lasix] 20 mg PO BID@1000,1800 #60 tablet 10/19/18 Losartan Potassium [Cozaar] 50 mg PO DAILY #30 tablet 10/19/18 Nutritional Supplement [Sebastian - [place] FLAVOR] 1 packet PO BIDCM #120 packet 10/19/18 Oxycodone [Oxyir] 5 - 10 mg PO Q4H PRN PRN 7 Days #28 tab 10/19/18 Pantoprazole Sodium [Protonix] 20 mg PO DAILY #30 tablet 10/19/18 Potassium Chloride [K-Dur] 20 meq PO DAILYCM #30 tablet 10/19/18 fentaNYL patch [Duragesic Patch] 12 mcg TRANSDERM. Q3D 6 Days #2 patch 10/19/18 Following Prescrptions Were Given to Patient: Oxycodone [Oxyir] 5 - 10 mg PO Q4H PRN PRN 7 Days #28 tab PRN Reason: Pain fentaNYL patch [Duragesic Patch] 12 mcg TRANSDERM. Q3D 6 Days #2 patch Furosemide [Lasix] 20 mg PO BID@1000,1800 #60 tablet Losartan Potassium [Cozaar] 50 mg PO DAILY #30 tablet Pantoprazole Sodium [Protonix] 20 mg PO DAILY #30 tablet Potassium Chloride [K-Dur] 20 meq PO DAILYCM #30 tablet Apixaban [Eliquis] 5 mg PO BID #60 tablet Nutritional Supplement [Sebastian - [place] FLAVOR] 1 packet PO BIDCM #120 packet Primary Care Physician: Shun Estrella [Primary Care Provider] - Please Follow Up With: Dr. Carson Cm MD Please Follow Up With: [facility] - Outpatient physical thearpy When: Please Follow Up With: Shun Estrella Disposition: Home Minutes spent on discharge:: 40 Patient Condition:: Good Rehab Course The patient is a 67 year old right handed male, who was admitted to the rehab unit for rehabilitation after suffering a Mechanical fall from standing. He has a PMH of Hypertension and is on Losartan-HCTZ at home. He under went an ORIF of the right hip with IM nailing by Dr. Terry at [facility] on 09/28/18, postoperative course was uneventful except for low blood pressure during his hospital stay, his BP medication was held. On admission here, his blood pressure is 129/78. Weight bearing status is as tolerated with full range of motion, quad isometrics but no straight leg raises or active abduction. He lives with his girlfriend in a single story home with 3 steps to get into the house. He was previously completely functionally independent and is admitted to the rehab unit in order to restore his previous level of functional independence. Summary of Care: - Physical therapy for gait and balance - Occupational Therapy for ADLs - Speech therapy - As needed analgesics - Bowel protocol - DVT prophylaxis: SCDs, ASA 81 mg BID x i month, per Orthopedics team, - Hypertension: Stable with good control, continue home dose of Losartan - HCTZ - Post op anemia, (did not require blood transfusion) - resolved Hgb on discharge from [facility] was 11.6. - B/L TKA Incision site C/D/I, => healing nicely, steri strips are beginning to fall off, no redness or warmth noted around incision area. - Tobacco dependence counseled on cessation, offered nicotine patch for tobacco cravings, patient refused - NICOLE with CR 1.5 - has resolved, continue to monitor renal panel - Hematuria - recheck urine on admission - Weight bearing status => WBAT with full range of motion, quad isometrics but no straight leg raises or active abduction - Wound care => leave dressing intact, may shower, may remove opti-foam dressing in 7 - 10 days, leave prineo tape stripe for 2-3 weeks. - Incision site => The Dressing has small amount of bloody drainage, there is slight edema around the incision, with ecchymosis along the thigh and back of knee - Follow up appointment with Dr. Lima in 2-3 weeks, call to make an appointment - Acute chest pain - Negative Troponin x 3 and EKG with a regular rate and rhythm, with no abnormal wave form - B/L Doppler of lower extremity show multiple DVTs started on Eliquis dvt dosing. - Consult out to Vascular surgery, Hematology and obtain anticoagulation studies. - Start Lasix 20mg, hold HCTZ for the next three days, will re-evaluate edema and re-start HCTZ. - Hematology has seen patient would like to follow up in 3 to 4 months with a repeated B/L Venous Ultra Sound study, prior to appointment. Will schedule appointment prior to discharge home. - Blister on the right dorsal foot and lateral foot/ankle - Wound care nurse saw patient and drained both areas, and applied adaptic to site. Willem nicely, dressing changed today. - The plan is to make MOD I today with discharge home on Wednesday with outpatient Physical therapy. Summary of Therapy Sessions: With Physical therapy, he is stand by assist to get in and out of bed. He is able to walk 185 feet with a walker at stand by assist. He has gone up and down 8 steps using two handrails with a light hand for support. With Occupational therapy, He is able to do all his own personal care, he does require some assistance with lower body such as washing his feet and putting on socks and tying his shoes. With Nursing, his pain is controlled, he is sleeping in the bedside recliner, patient wishes. The blister on his right foot, dressing was changed today and it is healing nicely. The plan is to make him MOD I today with discharge on Friday 10/19 to home with outpatient Physical therapy. Meaningful Use Info Meaningful Use Diagnoses (Choose all that apply): None applicable
[2018-10-19 10:13] VITALS: BP 106/64; PULSE 98; RESP 16; TEMP 36.6; O2SAT 94
--- NOTE | 2018-10-19 10:13 | DCINST_ITS ---
- Discharge Diagnoses Current Active Problems: Current Active and Chronic Problems (Last Reviewed 10/12/18 @ 11:35 by Carson Cm MD) DVT, bilateral lower limbs (Acute) Anemia (Acute) Closed right hip fracture (Acute) Hypertension (Chronic) Reason(s) for Visit for Discharge Instructions: Right Hip Fracture You will use the following diet at home:: Cardiac Your food should be the consistency of: Regular Your liquids should be the consistency of: Regular/Thin Discharge Activity: May Not Drive, May not drive while taking narcotic pain medications., May Shower, Use Walker, - - Do not Soak in a Tub Bath until doretha ared by surgeron Weight Bearing Status: Weight bearing as tolerated Keep extremity elevated above heart level: Right Leg Call your doctor if your incision/area has: Increased Pain/ Swelling, Increased Redness, Foul Smelling Discharge, Swelling at the incision site Call your doctor if you observe: Fever of 101 or Higher, Coldness, Increased Pain, Numbness or Tingling, Change in Color, Inability to urinate, Inability to have a bowel movement, Using more than one pad per hour, Shortness of breath, Dizziness, Fainting spells, Swelling in the ankles, Chest pain, Prolonged hiccoughing, Increased palpitations (irregular heartbeat), Calf discomfort, Uncontrolled pain Allergies/Adverse Reactions: Allergies No Known Allergies Allergy (Verified 09/11/18 12:03) Medications to take at Discharge Ascorbic Acid [C-1000] 1,000 mg PO DAILY 10/04/18 Cholecalciferol (VIT D3) [Vitamin D3] 1,000 unit PO DAILY 10/04/18 Apixaban [Eliquis] 5 mg PO BID #60 tablet 10/19/18 Furosemide [Lasix] 20 mg PO BID@1000,1800 #60 tablet 10/19/18 Losartan Potassium [Cozaar] 50 mg PO DAILY #30 tablet 10/19/18 Nutritional Supplement [Sebastian - ORANGE FLAVOR] 1 packet PO BIDCM #120 packet 10/19/18 Oxycodone [Oxyir] 5 - 10 mg PO Q4H PRN PRN 7 Days #28 tab 10/19/18 Pantoprazole Sodium [Protonix] 20 mg PO DAILY #30 tablet 10/19/18 Potassium Chloride [K-Dur] 20 meq PO DAILYCM #30 tablet 10/19/18 fentaNYL patch [Duragesic Patch] 12 mcg TRANSDERM. Q3D 6 Days #2 patch 10/19/18 The following prescriptions were given: Oxycodone [Oxyir] 5 - 10 mg PO Q4H PRN PRN 7 Days #28 tab PRN Reason: Pain fentaNYL patch [Duragesic Patch] 12 mcg TRANSDERM. Q3D 6 Days #2 patch Furosemide [Lasix] 20 mg PO BID@1000,1800 #60 tablet Losartan Potassium [Cozaar] 50 mg PO DAILY #30 tablet Pantoprazole Sodium [Protonix] 20 mg PO DAILY #30 tablet Potassium Chloride [K-Dur] 20 meq PO DAILYCM #30 tablet Apixaban [Eliquis] 5 mg PO BID #60 tablet Nutritional Supplement [Sebastian - ORANGE FLAVOR] 1 packet PO BIDCM #120 packet Primary Care Physician: Shun Estrella [Primary Care Provider] - Test Results: Test results from this visit will be discussed in further detail at your follow- up appointment, if applicable. Please Follow Up With: Dr. Carson Cm MD Please Follow Up With: [facility] - Outpatient physical thearpy When: Please Follow Up With: Shun Estrella Proposed Discharge Date: 10/19/18
[2018-10-19] MEDS: Furosemide 40 MG Tablet PO (11:46)
--- NOTE | 2018-10-19 13:51 | NURSING ---
Discharged pt home with ex-/ girlfriend went over DC instruction, medications and appts. answered all questions asked by girlfriend and exwife. Both verbalized understanding of medications and dressing change to R. foot. Demonstrated how to wrap ble. Girlfriend wrapped LLE with acewrap RN wrapped RLE. Pt discharged home with all personal belonging, in stable condition.
== END 2018-10-19 14:02 | disposition home or self-care (01) | DRG 560 ==
PROVIDERS: Family Medicine; Hospitalist; Nurse Practitioner Acute Care; Admitting Provider Psychiatry & Neurology Neurology; Referring Provider Psychiatry & Neurology Neurology; Visit Provider Internal Medicine
DX: S72.001D Fracture of unspecified part of neck of right femur, subsequent encounter for closed fracture with routine healing (principal); I82.403 Acute embolism and thrombosis of unspecified deep veins of lower extremity, bilateral; Z96.653 Presence of artificial knee joint, bilateral; I10 Essential (primary) hypertension; F17.290 Nicotine dependence, other tobacco product, uncomplicated; K59.00 Constipation, unspecified; W18.30XA Fall on same level, unspecified, initial encounter; F17.220 Nicotine dependence, chewing tobacco, uncomplicated; S90.821A Blister (nonthermal), right foot, initial encounter; X58.XXXA Exposure to other specified factors, initial encounter; D64.9 Anemia, unspecified
CPT/HCPCS: 36415; 80048; 80076; 81001; 81240; 83735; 84100; 84484; 85027; 85240; 85245; 86340; 93005; 93306; 93970; 97110; 97116; 97162; 97166; 97530; 97535; 97802; 99406; Q9957; A4216; J1940

== ENCOUNTER → 2018-11-17 13:54 | Outpatient (CLI) | payer MEDICARE, OTHER, SELFPAY ==
[2018-10-04 13:18] VITALS: BMI 30.9
--- NOTE | 2018-11-17 14:00 | BD_ITS ---
STUDY: DUAL ENERGY X-RAY ABSORPTIOMETRY / DXA REASON FOR EXAM: Male, 67 years old. Pathological femoral fracture. Loss of height. TECHNIQUE: Bone Mineral Density (BMD) measurements of lumbar spine and left hip were obtained. COMPARISON: None. FINDINGS: Lumbar Spine (L1-L4): g/cm2 (0.952) / T-score (-2.1) / Z-score (-1.7) Findings are suggestive of osteopenia with a moderate fracture risk. Increased kyphosis. Left Femur Total: g/cm2 (0.879) / T-score (-1.5) / Z-score (-1.0) Left Femoral Neck: g/cm2 (0.826) / T-score (-1.9) / Z-score (-0.8) BD/Dexa Bone Density Study IMPRESSION: The patient is considered osteopenic as outlined below according to World Ajay Organization (WHO) criteria with a moderate fracture risk Reference Information: The T-score is the number of standard deviations above or below the standard which is normal for young adults at their peak bone mineral density. The World Health Organization (WHO) interprets the T-scores as follows: Above -1 Normal bone density Between -1 and -2.5 Osteopenia Equal to / or below -2.5 Osteoporosis As a practical clinical guideline, osteopenia may be graded as follows: Mild -1 through -1.5 Moderate -1.6 through -2.0 Severe -2.1 through -2.4 The Z-score is the number of standard deviations above or below age-matched controls. A Z-score of less than -1.5 would be considered abnormal. References: 1. NIH Osteoporosis and Related Bone Diseases http://www.osteo.org 2. International Society for Clinical Densitometry http://www.iscd.org 3. National Osteoporosis Foundation http://www.nof.org Electronically Signed: Aravind Foy MD at 15:28 EST Tel [phone], Service support ,
== END ==
DX: M84.453A Pathological fracture, unspecified femur, initial encounter for fracture (principal)
CPT/HCPCS: 77080

== ENCOUNTER 2019-11-22 09:15 | Emergency (ER) | payer MEDICARE, OTHER, SELFPAY ==
[2018-10-04 13:18] VITALS: BMI 30.9
[2019-11-22 09:16] VITALS: BP 147/90; PULSE 67; RESP 17; TEMP 36.8; O2SAT 97; BMI 30.3
--- NOTE | 2019-11-22 09:23 | RAD_ITS ---
STUDY: X-RAY CHEST REASON FOR EXAM: Male, 68 years old. CHEST PAIN, DISCOMFORT TECHNIQUE: Single AP portable view of the chest. COMPARISON: None. FINDINGS: EKG electrodes are seen. Scattered calcified granulomas. Minimal increased markings at the left lung base suggestive of left basilar atelectasis and/or scarring. There is no demonstrated pleural abnormality. There is borderline cardiomegaly. Normal mediastinum and raysa. Normal visualized pulmonary arteries. There is atherosclerotic tortuosity of the aortic arch and descending thoracic aorta. There are diffuse degenerative changes of the visualized thoracic spine. Normal visualized ribs, clavicles, and shoulders. There is no demonstrated abnormality of the visualized soft tissue structures of the upper abdomen. RAD/Chest 1 View (Portable) IMPRESSION: Mild increased markings at the left lung base suggestive of underlying atelectasis and/or scarring. Electronically Signed: Aravind Foy, at 9:44 EST , Service support ,
--- NOTE | 2019-11-22 09:23 | EKG12_ITS ---
Test Reason : CP Blood Pressure : / mmHG Vent. Rate : 061 BPM Atrial Rate : 061 BPM P-R Int : 212 ms QRS Dur : 078 ms QT Int : 378 ms P-R-T Axes : 010 -14 -06 degrees QTc Int : 380 ms Sinus rhythm with 1st degree A-V block Septal infarct , age undetermined Inferior infarct , age undetermined Abnormal ECG Confirmed by TERRY ROCA, ULYSSES ([id number]), news video editor LULU RICHEY ([id number]) on 11/24/2019 10:00:32 AM Referred By: HEIDI Confirmed By:STAN STEWART MD
--- NOTE | 2019-11-22 09:32 | ED.DCSUM_ITS ---
- ER Visit Summary Date of Service: 11/22/19 Chief Complaint: Chest pain History of Present Illness: The patient is a 68 M who presents with chest pain. He states 2 and half hours ago he felt a weird sensation in his chest. He felt like it was a pounding right in the middle. Nothing really made it better or worse. He was short of breath when this happened but he has since improved. He denies any cough. He states he has not felt well for the past couple of days. He has no history of any cardiac disease. He has no stents. He does have a strong family history of early cardiac disease. He is a smoker. He also has hypertension. Physical Examination: Vital signs reviewed. HEENT exam unremarkable. Heart is regular rate and rhythm without murmurs. Lungs are clear to auscultation. Abdomen is soft and nontender. Extremities reveal no edema. Peripheral pulses are equal. Skin exam normal. Neurologic exam normal. Test Results: EKG is normal sinus rhythm with rate of 61. No ST changes. Unchanged from previous. X-ray has chronic changes with no acute infiltrates. Labs are unremarkable. Emergency Department Course and Treatment: Patient has normal troponin. He was given aspirin here. His MARKUS score is 2 for age and risk factors. I do not feel that this is cardiac as the story is not very good for any acute coronary issue. He has no pneumonia. He feels improved. Vital signs normal. I will give him an albuterol inhaler at home since he is a smoker and has COPD. He will call his doctor today for follow-up Treatment Plan: [] Disposition: Discharge Impression: Chest pain This note was generated with FloQast dictation software. It may contain incorrect words, spelling, and punctuation that were not noted in review of the chart prior to signing ED Disposition - Plan for ED Patient: Disposition: Home or Assisted Living Instructions: CHEST PAIN, Uncertain Cause Prescriptions: Albuterol Inhaler [Ventolin Hfa] 1 - 2 puff INHALATION Q4H PRN PRN #1 inhaler PRN Reason: Wheezing Transmission Status: Pending to [id number] Referrals: Shun Estrella [Primary Care Provider] - Additional Instructions: Your prescription was transmitted to [facility]
[2019-11-22 09:44] LABS: Absolute Lymphocyte Count 2.08 X10^3/uL (0.83-4.51); Absolute Neutrophil Count 6.2 X10^3/uL (2.0-7.7); Basophil# 0.05 X10^3/uL; Basophil% 0.6 % (0-1); Eosinophils% 1.1 % (0-5); Hematocrit 48.5 % (40-54); Hemoglobin 16.3 g/dL (13.0-16.5); Lymphocyte # 2.08 X10^3/ul (4.0); Lymphocyte % 23.1 % (19-41); Mean Corp Hgb Conc 33.6 g/dL (32-36); Mean Corpuscular Hgb 30.1 pg (27.0-32.0); Mean Corpuscular Volume 89.5 fL (80-94); Mean Platelet Vol. 9.2 fl (6.2-12.0); Monocyte# 0.57 X10^3/uL; Monocyte% 6.3 % (0-10); NRBC Flagged by Analyzer 0 % (0-5); Neutrophil # 6.16 X10^3/uL (2.7-7.7); Neutrophil % 68.2 % (47-70); Platelet Count 190 K/mm3 (150-450); RBC Distribution Width CV 12.3 % (11.6-14.6); RBC Distribution Width SD 40.2 fl (35.1-43.9); Red Blood Count 5.42 M/mm3 (4.6-6.2)
[2019-11-22] MEDS: Aspirin 81 MG TAB.CHEW 324 MG PO (10:01)
[2019-11-22 10:04] LABS: Anion Gap 3 (5-15); BUN 17 mg/dL (7-18); BUN/Creat Ratio 15.5 RATIO (10-20); Calcium,Total 9.3 mg/dL (8.5-10.1); Chloride 109 mmol/L (98-107); EST Glomerular Filtration Rate 71 mL/min (>60); Est Glom Filt Rate - Afr Amer 86 mL/min (>60); Estimated Creatinine Clearance 61.76 ml/min; Glucose 101 mg/dL (74-106); Potassium 3.9 mmol/L (3.5-5.1); Sodium Level 142 mmol/L (136-145)
[2019-11-22 10:12] VITALS: BP 131/86; PULSE 60; RESP 16; O2SAT 96
[2019-11-22 10:46] VITALS: BP 135/85; PULSE 58; RESP 17; O2SAT 97
--- NOTE | 2019-11-22 10:46 | ED.RN ---
IV DC'ED, CATHETER INTACT, SMALL GAUZE DRESSING PLACED. DISCHARGE INSTRUCTIONS GIVEN TO AND REVIEWED WITH PATIENT, PATIENT DENIES QUESTIONS OR CONCERNS AND VOICES UNDERSTANDING OF DISCHARGE INSTRUCTIONS. PT AMBULATES OUT OF ROOM WITHOUT DIFFICULTY.
== END 2019-11-22 10:47 | disposition home or self-care (01) ==
PROVIDERS: Emergency Provider Emergency Medicine
DX: R07.9 Chest pain, unspecified (principal); I10 Essential (primary) hypertension; F17.200 Nicotine dependence, unspecified, uncomplicated; Z79.82 Long term (current) use of aspirin; Z79.899 Other long term (current) drug therapy
CPT/HCPCS: 71045; 80048; 84484; 85025; 93005; 99285; A4216

== ENCOUNTER 2020-08-12 09:20 | Emergency (ER) | payer MEDICARE, OTHER, SELFPAY ==
[2020-08-12 09:22] VITALS: BP 137/85; PULSE 64; RESP 17; TEMP 36.2; O2SAT 97; BMI 30.1
--- NOTE | 2020-08-12 09:32 | RAD_ITS ---
STUDY: X-RAY - LEFT FOOT CLINICAL: Male, 69 years old. left foot and leg pain x several days -- NKI TECHNIQUE: 3 view(s) of the foot. COMPARISON: None. FINDINGS: Normal talus, calcaneus, and tarsal bones. Normal visualized subtalar, talonavicular, calcaneocuboid, tarsal and tarsometatarsal articulations. Normal metatarsi. Normal metatarsophalangeal joint of the great toe. Normal tibial and fibular sesamoid bones. Normal interphalangeal joint of the great toe. Normal phalanges of the great toe. Normal second through fifth metatarsophalangeal joints. Normal interphalangeal joints and phalanges of the lesser toes. The soft tissue structures are unremarkable. RAD/Foot min 3 Views IMPRESSION: Normal x-ray examination of the foot. Electronically Signed: Allen Love, at 10:37 EDT Tel , Service support ,
--- NOTE | 2020-08-12 09:33 | VDLE_ITS ---
Reason For Study: Pain Procedure LEFT Exam performed portable in ED. GSV is normal. This is a venous duplex using B-mode, color CFV is compressible, spontaneous, phasic, flow and spectral Doppler. competent, and demonstrates normal A preliminary report was called and/or faxed augmentation. to [facility]. FV is compressible, spontaneous, phasic, competent and demonstrates normal augmentation. POP V is compressible, spontaneous, phasic, competent and demonstrates normal augmentation. T/P Trunk is compressible. PTV is compressible. LT PerV is compressible. Interpretation Summary There is no evidence of left lower extremity deep vein thrombosis. Left great saphenous vein appears patent and compressible segmentally. Ordering Physician: Sarah Bryant Referring Physician: Shun Estrella Performed By: Nelly Dotson RVT
--- NOTE | 2020-08-12 09:33 | ED.VIS.GEN ---
History of Present Illness Chief Complaint: Lower Extremity Injury Informant: Patient Onset: Days - 3 days Current Severity: Mild Maximum Severity: Moderate Narrative: Patient presents with pain in the left foot rating to the left calf. He noted the pain 2 days ago. He states he has been moving and going up and down steps a lot the last couple of weeks. He does not remember specific injury. Patient does have a history of bilateral lower extremity DVTs following a hip surgery 2 years ago. He is no longer on anticoagulants. He denies paresthesias or weakness. - Past Medical History (1) Closed right hip fracture Status: Resolved (2) DVT, bilateral lower limbs Status: Resolved (3) Hypertension Status: Chronic Past Medical History - Allergies and Home Meds Allergies/Adverse Reactions: Allergies Penicillins Allergy (Verified 08/12/20 09:20) Rash Primary Care Physician: Shun Estrella MD [Primary Care Provider] - Prior records reviewed: Yes Surgical History: cataract, - - Cyst removed from gum-oral Lives: Spouse/ Significant Other Smoking Status: Current every day smoker - Family History Paternal Family History: Reports: No pertinent history Review of Systems General: Denies: Chills, Fever Eyes: Denies: Visual changes - bilaterally ENT: Denies: Bilateral ear pain Cardiovascular: Denies: Chest pain Respiratory: Denies: Dyspnea, Cough Gastrointestinal: Denies: Abdominal pain, Vomiting, Diarrhea Musculoskeletal: Reports: Extremity Pain. Denies: Swelling Skin: Denies: Rash Neurological: Denies: Headache Hematologic: Denies: Easy bruising, Easy bleeding Allergy: Denies: Uticaria Physical Exam Vital Signs/Narrative: Vital Signs Temp Pulse Resp BP Pulse Ox 08/12/20 09:22 97.2 F L 64 17 137/85 H 97 Inital Vital Signs reviewed: Yes General: Well nourished, Well developed Head: Normocephalic ENT: Moist mucous membranes Neck: Supple Cardiovascular: Regular rate, Regular rhythm Respiratory: No distress, CTA bilaterally Abdomen: Soft, Nontender Extremities: - - Mild tenderness on the plantar surface of the foot at the base of the calcaneus. No open wounds noted. No erythema or edema noted. Mild tenderness in the posterior calf. Skin: Normal color Neurological: Alert, Oriented x3, Normal Strength, Normal Sensation Psychological: Normal affect Diagnostic/Tx/Re-eval Left foot x-ray per my review reveals no evidence of fracture. He does have a spur noted on the plantar surface of the calcaneus. Venous ultrasound of the left lower extremity reveals no evidence of DVT. - Medical Decision Making Test results discussed with patient and at bedside. I do believe he has early plantar fasciitis as he is tender over the plantar surface of the calcaneus. He will be given a short burst of steroids to help calm this down. He will be referred to podiatry for follow-up if not improving. ED Disposition - Plan for ED Patient: Disposition: Home or Assisted Living Diagnosis: Plantar fasciitis Instructions: ED Heel Spur, ED Plantar Fasciitis Prescriptions: Prednisone [Deltasone] 40 mg PO DAILY #10 tablet Referrals: Shun Estrella MD [Primary Care Provider] - Kailyn Bauer DPM [STAFF PHYSICIAN] - 1 Week if not improving
[2020-08-12 09:39] VITALS: RESP 18
[2020-08-12 10:19] VITALS: BP 134/63; PULSE 72; RESP 15; O2SAT 97
[2020-08-12] MEDS: predniSONE 20 MG Tablet 40 MG PO (10:19)
== END 2020-08-12 10:20 | disposition home or self-care (01) ==
LOC: ED 10:06
PROVIDERS: Emergency Provider Emergency Medicine
DX: M72.2 Plantar fascial fibromatosis (principal); I10 Essential (primary) hypertension; F17.200 Nicotine dependence, unspecified, uncomplicated; Z86.718 Personal history of other venous thrombosis and embolism
CPT/HCPCS: 73630; 93971; 99283